=== PATIENT | female | born 1935 | race Caucasian/White ===

== ENCOUNTER 2018-04-16 11:46 | Inpatient (IN) | payer OTHER, BC ==
--- NOTE | 2018-04-16 12:05 | PDOC ---
History of Present Illness <DankEliza - Last Filed: 04/16/18 15:30> - General History Source: Patient Exam Limitations: Dementia - History of Present Illness Initial Comments: 04/16/18 15:31 The patient is an 82-year-old female, with a past medical history of HTN, diverticulitis, dementia, hypothyroidism, cardiomyopathy, and depression, who presents to the ED chest pain x1 week. The patients pain is worsened with deep inspiration and is associated with shortness of breath and a cough productive of white sputum. The patient was recently admitted in February 2018 for similar symptoms and viral URI. also has had recurrent ED visits this week, sent back to [facility] where she resides at assisted living facility. HPI is limited due to dementia. ROS is limited due to dementia. Allergies: amoxicillin, chlorhexidine, ciprofloxacin, codeine, quinolones. Social History: None reported. Surgical History: B/L knee replacement. PCP: Dr. Vidal 04/16/18 15:32 04/16/18 15:33 <Rekha Ramires - Last Filed: 04/16/18 18:51> - General Chief Complaint: Respiratory Distress Stated Complaint: Shortness of Breath Time Seen by Provider: 04/16/18 12:03 Past History <Eliza eWems - Last Filed: 04/16/18 15:30> - Past Medical History Anemia: No Asthma: No Cancer: No Cardiac Disorders: No COPD: No CHF: No Dementia: Yes Diabetes: No GI Disorders: Yes (diverticulitis) Disorders: No HTN: Yes Hypercholesterolemia: No Liver Disease: No Psychiatric Problems: Yes (depression) Seizures: No Thyroid Disease: No - Surgical History Abdominal Surgery: No Appendectomy: No Cardiac Surgery: No Cholecystectomy: No Lung Surgery: No Neurologic Surgery: No Orthopedic Surgery: Yes (bilat knee replacement) - Suicide/Smoking/Psychosocial Hx Smoking History: Never smoked Have you smoked in the past 12 months: No Information on smoking cessation initiated: No Hx Alcohol Use: No Drug/Substance Use Hx: No Substance Use Type: None Hx Substance Use Treatment: No <Rekha Ramires - Last Filed: 04/16/18 18:51> - Past Medical History Allergies/Adverse Reactions: Allergies Allergy/AdvReac Type Severity Reaction Status Date / Time amoxicillin Allergy Verified 04/16/18 11:59 chlorhexidine Allergy Verified 04/16/18 11:59 ciprofloxacin [From Cipro] Allergy Verified 04/16/18 11:59 codeine Allergy Verified 04/16/18 11:59 Quinolones Allergy Verified 04/16/18 11:59 Sulfa (Sulfonamide Allergy Verified 04/16/18 11:59 Antibiotics) sulfamethoxazole Allergy Verified 04/16/18 11:59 [From Bactrim] trimethoprim [From Bactrim] Allergy Verified 04/16/18 11:59 Home Medications: Ambulatory Orders Acetaminophen 650 mg PO QID PRN 04/16/18 Albuterol 2.5/Ipratropium 0.5 [Duoneb -] 1 neb NEB Q4H PRN 04/16/18 Albuterol Sulfate [Proventil HFA Inhaler -] 1 - 2 inh PO QID PRN 04/16/18 Comp.stocking,Thigh,Long,Small [T.e.d. Anti-Embolism Stocking] 1 each MC DAILY 04/16/18 Furosemide 40 mg PO BID 04/16/18 Ibuprofen [Advil -] 200 mg PO DAILY 04/16/18 Ipratropium/Albuterol Sulfate [Iprat-Albut 0.5-3(2.5) mg/3 ml] 3 ml IH BID 04/16 Levothyroxine [Synthroid -] 50 mcg PO DAILY 04/16/18 Mirabegron [Myrbetriq] 25 mg PO DAILY 04/16/18 Mirtazapine 7.5 mg PO HS 04/16/18 Montelukast Na [Singulair -] 10 mg PO HS 04/16/18 Multivit,Tx with Iron,Minerals [Sfyuilwm-Y-V with Minerals] 1 each PO DAILY *Physical Exam - Vital Signs Last Vital Signs Temp Pulse Resp BP Pulse Ox 98.2 F 86 20 117/73 100 04/16/18 12:30 04/16/18 12:50 04/16/18 12:50 04/16/18 12:50 04/16/18 12:50 <Eliza Weems - Last Filed: 04/16/18 15:30> - Vital Signs Last Vital Signs Temp Pulse Resp BP Pulse Ox 99.2 F 86 22 H 143/65 89 L 04/16/18 11:56 04/16/18 11:56 04/16/18 11:56 04/16/18 11:56 04/16/18 11:56 - Physical Exam Comments: 04/16/18 15:33 General: Well appearing, awake, NAD. speaking full sentences. HEENT: NCAT, PERRL, EOMI, clear conjunctiva, anicteric, moist mucus membranes, clear oropharynx, no oral lesions.. Neck: neck supple, FROM Resp: (+)Scant rhonchi at the bases. no wheezing or respiratory distress or tachypnea. CVS: RRR, no murmurs, 2+ peripheral pulses throughout, no peripheral edema Abdomen: soft, NTND, no peritoneal signs. Back: nontender, normal inspection and ROM MSK: no edema, GONZALEZ x4, ROM intact. No clubbing or cyanosis. normal bulk and tone. Neuro: (+)Patient is confused and oriented only to person. No focal neurologic deficits. SILT, 5/5 distal and prox strength in all extrem. Skin: warm and well perfused, cap refill <2 sec, normal color 04/16/18 15:34 <Rekha Ramires - Last Filed: 04/16/18 18:51> ED Treatment Course - LABORATORY CBC & Chemistry Diagram: 04/16/18 12:45 04/16/18 12:45 - ADDITIONAL ORDERS Additional order review: Laboratory Results 04/16/18 04/16/18 12:45 12:45 PT with INR 10.70 INR 0.95 Sodium 138 Potassium 4.7 Chloride 100 Carbon Dioxide 31 Anion Gap 6 L BUN 19 H Creatinine 1.1 Creat Clearance w eGFR 47.43 Random Glucose 185 H Calcium 8.6 Magnesium 2.2 Total Bilirubin 0.5 AST 42 H ALT 27 Alkaline Phosphatase 62 Troponin I < 0.02 Total Protein 6.4 Albumin 2.9 L 04/16/18 12:45 RBC 3.93 MCV 97.6 H MCHC 32.3 RDW 15.1 MPV 9.1 D Neutrophils % 75.2 D Lymphocytes % 10.9 D Monocytes % 7.8 Eosinophils % 2.7 Basophils % 3.4 H D - Medications Given in the ED: ED Medications Discontinued Medications Generic Name Dose Route Start Last Admin Trade Name Freq PRN Reason Stop Dose Admin Albuterol/Ipratropium 1 amp 04/16/18 13:11 04/16/18 13:15 Duoneb - NEB 04/16/18 13:12 1 amp ONCE ONE Administration <Eliza Weems - Last Filed: 04/16/18 15:30> - LABORATORY CBC & Chemistry Diagram: 04/16/18 12:45 04/16/18 12:45 <Rekha Ramires - Last Filed: 04/16/18 18:51> Medical Decision Making - Medical Decision Making 04/16/18 15:31 Calvin 82 YOF past medical history of COPD?, HTN, diverticulitis, dementia, hypothyroidism, cardiomyopathy, and depression presenting with chest pain, cough and sob x 1 week, recent admit for similar sx and viral URI in February 2018. History slightly limited due to dementia. - per PMD, does have recurrent ED visits for sob/cough and seen several times in ED this week. DDx. viral bronchitis, pneumonia, effusion, COPD,. ACS, costochondritis. Vital signs reviewed, wnl. no fevers here. on supp O2 for comfort and mild spO2 drop to 89% on RA initially Medical Plan: CBC, CMP, ECG, cards panel/trop. CXR Prior notes reviewed, including admissions, discharges and consultations. laboratory results and imaging reviewed, basic labs, coags, and lytes wnl, notable for neg trop so doubt ACS. EKG normal sinus rhythm, no interval abnormalities, narrow QRS, ST and T wave segments and morphology normal. Nonspecific T wave abnormalities, LAD, poor R wave progression, unchanged from prior. ED course: given duonebs for cough and respiratory support, no wheezing or respiratory distress, titrating off O2. has had prior CT imaging done, unlikely PE. in no acute distress, remains stable. - spoke with Dr Vidal, updated with results, no indication for admission, if SpO2 >90%, and has ?COPD.had discussion with family members, amenable to observation admission, monitoring and rehab placement. 04/16/18 16:08 04/16/18 16:09 <Rekha Ramires - Last Filed: 04/16/18 18:51> *DC/Admit/Observation/Transfer - Attestations Scribe Attestion: 04/16/18 14:31 Documentation prepared by Eliza Weems, acting as quality engineer medical device for Rekha Ramires MD. <Eliza Weems Last Filed: 04/16/18 15:30> - Discharge Dispostion Decision to Admit order: Yes Decision to Admit order Date/Time: 04/16/18 16:08 Decision to Admit Order Category Date Time Status Decision to Admit to Hospital Routine Admission 04/16/18 16:02 Ordered - Attestations Physician Attestion: 04/16/18 18:51 I, Rekha Ramires MD, attest that this document has been prepared under my direction and personally reviewed by me in its entirety. I further attest, that it accurately reflects all work, treatment, procedures and medical decision -making performed by me. <Rkeha Ramires - Last Filed: 04/16/18 18:51> Diagnosis at time of Disposition: Chest pain, Shortness of breath, Hypoxia - Discharge Dispostion Condition at time of disposition: Guarded
[2018-04-16 13:03] LABS: BASO % 3.4 % (0-2.0); EOS % 2.7 % (0-4.5); HEMATOCRIT 38.3 % (32.4-45.2); HEMOGLOBIN 12.4 GM/dL (10.7-15.3); LYMPH % 10.9 % (8-40); MCH 31.5 pg (25.7-33.7); MCHC 32.3 g/dl (32.0-36.0); MEAN CELL VOLUME 97.6 fl (80-96); MEAN PLT VOLUME 9.1 fl (7.5-11.1); MONO % 7.8 % (3.8-10.2); NEUT % 75.2 % (42.8-82.8); PLATELET COUNT 157 K/MM3 (134-434); RBC 3.93 M/mm3 (3.60-5.2); RDW 15.1 % (11.6-15.6); WHITE BLOOD COUNT 6.4 K/mm3 (4.0-10.0)
[2018-04-16] MEDS ORDERED: ALBUTEROL SO4 2.5/IPRATROPIUM 0.5 INH SOL 3 ML VIAL.NEB. NEB ONE ×4 (13:11→15:46)
[2018-04-16 13:23] LABS: INR 0.95 (0.83-1.09); PROTHROMBIN TIME (PATIENT) 10.7 SEC (9.7-13.0)
[2018-04-16 13:38] LABS: ALBUMIN 2.9 g/dl (3.4-5.0); ALK PHOS 62 U/L (45-117); ANION GAP 6 MMOL/L (8-16); BILIRUBIN,TOTAL 0.5 mg/dL (0.2-1); BLOOD UREA NITROGEN 19 mg/dL (7-18); CALCIUM 8.6 mg/dL (8.5-10.1); CHLORIDE 100 mmol/L (98-107); CO2 31 mmol/L (21-32); CREATININE 1.1 mg/dL (0.55-1.3); GLUCOSE,RANDOM 185 mg/dL (74-106); MAGNESIUM 2.2 mg/dL (1.8-2.4); POTASSIUM 4.7 mmol/L (3.5-5.1); SGOT/AST 42 U/L (15-37); SGPT/ALT 27 U/L (13-61); SODIUM 138 mmol/L (136-145); TOT PROT 6.4 g/dl (6.4-8.2)
[2018-04-16] MEDS ORDERED: methylPREDNISolone NA SUCC 125 MG/2 ML VIAL IVPUSH ONE (14:42)
--- NOTE | 2018-04-16 15:08 | EKG ---
Test Reason : Blood Pressure : / mmHG Vent. Rate : 089 BPM Atrial Rate : 089 BPM P-R Int : 154 ms QRS Dur : 110 ms QT Int : 356 ms P-R-T Axes : -15 -46 084 degrees QTc Int : 433 ms NORMAL SINUS RHYTHM WITH SINUS ARRHYTHMIA LEFT ANTERIOR FASCICULAR BLOCK LEFT VENTRICULAR HYPERTROPHY WITH REPOLARIZATION ABNORMALITY ABNORMAL ECG WHEN COMPARED WITH ECG OF 28-FEB-2018 15:02, INCOMPLETE LEFT BUNDLE BRANCH BLOCK IS NO LONGER PRESENT Confirmed by RANDY GRANDE MD ([id number]) on 04/16/2018 3:08:27 PM Referred By: Confirmed By:RANDY GRANDE MD
[2018-04-16] MEDS ORDERED: methylPREDNISolone NA SUCC 125 MG/2 ML VIAL ONE (15:46)
[2018-04-16 16:45] LABS: VENOUS PC02 59.4 mmHg (38-52); VENOUS PH 7.36 (7.32-7.42); VENOUS PO2 37.7 mmHg (28-48)
[2018-04-16] MEDS ORDERED: BUDESONIDE/FORMETEROL FUMARATE 80/4.5 mcg INHALER IH ONE (17:02)
--- NOTE | 2018-04-16 21:57 | HP ---
Admitting History and Physical - Admission Chief Complaint: short og breath History of Present Illness: 82-year-old female, with a PMH of HTN, diverticulitis, dementia with aggressive behavior, hypothyroidism, cardiomyopathy, and depression, who presents to the ED chest pain/ shortness of breath x1 week. She is followed by Dr. Marcello Parikh and was seen in his office 2 days ago-- Saturday04/14/18, no changes made and set for follow up in 4 months. Patient has been in ER 3 times in the last 10 days -- ER work up has been negative except for baseline COPD. She has dementia so hx is limited and not consistent. I have discussed care with daughter Yeimi and sister in law Raysa Phillips. The patient reports inc SOB with any activity / report chest pain but denies diaphoresis / pain radiation , and is unclear what precipitates or alleviates the pain. She was recently admitted to [facility] (2 weeks ago) for COPD exacerbation. Earlier in the summer was admitted to [facility] in February 2018 for similar symptoms and viral URI. She resides at [address] [place] [address] in the assisted living floors. HPI is limited due to dementia. 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 Cardiovascular: Yes: CAD, CHF, HTN Pulmonary: Yes: COPD Renal/: Yes: Renal Inusuff Reproductive: Yes: Postmenopausal Psych: Yes: Anxiety - Past Surgical History Past Surgical History: Yes: None - Smoking History Smoking history: Never smoked Have you smoked in the past 12 months: No - Alcohol/Substance Use Hx Alcohol Use: No - Social History Usual Living Arrangement: Yes: Assisted Living ADL: Support Services History of Recent Travel: No Home Medications - Allergies Allergies/Adverse Reactions: Allergies Allergy/AdvReac Type Severity Reaction Status Date / Time amoxicillin Allergy Verified 04/16/18 11:59 chlorhexidine Allergy Verified 04/16/18 11:59 ciprofloxacin [From Cipro] Allergy Verified 04/16/18 11:59 codeine Allergy Verified 04/16/18 11:59 Quinolones Allergy Verified 04/16/18 11:59 Sulfa (Sulfonamide Allergy Verified 04/16/18 11:59 Antibiotics) sulfamethoxazole Allergy Verified 04/16/18 11:59 [From Bactrim] trimethoprim [From Bactrim] Allergy Verified 04/16/18 11:59 - Home Medications Home Medications: Ambulatory Orders Acetaminophen 650 mg PO QID PRN 04/16/18 Albuterol 2.5/Ipratropium 0.5 [Duoneb -] 1 neb NEB Q4H PRN 04/16/18 Albuterol Sulfate [Proventil HFA Inhaler -] 1 - 2 inh PO QID PRN 04/16/18 Comp.stocking,Thigh,Long,Small [T.e.d. Anti-Embolism Stocking] 1 each MC DAILY 04/16/18 Furosemide 40 mg PO BID 04/16/18 Ibuprofen [Advil -] 200 mg PO DAILY 04/16/18 Ipratropium/Albuterol Sulfate [Iprat-Albut 0.5-3(2.5) mg/3 ml] 3 ml IH BID 04/16 Levothyroxine [Synthroid -] 50 mcg PO DAILY 04/16/18 Mirabegron [Myrbetriq] 25 mg PO DAILY 04/16/18 Mirtazapine 7.5 mg PO HS 04/16/18 Montelukast Na [Singulair -] 10 mg PO HS 04/16/18 Multivit,Tx with Iron,Minerals [Msatyabb-G-I with Minerals] 1 each PO DAILY Review of Systems Unable to obtain ROS, reason: dementia - Review of Systems Constitutional: denies: Chills, Diaphoresis, Fever, Lethargy, Loss of Appetite, Night Sweats, Weakness Eyes: reports: No Symptoms HENT: reports: No Symptoms Neck: reports: No Symptoms Cardiovascular: reports: Shortness of Breath Respiratory: reports: Cough, Exercise Intolerance, SOB on Exertion Gastrointestinal: reports: No Symptoms Genitourinary: reports: No Symptoms Breasts: reports: No Symptoms Reported Musculoskeletal: reports: No Symptoms Integumentary: reports: No Symptoms Neurological: reports: Pre-Existing Deficit, Unsteady Gait Physical Examination Vital Signs: Vital Signs Temperature 98.0 F 04/16/18 19:40 Pulse Rate 92 H 04/16/18 19:40 Respiratory Rate 18 04/16/18 19:40 Blood Pressure 145/66 04/16/18 19:40 O2 Sat by Pulse Oximetry (%) 95 04/16/18 19:40 Constitutional: Yes: Mild Distress, Obese Eyes: Yes: WNL, Conjunctiva Clear HENT: Yes: WNL, Atraumatic, Normocephalic Neck: Yes: Trachea Midline Cardiovascular: Yes: Regular Rate and Rhythm Respiratory: Yes: Poor Air Entry, SOB on Exertion Gastrointestinal: Yes: Normal Bowel Sounds, Abdomen, Obese ...Rectal Exam: Yes: Deferred Renal/: Yes: WNL Breast(s): Yes: WNL Edema: Yes Peripheral Pulses WNL: No Neurological: Yes: Confusion, Pre-Existing Deficit, Unsteady Gait Psychiatric: Yes: Alert Labs: CBC, BMP 04/16/18 12:45 04/16/18 12:45
[2018-04-16] MEDS: ALBUTEROL SO4 2.5/IPRATROPIUM 0.5 INH SOL 3 ML VIAL.NEB. NEB SCH (23:00)
[2018-04-16] MEDS: DOCUSATE SODIUM 100 MG CAPSULE (FP) PO SCH (23:29)
[2018-04-16] MEDS: methylPREDNISolone NA SUCC 40 MG/1 ML VIAL IVPUSH SCH (23:29)
[2018-04-16] MEDS: MONTELUKAST NA 10 MG TABLET PO SCH (23:30)
[2018-04-17] MEDS ORDERED: ALBUTEROL SO4 2.5/IPRATROPIUM 0.5 INH SOL 3 ML VIAL.NEB. NEB PRN (02:24)
[2018-04-17] MEDS ORDERED: ALBUTEROL SO4 2.5/IPRATROPIUM 0.5 INH SOL 3 ML VIAL.NEB. NEB ONE (02:26)
[2018-04-17] MEDS: ALBUTEROL SO4 2.5/IPRATROPIUM 0.5 INH SOL 3 ML VIAL.NEB. NEB SCH ×4 (07:25→20:20)
[2018-04-17] MEDS: FUROSEMIDE 40 MG TABLET (FP) PO SCH ×2 (08:06→15:05)
[2018-04-17] MEDS ORDERED: PT OWN MED DRAWER 7, Y5N ONE (10:29)
[2018-04-17] MEDS: DOCUSATE SODIUM 100 MG CAPSULE (FP) PO SCH ×2 (10:37→21:39)
[2018-04-17] MEDS: POLYETHYLENE GLYCOL 3350 119 GM BTL PO SCH (10:37)
[2018-04-17] MEDS: methylPREDNISolone NA SUCC 40 MG/1 ML VIAL IVPUSH SCH ×2 (10:37→21:39)
--- NOTE | 2018-04-17 12:03 | CON.PULM ---
Consult Consult Specialty:: PULMONARY Referred by:: Dr. Vidal Reason for Consultation:: shortness of breath - History of Present Illness Chief Complaint: shortness of breath History of Present Illness: 82yo female with h/o HTN, hypothyroidism, depression, dementia who was admitted with worsening shortness of breath x 1 week. She denies any chest pain or discomfort. no palpitations. She does endorse a nonproductive cough without wheezing. No fevers, chills or sweats. She was recently admitted for a COPD exacerbation. 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 Denies any history of asthma or COPD. Does report some improvement with nebulizer treatments. 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 Cardio/Vascular: Yes: CAD, CHF, HTN Pulmonary: Yes: COPD Renal/: Yes: Renal Inusuff Psych: Yes: Anxiety - Past Surgical History Past Surgical History: Yes: None - Alcohol/Substance Use Hx Alcohol Use: No - Smoking History Smoking history: Never smoked Have you smoked in the past 12 months: No - Social History ADL: Support Services History of Recent Travel: No Home Medications - Allergies Allergies/Adverse Reactions: Allergies Allergy/AdvReac Type Severity Reaction Status Date / Time amoxicillin Allergy Verified 04/16/18 11:59 chlorhexidine Allergy Verified 04/16/18 11:59 ciprofloxacin [From Cipro] Allergy Verified 04/16/18 11:59 codeine Allergy Verified 04/16/18 11:59 Quinolones Allergy Verified 04/16/18 11:59 Sulfa (Sulfonamide Allergy Verified 04/16/18 11:59 Antibiotics) sulfamethoxazole Allergy Verified 04/16/18 11:59 [From Bactrim] trimethoprim [From Bactrim] Allergy Verified 04/16/18 11:59 - Home Medications Home Medications: Ambulatory Orders Acetaminophen 650 mg PO QID PRN 04/16/18 Albuterol 2.5/Ipratropium 0.5 [Duoneb -] 1 neb NEB Q4H PRN 04/16/18 Albuterol Sulfate [Proventil HFA Inhaler -] 1 - 2 inh PO QID PRN 04/16/18 Comp.stocking,Thigh,Long,Small [T.e.d. Anti-Embolism Stocking] 1 each MC DAILY 04/16/18 Furosemide 40 mg PO BID 04/16/18 Ibuprofen [Advil -] 200 mg PO DAILY 04/16/18 Ipratropium/Albuterol Sulfate [Iprat-Albut 0.5-3(2.5) mg/3 ml] 3 ml IH BID 04/16 Levothyroxine [Synthroid -] 50 mcg PO DAILY 04/16/18 Mirabegron [Myrbetriq] 25 mg PO DAILY 04/16/18 Mirtazapine 7.5 mg PO HS 04/16/18 Montelukast Na [Singulair -] 10 mg PO HS 04/16/18 Multivit,Tx with Iron,Minerals [Ybvvbori-C-K with Minerals] 1 each PO DAILY Review of Systems - Review of Systems Constitutional: denies: Chills, Fever Eyes: denies: Recent Change in Vision HENT: denies: Nasal Congestion, Throat Pain Neck: denies: Stiffness, Tenderness Cardiovascular: denies: Chest Pain, Shortness of Breath Respiratory: reports: Cough. denies: Hemoptysis, Wheezing Gastrointestinal: denies: Abdominal Pain, Nausea, Vomiting Genitourinary: denies: Dysuria, Hematuria Neurological: denies: Dizziness, Headache Physical Exam Vital Sings: Vital Signs Temperature 97.8 F 04/17/18 06:00 Pulse Rate 95 H 04/17/18 06:00 Respiratory Rate 20 04/17/18 06:00 Blood Pressure 151/88 04/17/18 06:00 O2 Sat by Pulse Oximetry (%) 93 L 04/16/18 22:02 Constitutional: Yes: Calm Eyes: Yes: Conjunctiva Clear, EOM Intact HENT: Yes: Atraumatic, Normocephalic Neck: Yes: Supple, Trachea Midline Cardiovascular: Yes: Regular Rate and Rhythm Respiratory: Yes: Diminished (distant breath sounds). No: Wheezes ...Clubbing: No Gastrointestinal: Yes: Normal Bowel Sounds, Soft. No: Tenderness Edema: No Labs: CBC, BMP 04/16/18 12:45 04/16/18 12:45 Imaging - Results Chest X-ray: Report Reviewed, Image Reviewed (no infiltrates) Problem List - Problems (1) COPD exacerbation Code(s): J44.1 - CHRONIC OBSTRUCTIVE PULMONARY DISEASE W (ACUTE) EXACERBATION (2) Cough Code(s): R05 - COUGH (3) HTN (hypertension) Code(s): I10 - ESSENTIAL (PRIMARY) HYPERTENSION (4) Hypothyroidism Code(s): E03.9 - HYPOTHYROIDISM, UNSPECIFIED Assessment/Plan Cough r/o Acute COPD Exacerbation Pulmonary HTN HTN Hypothyroidism Dementia - agree with empiric steroids - inhaled bronchodilators - O2 to keep SpO2 >90% - will need outpt PFTs - DVT prophylaxis Thank you for this consult Marcello Hall MD
--- NOTE | 2018-04-17 13:05 | PN ---
Progress Note (short form) - Note Progress Note: 82 y/o female admitted for sob/ cough and chest pain. Denies pain and discomfort. Pt found lying comfortably with O2 in place. Vital Signs Period Temp Pulse Resp BP Sys/Fox Pulse Ox Last 24 Hr 97.5 F-98.6 F 84-95 18-20 121-151/65-88 93-95 CBC, BMP 04/16/18 12:45 04/16/18 12:45 HEENT- NL Neck- Supple Lungs- CTAB Heart-S1/S2 Abd-obese Ext-No LE edema Active Medications Acetaminophen (Tylenol -) 650 mg PO Q4H PRN PRN Reason: PAIN LEVEL 1-5 Albuterol/Ipratropium (Duoneb -) 1 amp NEB RQID [facility] Last Admin: 04/17/18 11:51 Dose: 1 amp Albuterol/Ipratropium (Duoneb -) 1 amp NEB Q4H PRN PRN Reason: SHORT OF BREATH/WHEEZING Last Admin: 04/17/18 03:01 Dose: 1 amp Docusate Sodium (Colace -) 200 mg PO BID [facility] Last Admin: 04/17/18 10:37 Dose: 200 mg Furosemide (Lasix -) 40 mg PO BIDLASIX [facility] Last Admin: 04/17/18 08:06 Dose: 40 mg Methylprednisolone Sodium Succinate (Solu-Medrol -) 40 mg IVPUSH BID [facility] Last Admin: 04/17/18 10:37 Dose: 40 mg Montelukast Sodium (Singulair -) 10 mg PO HS [facility] Last Admin: 04/16/18 23:30 Dose: 10 mg Polyethylene Glycol (Miralax (For Daily Use) -) 17 gm PO DAILY [facility] Last Admin: 04/17/18 10:37 Dose: 17 gm # COPD Pulm consult appreciated cont inhaled bronchodilators cont steroids will need outpt PFTs O2 Sat 93-95 currently #HTN BP stable #Dementia Behavior stable
[2018-04-17] MEDS: MONTELUKAST NA 10 MG TABLET PO SCH (21:39)
[2018-04-18] MEDS: ACETAMINOPHEN 325 MG TABLET (FP) PO PRN ×2 (02:19→23:37)
[2018-04-18] MEDS: FUROSEMIDE 40 MG TABLET (FP) PO SCH ×2 (06:46→14:13)
[2018-04-18 07:32] LABS: BASO % 0.2 % (0-2.0); HEMATOCRIT 33.9 % (32.4-45.2); LYMPH % 7.1 % (8-40); MCH 31.6 pg (25.7-33.7); MCHC 32.5 g/dl (32.0-36.0); MEAN CELL VOLUME 97.3 fl (80-96); MEAN PLT VOLUME 7.9 fl (7.5-11.1); MONO % 7.7 % (3.8-10.2); PLATELET COUNT 252 K/MM3 (134-434); RBC 3.48 M/mm3 (3.60-5.2); WHITE BLOOD COUNT 11.5 K/mm3 (4.0-10.0)
[2018-04-18] MEDS: ALBUTEROL SO4 2.5/IPRATROPIUM 0.5 INH SOL 3 ML VIAL.NEB. NEB SCH ×4 (07:32→21:23)
[2018-04-18 08:02] LABS: ALBUMIN 2.8 g/dl (3.4-5.0); ALK PHOS 54 U/L (45-117); ANION GAP 6 MMOL/L (8-16); BILIRUBIN,TOTAL 0.3 mg/dL (0.2-1); BLOOD UREA NITROGEN 37 mg/dL (7-18); CALCIUM 8.7 mg/dL (8.5-10.1); CHLORIDE 101 mmol/L (98-107); CO2 32 mmol/L (21-32); CREATININE 1.4 mg/dL (0.55-1.3); POTASSIUM 4.6 mmol/L (3.5-5.1); SGOT/AST 13 U/L (15-37); SGPT/ALT 20 U/L (13-61); SODIUM 139 mmol/L (136-145); TOT PROT 6.1 g/dl (6.4-8.2)
[2018-04-18 09:33] LABS: GLUCOSE,RANDOM 344 mg/dL (74-106)
--- NOTE | 2018-04-18 09:58 | PN ---
Progress Note (short form) - Note Progress Note: 82 y/o female found sitting in bed eating breakfast. States that she had difficulty sleeping. Denies pain/sob. O2 in place via nasal cannula. Vital Signs Period Temp Pulse Resp BP Sys/Fox Pulse Ox Last 24 Hr 97.4 F-97.7 F 71-88 16-24 110-129/50-74 92 CBC, BMP 04/18/18 06:30 04/18/18 06:30 HEENT- NL Neck-Supple Lungs-CTAB Heart- S1/S2 Abd- Soft, NT, Obese Ext- No LE edema Active Medications Acetaminophen (Tylenol -) 650 mg PO Q4H PRN PRN Reason: PAIN LEVEL 1-5 Last Admin: 04/18/18 02:19 Dose: 650 mg Albuterol/Ipratropium (Duoneb -) 1 amp NEB RQID [facility] Last Admin: 04/17/18 20:20 Dose: 1 amp Albuterol/Ipratropium (Duoneb -) 1 amp NEB Q4H PRN PRN Reason: SHORT OF BREATH/WHEEZING Last Admin: 04/17/18 03:01 Dose: 1 amp Docusate Sodium (Colace -) 200 mg PO BID [facility] Last Admin: 04/17/18 21:39 Dose: 200 mg Furosemide (Lasix -) 40 mg PO BIDLASIX [facility] Last Admin: 04/18/18 06:46 Dose: 40 mg Methylprednisolone Sodium Succinate (Solu-Medrol -) 40 mg IVPUSH BID [facility] Last Admin: 04/17/18 21:39 Dose: 40 mg Montelukast Sodium (Singulair -) 10 mg PO HS [facility] Last Admin: 04/17/18 21:39 Dose: 10 mg Polyethylene Glycol (Miralax (For Daily Use) -) 17 gm PO DAILY [facility] Last Admin: 04/17/18 10:37 Dose: 17 gm #Elevated [id number] BGM orders placed Novolog sliding scale # COPD cont inhaled bronchodilators cont steroids will need outpt PFTs O2 Sat 92 #HTN BP stable #Dementia Behavior stable
[2018-04-18] MEDS: methylPREDNISolone NA SUCC 40 MG/1 ML VIAL IVPUSH SCH ×2 (10:45→21:25)
[2018-04-18] MEDS: DOCUSATE SODIUM 100 MG CAPSULE (FP) PO SCH ×2 (10:46→21:25)
[2018-04-18] MEDS: POLYETHYLENE GLYCOL 3350 119 GM BTL PO SCH (10:46)
[2018-04-18] MEDS: INSULIN SLIDING SCALE (NOVOLOG) 1 VIAL SQ SCH ×3 (12:12→21:25)
[2018-04-18] MEDS: sitaGLIPtin PHOSPHATE 50 MG TABLET PO SCH (12:24)
--- NOTE | 2018-04-18 13:14 | PN ---
Progress Note, Physician History of Present Illness: PULMONARY FEELING BETTER,LESS DYSPNEIC - Current Medication List Current Medications: Active Medications Acetaminophen (Tylenol -) 650 mg PO Q4H PRN PRN Reason: PAIN LEVEL 1-5 Last Admin: 04/18/18 02:19 Dose: 650 mg Albuterol/Ipratropium (Duoneb -) 1 amp NEB RQID [facility] Last Admin: 04/18/18 11:45 Dose: 1 amp Albuterol/Ipratropium (Duoneb -) 1 amp NEB Q4H PRN PRN Reason: SHORT OF BREATH/WHEEZING Last Admin: 04/17/18 03:01 Dose: 1 amp Docusate Sodium (Colace -) 200 mg PO BID [facility] Last Admin: 04/18/18 10:46 Dose: 200 mg Furosemide (Lasix -) 40 mg PO BIDLASIX [facility] Last Admin: 04/18/18 06:46 Dose: 40 mg Insulin Aspart (Novolog Vial Sliding Scale -) 1 vial SQ ACHS [facility]; Protocol Last Admin: 04/18/18 12:12 Dose: 8 units Methylprednisolone Sodium Succinate (Solu-Medrol -) 40 mg IVPUSH BID [facility] Last Admin: 04/18/18 10:45 Dose: 40 mg Montelukast Sodium (Singulair -) 10 mg PO HS [facility] Last Admin: 04/17/18 21:39 Dose: 10 mg Polyethylene Glycol (Miralax (For Daily Use) -) 17 gm PO DAILY [facility] Last Admin: 04/18/18 10:46 Dose: 17 gm Sitagliptin Phosphate (Januvia -) 50 mg PO DAILY@0700 [facility] Last Admin: 04/18/18 12:24 Dose: 50 mg - Objective Vital Signs: Vital Signs Temperature 97.5 F L 04/18/18 10:40 Pulse Rate 73 04/18/18 10:40 Respiratory Rate 24 H 04/18/18 10:40 Blood Pressure 120/88 04/18/18 10:40 O2 Sat by Pulse Oximetry (%) 92 L 04/17/18 21:00 Constitutional: Yes: Well Nourished, Calm Eyes: Yes: WNL HENT: Yes: WNL Neck: Yes: WNL Cardiovascular: Yes: Regular Rate and Rhythm, S1, S2 Respiratory: Yes: Wheezes (SCATTERED ZEE WHEEZES) Gastrointestinal: Yes: Normal Bowel Sounds, Soft Extremities: Yes: WNL Edema: No Labs: CBC, BMP 04/18/18 06:30 04/18/18 06:30 INR, PTT INR 0.95 (0.83-1.09) 04/16/18 12:45 Assessment/Plan Problem List - Problems (1) COPD exacerbation Code(s): J44.1 - CHRONIC OBSTRUCTIVE PULMONARY DISEASE W (ACUTE) EXACERBATION (2) Cough Code(s): R05 - COUGH (3) HTN (hypertension) Code(s): I10 - ESSENTIAL (PRIMARY) HYPERTENSION (4) Hypothyroidism Code(s): E03.9 - HYPOTHYROIDISM, UNSPECIFIED Assessment/Plan Cough r/o Acute COPD Exacerbation Pulmonary HTN HTN Hypothyroidism Dementia - steroids - inhaled bronchodilators - O2 to keep SpO2 >90% - outpt PFTs - DVT prophylaxis DR HUERTAS
[2018-04-18] MEDS ORDERED: INSULIN (NOVOLOG) ASPART 100 UNITS/ML 10ML VIAL ONE (21:06)
[2018-04-18] MEDS: MONTELUKAST NA 10 MG TABLET PO SCH (21:25)
[2018-04-19] MEDS: INSULIN SLIDING SCALE (NOVOLOG) 1 VIAL SQ SCH ×4 (06:51→23:22)
[2018-04-19] MEDS: sitaGLIPtin PHOSPHATE 50 MG TABLET PO SCH (06:51)
[2018-04-19] MEDS: FUROSEMIDE 40 MG TABLET (FP) PO SCH ×2 (06:51→14:00)
[2018-04-19] MEDS: ALBUTEROL SO4 2.5/IPRATROPIUM 0.5 INH SOL 3 ML VIAL.NEB. NEB SCH ×4 (07:40→20:50)
[2018-04-19 08:56] LABS: BASO % 0.3 % (0-2.0); EOS % 0.1 % (0-4.5); HEMATOCRIT 36.8 % (32.4-45.2); HEMOGLOBIN 11.9 GM/dL (10.7-15.3); LYMPH % 15.9 % (8-40); MCH 31.7 pg (25.7-33.7); MCHC 32.3 g/dl (32.0-36.0); MEAN CELL VOLUME 98.2 fl (80-96); MEAN PLT VOLUME 7.9 fl (7.5-11.1); MONO % 6.7 % (3.8-10.2); PLATELET COUNT 264 K/MM3 (134-434); RBC 3.75 M/mm3 (3.60-5.2); RDW 14.9 % (11.6-15.6); WHITE BLOOD COUNT 10.7 K/mm3 (4.0-10.0)
[2018-04-19 09:20] LABS: ALBUMIN 3.1 g/dl (3.4-5.0); ALK PHOS 57 U/L (45-117); ANION GAP 2 MMOL/L (8-16); BILIRUBIN,TOTAL 0.3 mg/dL (0.2-1); BLOOD UREA NITROGEN 40 mg/dL (7-18); CALCIUM 9.4 mg/dL (8.5-10.1); CHLORIDE 99 mmol/L (98-107); CO2 39 mmol/L (21-32); CREATININE 1.3 mg/dL (0.55-1.3); GLUCOSE,RANDOM 164 mg/dL (74-106); POTASSIUM 4.2 mmol/L (3.5-5.1); SGOT/AST 15 U/L (15-37); SGPT/ALT 21 U/L (13-61); SODIUM 140 mmol/L (136-145); TOT PROT 6.2 g/dl (6.4-8.2)
[2018-04-19] MEDS: methylPREDNISolone NA SUCC 40 MG/1 ML VIAL IVPUSH SCH ×2 (09:48→23:22)
[2018-04-19] MEDS: DOCUSATE SODIUM 100 MG CAPSULE (FP) PO SCH ×2 (09:48→23:22)
[2018-04-19] MEDS: POLYETHYLENE GLYCOL 3350 119 GM BTL PO SCH (09:56)
--- NOTE | 2018-04-19 12:02 | PN ---
Progress Note (short form) - Note Progress Note: PULMONARY Breathing better. +cough nonproductive. Vital Signs Period Temp Pulse Resp BP Sys/Fox Pulse Ox Last 24 Hr 97.6 F-98.0 F 62-77 20-24 119-144/54-72 94 Gen: NAD at rest Heart: RRR Lung: scattered rhonchi Abd: soft, nontender Ext: no edema CBC, BMP 04/19/18 08:15 04/19/18 08:15 Active Medications Acetaminophen (Tylenol -) 650 mg PO Q4H PRN PRN Reason: PAIN LEVEL 1-5 Last Admin: 04/18/18 23:37 Dose: 650 mg Albuterol/Ipratropium (Duoneb -) 1 amp NEB RQID [facility] Last Admin: 04/19/18 11:30 Dose: 1 amp Albuterol/Ipratropium (Duoneb -) 1 amp NEB Q4H PRN PRN Reason: SHORT OF BREATH/WHEEZING Last Admin: 04/17/18 03:01 Dose: 1 amp Docusate Sodium (Colace -) 200 mg PO BID [facility] Last Admin: 04/19/18 09:48 Dose: 200 mg Furosemide (Lasix -) 40 mg PO BIDLASIX [facility] Last Admin: 04/19/18 06:51 Dose: 40 mg Insulin Aspart (Novolog Vial Sliding Scale -) 1 vial SQ ACHS [facility]; Protocol Last Admin: 04/19/18 06:51 Dose: 3 units Methylprednisolone Sodium Succinate (Solu-Medrol -) 40 mg IVPUSH BID [facility] Last Admin: 04/19/18 09:48 Dose: 40 mg Montelukast Sodium (Singulair -) 10 mg PO HS [facility] Last Admin: 04/18/18 21:25 Dose: 10 mg Polyethylene Glycol (Miralax (For Daily Use) -) 17 gm PO DAILY [facility] Last Admin: 04/19/18 09:56 Dose: 17 gm Sitagliptin Phosphate (Januvia -) 50 mg PO DAILY@0700 [facility] Last Admin: 04/19/18 06:51 Dose: 50 mg A/P Cough r/o Acute COPD Exacerbation Pulmonary HTN HTN Hypothyroidism Dementia - can likely change steroids to PO in AM and taper as outpt - inhaled bronchodilators - O2 to keep SpO2 >90% - will need outpt PFTs - DVT prophylaxis Problem List - Problems (1) COPD exacerbation Code(s): J44.1 - CHRONIC OBSTRUCTIVE PULMONARY DISEASE W (ACUTE) EXACERBATION (2) Cough Code(s): R05 - COUGH (3) HTN (hypertension) Code(s): I10 - ESSENTIAL (PRIMARY) HYPERTENSION (4) Hypothyroidism Code(s): E03.9 - HYPOTHYROIDISM, UNSPECIFIED
[2018-04-19] MEDS ORDERED: guaiFENesin/D-METHORPHAN HB 10 ML UNIT-DOSE CUPS PO PRN (12:03)
[2018-04-19] MEDS: guaiFENesin/D-METHORPHAN HB 5 ML UNIT-DOSE CUPS PO PRN (15:31)
--- NOTE | 2018-04-19 21:33 | PN ---
Progress Note (short form) - Note Progress Note: seen and examined persitent cough / no fever / chill breathing improved Vital Signs Period Temp Pulse Resp BP Sys/Fox Pulse Ox Last 24 Hr 97.6 F-98.4 F 62-69 16-20 101-144/49-69 97 obese female no distress heart s1/s2 lungs occ exp wheezing abd obese ext no edema CBC, BMP 04/19/18 08:15 04/19/18 08:15 Active Medications Acetaminophen (Tylenol -) 650 mg PO Q4H PRN PRN Reason: PAIN LEVEL 1-5 Last Admin: 04/18/18 23:37 Dose: 650 mg Albuterol/Ipratropium (Duoneb -) 1 amp NEB RQID [facility] Last Admin: 04/19/18 20:50 Dose: 1 amp Albuterol/Ipratropium (Duoneb -) 1 amp NEB Q4H PRN PRN Reason: SHORT OF BREATH/WHEEZING Last Admin: 04/17/18 03:01 Dose: 1 amp Docusate Sodium (Colace -) 200 mg PO BID [facility] Last Admin: 04/19/18 09:48 Dose: 200 mg Furosemide (Lasix -) 40 mg PO BIDLASIX [facility] Last Admin: 04/19/18 14:00 Dose: 40 mg Guaifenesin (Guaifenesin Dm Syrup) 10 ml PO Q4H PRN PRN Reason: COUGH Last Admin: 04/19/18 15:31 Dose: 10 ml Insulin Aspart (Novolog Vial Sliding Scale -) 1 vial SQ ACHS [facility]; Protocol Last Admin: 04/19/18 17:22 Dose: 3 units Methylprednisolone Sodium Succinate (Solu-Medrol -) 40 mg IVPUSH BID [facility] Last Admin: 04/19/18 09:48 Dose: 40 mg Montelukast Sodium (Singulair -) 10 mg PO HS [facility] Last Admin: 04/18/18 21:25 Dose: 10 mg Polyethylene Glycol (Miralax (For Daily Use) -) 17 gm PO DAILY [facility] Last Admin: 04/19/18 09:56 Dose: 17 gm Sitagliptin Phosphate (Januvia -) 50 mg PO DAILY@0700 [facility] Last Admin: 04/19/18 06:51 Dose: 50 mg Assmt Cough r/o Acute COPD Exacerbation Pulmonary HTN new onset DM exacerbated by steroids HTN Hypothyroidism Dementia Plan - started on Januvia added sliding scale - change steroids to PO in AM and taper as outpt - inhaled bronchodilators - O2 to keep SpO2 >90% - will need outpt follow up with pulmonary - arrange for STR at time of d/c
[2018-04-19] MEDS: MONTELUKAST NA 10 MG TABLET PO SCH (23:22)
[2018-04-20] MEDS: FUROSEMIDE 40 MG TABLET (FP) PO SCH ×2 (06:53→15:00)
[2018-04-20] MEDS: INSULIN SLIDING SCALE (NOVOLOG) 1 VIAL SQ SCH ×4 (06:53→23:44)
[2018-04-20] MEDS: sitaGLIPtin PHOSPHATE 50 MG TABLET PO SCH (06:53)
[2018-04-20] MEDS: ALBUTEROL SO4 2.5/IPRATROPIUM 0.5 INH SOL 3 ML VIAL.NEB. NEB SCH ×4 (07:50→20:42)
[2018-04-20 08:25] LABS: BASO % 0.5 % (0-2.0); HEMATOCRIT 37.5 % (32.4-45.2); HEMOGLOBIN 12.3 GM/dL (10.7-15.3); LYMPH % 12.4 % (8-40); MCHC 32.9 g/dl (32.0-36.0); MEAN CELL VOLUME 97.3 fl (80-96); MEAN PLT VOLUME 8.2 fl (7.5-11.1); NEUT % 83.1 % (42.8-82.8); PLATELET COUNT 271 K/MM3 (134-434); RBC 3.86 M/mm3 (3.60-5.2); RDW 15.2 % (11.6-15.6); WHITE BLOOD COUNT 10.5 K/mm3 (4.0-10.0)
[2018-04-20] MEDS: guaiFENesin/D-METHORPHAN HB 5 ML UNIT-DOSE CUPS PO PRN ×3 (09:12→23:22)
[2018-04-20 09:30] LABS: ANION GAP 8 MMOL/L (8-16); BLOOD UREA NITROGEN 37 mg/dL (7-18); CALCIUM 9.8 mg/dL (8.5-10.1); CHLORIDE 96 mmol/L (98-107); CHOLESTEROL 227 mg/dL (50-200); CO2 34 mmol/L (21-32); CREATININE 1.3 mg/dL (0.55-1.3); GLUCOSE,RANDOM 188 mg/dL (74-106); HDL CHOLESTEROL 72 mg/dL (40-60); POTASSIUM 4.5 mmol/L (3.5-5.1); SODIUM 138 mmol/L (136-145); TRIGLYCERIDES 114 mg/dL (0-150)
[2018-04-20] MEDS: POLYETHYLENE GLYCOL 3350 119 GM BTL PO SCH (10:24)
[2018-04-20] MEDS: DOCUSATE SODIUM 100 MG CAPSULE (FP) PO SCH ×2 (10:24→22:45)
[2018-04-20] MEDS: methylPREDNISolone NA SUCC 40 MG/1 ML VIAL IVPUSH SCH ×2 (10:24→22:46)
[2018-04-20 11:41] LABS: ANISOCYTOSIS 3+; MACROCYTOSIS 0; OVALOCYTE 1+; PLATELET ESTIMATE NORMAL
--- NOTE | 2018-04-20 12:29 | PN ---
Progress Note (short form) - Note Progress Note: seen and examined persitent cough / no fever / chill breathing improved per patient discussd new Dx of DM Vital Signs Period Temp Pulse Resp BP Sys/Fox Pulse Ox Last 24 Hr 97.6 F-98.4 F 62-69 16-20 101-144/49-69 97 obese female no distress heart s1/s2 lungs occ exp wheezing abd obese ext no edema CBC, BMP 04/20/18 07:30 04/20/18 07:30 Hgb = 8.2 Laboratory Results - last 24 hr 04/20/18 04/20/18 04/20/18 06:42 07:30 07:30 WBC 10.5 H RBC 3.86 Hgb 12.3 Hct 37.5 MCV 97.3 H MCH 32.0 MCHC 32.9 RDW 15.2 Plt Count 271 MPV 8.2 Absolute Neuts (auto) 8.7 H Total Counted Neutrophils % 83.1 H Neutrophils % (Manual) 75.7 Band Neutrophils % 3.7 Lymphocytes % 12.4 D Lymphocytes % (Manual) 15.9 D Monocytes % 4.0 Monocytes % (Manual) 2 L Eosinophils % 0.0 D Eosinophils % (Manual) 0.0 Basophils % 0.5 Basophils % (Manual) 0.0 Myelocytes % (Man) 2 Promyelocytes % (Man) 0 Blast Cells % (Manual) 0 Nucleated RBC % 0 Metamyelocytes 1 Hypochromia 0 Platelet Estimate Normal Polychromasia 0 Poikilocytosis 1+ Basophilic Stippling 1+ Anisocytosis 3+ Microcytosis 3+ Macrocytosis 0 Ovalocytes 1+ Sodium 138 Potassium 4.5 Chloride 96 L Carbon Dioxide 34 H Anion Gap 8 BUN 37 H Creatinine 1.3 Creat Clearance w eGFR 39.12 POC Glucometer 202 Random Glucose 188 H Hemoglobin A1c % Calcium 9.8 Triglycerides 114 Cholesterol 227 H Total LDL Cholesterol 127 H HDL Cholesterol 72 H Active Medications Acetaminophen (Tylenol -) 650 mg PO Q4H PRN PRN Reason: PAIN LEVEL 1-5 Last Admin: 04/18/18 23:37 Dose: 650 mg Albuterol/Ipratropium (Duoneb -) 1 amp NEB RQID [facility] Last Admin: 04/20/18 11:48 Dose: 1 amp Albuterol/Ipratropium (Duoneb -) 1 amp NEB Q4H PRN PRN Reason: SHORT OF BREATH/WHEEZING Last Admin: 04/17/18 03:01 Dose: 1 amp Docusate Sodium (Colace -) 200 mg PO BID [facility] Last Admin: 04/20/18 10:24 Dose: 200 mg Furosemide (Lasix -) 40 mg PO BIDLASIX [facility] Last Admin: 04/20/18 06:53 Dose: 40 mg Guaifenesin (Guaifenesin Dm Syrup) 10 ml PO Q4H PRN PRN Reason: COUGH Last Admin: 04/20/18 09:12 Dose: 10 ml Insulin Aspart (Novolog Vial Sliding Scale -) 1 vial SQ ACHS [facility]; Protocol Last Admin: 04/20/18 11:41 Dose: 3 units Methylprednisolone Sodium Succinate (Solu-Medrol -) 40 mg IVPUSH BID [facility] Last Admin: 04/20/18 10:24 Dose: 40 mg Montelukast Sodium (Singulair -) 10 mg PO HS [facility] Last Admin: 04/19/18 23:22 Dose: 10 mg Polyethylene Glycol (Miralax (For Daily Use) -) 17 gm PO DAILY [facility] Last Admin: 04/20/18 10:24 Dose: 17 gm Sitagliptin Phosphate (Januvia -) 50 mg PO DAILY@0700 [facility] Last Admin: 04/20/18 06:53 Dose: 50 mg Assmt Cough r/o Acute COPD Exacerbation Pulmonary HTN new onset DM exacerbated by steroids HTN Hypothyroidism Dementia Plan - started on Januvia added sliding scale - change steroids to PO in AM and taper as outpt - inhaled bronchodilators - O2 to keep SpO2 >90% - will need outpt follow up with pulmonary - arrange for STR at time of d/c
[2018-04-20] MEDS ORDERED: ALBUTEROL SO4 0.083% IH SOL 2.5 MG/3 ML VIAL.NEB. NEB PRN (13:24)
--- NOTE | 2018-04-20 13:24 | PN ---
Progress Note (short form) - Note Progress Note: PULMONARY Breathing better. +cough nonproductive. Vital Signs Period Temp Pulse Resp BP Sys/Fox Pulse Ox Last 24 Hr 97.7 F-98.5 F 68-78 16-24 101-139/49-65 97 Gen: NAD at rest Heart: RRR Lung: scattered rhonchi Abd: soft, nontender Ext: no edema CBC, BMP 04/20/18 07:30 04/20/18 07:30 Active Medications Acetaminophen (Tylenol -) 650 mg PO Q4H PRN PRN Reason: PAIN LEVEL 1-5 Last Admin: 04/18/18 23:37 Dose: 650 mg Albuterol/Ipratropium (Duoneb -) 1 amp NEB RQID [facility] Last Admin: 04/20/18 11:48 Dose: 1 amp Albuterol/Ipratropium (Duoneb -) 1 amp NEB Q4H PRN PRN Reason: SHORT OF BREATH/WHEEZING Last Admin: 04/17/18 03:01 Dose: 1 amp Docusate Sodium (Colace -) 200 mg PO BID [facility] Last Admin: 04/20/18 10:24 Dose: 200 mg Furosemide (Lasix -) 40 mg PO BIDLASIX [facility] Last Admin: 04/20/18 06:53 Dose: 40 mg Guaifenesin (Guaifenesin Dm Syrup) 10 ml PO Q4H PRN PRN Reason: COUGH Last Admin: 04/20/18 09:12 Dose: 10 ml Insulin Aspart (Novolog Vial Sliding Scale -) 1 vial SQ ACHS [facility]; Protocol Last Admin: 04/20/18 11:41 Dose: 3 units Methylprednisolone Sodium Succinate (Solu-Medrol -) 40 mg IVPUSH BID [facility] Last Admin: 04/20/18 10:24 Dose: 40 mg Montelukast Sodium (Singulair -) 10 mg PO HS [facility] Last Admin: 04/19/18 23:22 Dose: 10 mg Polyethylene Glycol (Miralax (For Daily Use) -) 17 gm PO DAILY [facility] Last Admin: 04/20/18 10:24 Dose: 17 gm Sitagliptin Phosphate (Januvia -) 50 mg PO DAILY@0700 [facility] Last Admin: 04/20/18 06:53 Dose: 50 mg A/P Cough r/o Acute COPD Exacerbation Pulmonary HTN HTN Hypothyroidism Dementia - can likely change steroids to PO in AM and taper as outpt - inhaled bronchodilators - O2 to keep SpO2 >90% - will need outpt PFTs - DVT prophylaxis Problem List - Problems (1) COPD exacerbation Code(s): J44.1 - CHRONIC OBSTRUCTIVE PULMONARY DISEASE W (ACUTE) EXACERBATION (2) Cough Code(s): R05 - COUGH (3) HTN (hypertension) Code(s): I10 - ESSENTIAL (PRIMARY) HYPERTENSION (4) Hypothyroidism Code(s): E03.9 - HYPOTHYROIDISM, UNSPECIFIED
[2018-04-20] MEDS ORDERED: INSULIN (NOVOLOG) ASPART 100 UNITS/ML 10ML VIAL ONE (17:38)
[2018-04-20] MEDS: MONTELUKAST NA 10 MG TABLET PO SCH (22:48)
[2018-04-21] MEDS: FUROSEMIDE 40 MG TABLET (FP) PO SCH ×2 (06:47→15:03)
[2018-04-21] MEDS: INSULIN SLIDING SCALE (NOVOLOG) 1 VIAL SQ SCH ×4 (06:47→21:48)
[2018-04-21] MEDS: sitaGLIPtin PHOSPHATE 50 MG TABLET PO SCH (06:47)
[2018-04-21] MEDS: ALBUTEROL SO4 2.5/IPRATROPIUM 0.5 INH SOL 3 ML VIAL.NEB. NEB SCH ×4 (07:30→20:28)
[2018-04-21] MEDS: guaiFENesin/D-METHORPHAN HB 5 ML UNIT-DOSE CUPS PO PRN ×2 (07:52→11:56)
[2018-04-21] MEDS ORDERED: PT OWN MED DRAWER 7, Y5N ONE (09:05)
[2018-04-21] MEDS: DOCUSATE SODIUM 100 MG CAPSULE (FP) PO SCH ×2 (09:23→21:47)
[2018-04-21] MEDS: methylPREDNISolone NA SUCC 40 MG/1 ML VIAL IVPUSH SCH ×2 (09:23→21:48)
[2018-04-21] MEDS: POLYETHYLENE GLYCOL 3350 119 GM BTL PO SCH (09:26)
--- NOTE | 2018-04-21 12:55 | PN ---
Progress Note (short form) - Note Progress Note: Breathing is a little better, but not at her baseline. Still with productive cough. No acute events overnight. Intake & Output 04/18/18 04/19/18 04/20/18 04/21/18 23:59 23:59 23:59 23:59 Intake Total 1800 600 600 760 Balance 1800 600 600 760 Weight 216 lb 215 lb 14.4 oz 212 lb 209 lb 9.6 oz Last Vital Signs Temp Pulse Resp BP Pulse Ox 97.1 F L 70 20 125/54 L 93 L 04/21/18 09:00 04/21/18 09:00 04/21/18 09:00 04/21/18 09:00 04/21/18 09:00 Active Medications Acetaminophen (Tylenol -) 650 mg PO Q4H PRN PRN Reason: PAIN LEVEL 1-5 Last Admin: 04/18/18 23:37 Dose: 650 mg Albuterol Sulfate (Ventolin 0.083% Nebulizer Soln -) 1 amp NEB Q4H PRN PRN Reason: SHORT OF BREATH/WHEEZING Albuterol/Ipratropium (Duoneb -) 1 amp NEB RQID [facility] Last Admin: 04/21/18 11:25 Dose: 1 amp Docusate Sodium (Colace -) 200 mg PO BID [facility] Last Admin: 04/21/18 09:23 Dose: 200 mg Furosemide (Lasix -) 40 mg PO BIDLASIX [facility] Last Admin: 04/21/18 06:47 Dose: 40 mg Guaifenesin (Guaifenesin Dm Syrup) 10 ml PO Q4H PRN PRN Reason: COUGH Last Admin: 04/21/18 11:56 Dose: 10 ml Insulin Aspart (Novolog Vial Sliding Scale -) 1 vial SQ ACHS [facility]; Protocol Last Admin: 04/21/18 12:04 Dose: 5 units Methylprednisolone Sodium Succinate (Solu-Medrol -) 40 mg IVPUSH BID [facility] Last Admin: 04/21/18 09:23 Dose: 40 mg Montelukast Sodium (Singulair -) 10 mg PO HS [facility] Last Admin: 04/20/18 22:48 Dose: 10 mg Polyethylene Glycol (Miralax (For Daily Use) -) 17 gm PO DAILY [facility] Last Admin: 04/21/18 09:26 Dose: Not Given Sitagliptin Phosphate (Januvia -) 50 mg PO DAILY@0700 [facility] Last Admin: 04/21/18 06:47 Dose: 50 mg Gen: NAD at rest Heart: RRR Lung: Bilateral scattered rhonchi Abd: soft, nontender Ext: no edema Laboratory Results - last 24 hr 04/20/18 04/20/18 04/21/18 17:17 23:34 06:45 POC Glucometer 265 167 217 04/21/18 12:03 POC Glucometer 201 Problem List - Problems (1) COPD exacerbation Code(s): J44.1 - CHRONIC OBSTRUCTIVE PULMONARY DISEASE W (ACUTE) EXACERBATION (2) Cough Code(s): R05 - COUGH (3) HTN (hypertension) Code(s): I10 - ESSENTIAL (PRIMARY) HYPERTENSION (4) Hypothyroidism Code(s): E03.9 - HYPOTHYROIDISM, UNSPECIFIED A/P Cough r/o Acute COPD Exacerbation Pulmonary HTN HTN Hypothyroidism Dementia - Same dose of IV Steroids and can hopefully change to PO in AM and taper as outpatient - inhaled bronchodilators - O2 to keep SpO2 >90% - will need outpt PFTs - DVT prophylaxis Dr Coombs
[2018-04-21] MEDS: guaiFENesin 600 MG TABLET.ER (FP) PO SCH (21:47)
[2018-04-21] MEDS: MONTELUKAST NA 10 MG TABLET PO SCH (21:47)
[2018-04-22] MEDS: FUROSEMIDE 40 MG TABLET (FP) PO SCH ×2 (06:56→14:20)
[2018-04-22] MEDS: INSULIN SLIDING SCALE (NOVOLOG) 1 VIAL SQ SCH ×2 (06:56→12:12)
[2018-04-22] MEDS: sitaGLIPtin PHOSPHATE 50 MG TABLET PO SCH (06:56)
[2018-04-22] MEDS: ALBUTEROL SO4 2.5/IPRATROPIUM 0.5 INH SOL 3 ML VIAL.NEB. NEB SCH ×2 (08:32→12:09)
--- NOTE | 2018-04-22 10:22 | PN ---
Progress Note (short form) - Note Progress Note: seen and examined persitent cough breathing improved per patient Vital Signs Period Temp Pulse Resp BP Sys/Fox Pulse Ox Last 24 Hr 97.6 F-98.5 F 65-81 20-22 118-146/58-77 92 obese female no distress heart s1/s2 lungs occ exp wheezing abd obese ext no edema CBC, BMP 04/20/18 07:30 04/20/18 07:30 Hgb = 8.2 Acetaminophen (Tylenol -) 650 mg PO Q4H PRN PRN Reason: PAIN LEVEL 1-5 Last Admin: 04/18/18 23:37 Dose: 650 mg Albuterol/Ipratropium (Duoneb -) 1 amp NEB RQID [facility] Last Admin: 04/20/18 11:48 Dose: 1 amp Albuterol/Ipratropium (Duoneb -) 1 amp NEB Q4H PRN PRN Reason: SHORT OF BREATH/WHEEZING Last Admin: 04/17/18 03:01 Dose: 1 amp Docusate Sodium (Colace -) 200 mg PO BID [facility] Last Admin: 04/20/18 10:24 Dose: 200 mg Furosemide (Lasix -) 40 mg PO BIDLASIX [facility] Last Admin: 04/20/18 06:53 Dose: 40 mg Guaifenesin (Guaifenesin Dm Syrup) 10 ml PO Q4H PRN PRN Reason: COUGH Last Admin: 04/20/18 09:12 Dose: 10 ml Insulin Aspart (Novolog Vial Sliding Scale -) 1 vial SQ ACHS [facility]; Protocol Last Admin: 04/20/18 11:41 Dose: 3 units Methylprednisolone Sodium Succinate (Solu-Medrol -) 40 mg IVPUSH BID [facility] Last Admin: 04/20/18 10:24 Dose: 40 mg Montelukast Sodium (Singulair -) 10 mg PO HS [facility] Last Admin: 04/19/18 23:22 Dose: 10 mg Polyethylene Glycol (Miralax (For Daily Use) -) 17 gm PO DAILY [facility] Last Admin: 04/20/18 10:24 Dose: 17 gm Sitagliptin Phosphate (Januvia -) 50 mg PO DAILY@0700 [facility] Last Admin: 04/20/18 06:53 Dose: 50 mg Assmt Cough r/o Acute COPD Exacerbation Pulmonary HTN new onset DM exacerbated by steroids HTN Hypothyroidism Dementia obesity Plan - started on Januvia added sliding scale - change steroids to PO in AM and taper as outpt - inhaled bronchodilators - O2 to keep SpO2 >90% - will need outpt follow up with pulmonary - arrange for STR at time of d/c Problem List - Problems (1) Diabetes mellitus type 2 in obese Assessment/Plan: new onset HgA1C diabetic diet diabetic education DM exacerbated by Steroids Code(s): E11.69 - TYPE 2 DIABETES MELLITUS WITH OTHER SPECIFIED COMPLICATION; E66.9 - OBESITY, UNSPECIFIED (2) Hypoxia Code(s): R09.02 - HYPOXEMIA (3) Shortness of breath Code(s): R06.02 - SHORTNESS OF BREATH (4) COPD exacerbation Code(s): J44.1 - CHRONIC OBSTRUCTIVE PULMONARY DISEASE W (ACUTE) EXACERBATION (5) Cough Code(s): R05 - COUGH (6) HTN (hypertension) Code(s): I10 - ESSENTIAL (PRIMARY) HYPERTENSION (7) Hypothyroidism Code(s): E03.9 - HYPOTHYROIDISM, UNSPECIFIED
[2018-04-22] MEDS: methylPREDNISolone NA SUCC 40 MG/1 ML VIAL IVPUSH SCH (10:57)
[2018-04-22] MEDS: guaiFENesin 600 MG TABLET.ER (FP) PO SCH (10:57)
[2018-04-22] MEDS: DOCUSATE SODIUM 100 MG CAPSULE (FP) PO SCH (10:57)
--- NOTE | 2018-04-22 11:00 | PN ---
Progress Note (short form) - Note Progress Note: seen and examined persitent cough breathing improved per patient discussed with patient and developmental services worker present her DX DM and diet changes she needs to make she keeps saying "she is not a diabetic" Vital Signs Period Temp Pulse Resp BP Sys/Fox Pulse Ox Last 24 Hr 97.6 F-98.5 F 65-81 20-22 118-146/58-77 92 persistent cough obese female no distress heart s1/s2 lungs occ exp wheezing abd obese ext no edema CBC, BMP 04/20/18 07:30 04/20/18 07:30 Hgb = 8.2 Active Medications Acetaminophen (Tylenol -) 650 mg PO Q4H PRN PRN Reason: PAIN LEVEL 1-5 Last Admin: 04/18/18 23:37 Dose: 650 mg Albuterol Sulfate (Ventolin 0.083% Nebulizer Soln -) 1 amp NEB Q4H PRN PRN Reason: SHORT OF BREATH/WHEEZING Albuterol/Ipratropium (Duoneb -) 1 amp NEB RQID [facility] Last Admin: 04/22/18 08:32 Dose: 1 amp Docusate Sodium (Colace -) 200 mg PO BID [facility] Last Admin: 04/22/18 10:57 Dose: 200 mg Furosemide (Lasix -) 40 mg PO BIDLASIX [facility] Last Admin: 04/22/18 06:56 Dose: 40 mg Guaifenesin (Guaifenesin Dm Syrup) 10 ml PO Q4H PRN PRN Reason: COUGH Last Admin: 04/21/18 11:56 Dose: 10 ml Guaifenesin (Mucinex -) 1,200 mg PO BID [facility] Last Admin: 04/22/18 10:57 Dose: 1,200 mg Insulin Aspart (Novolog Vial Sliding Scale -) 1 vial SQ ACHS [facility]; Protocol Last Admin: 04/22/18 06:56 Dose: 5 units Methylprednisolone Sodium Succinate (Solu-Medrol -) 40 mg IVPUSH BID [facility] Last Admin: 04/22/18 10:57 Dose: 40 mg Montelukast Sodium (Singulair -) 10 mg PO HS [facility] Last Admin: 04/21/18 21:47 Dose: 10 mg Polyethylene Glycol (Miralax (For Daily Use) -) 17 gm PO DAILY [facility] Last Admin: 04/21/18 09:26 Dose: Not Given Sitagliptin Phosphate (Januvia -) 50 mg PO DAILY@0700 [facility] Last Admin: 04/22/18 06:56 Dose: 50 mg Assmt new onset DM exacerbated by steroids -- hgb A1C 8.2 Cough r/o Acute COPD Exacerbation Pulmonary HTN HTN Hypothyroidism Dementia obesity Plan - Januvia and sliding scale / adherance to diabetic diet - change steroids to PO in AM and taper as outpt - inhaled bronchodilators - O2 to keep SpO2 >90% - will need outpt follow up with pulmonary - arrange for STR at time of d/c
--- NOTE | 2018-04-22 11:02 | DS ---
Physical Examination Vital Signs: Vital Signs Temperature 97.6 F 04/22/18 06:00 Pulse Rate 65 04/22/18 06:00 Respiratory Rate 22 H 04/22/18 06:00 Blood Pressure 118/70 04/22/18 06:00 O2 Sat by Pulse Oximetry (%) 92 L 04/21/18 21:00 Findings/Remarks: 82-year-old female, with a PMH of HTN, diverticulitis, dementia with aggressive behavior, hypothyroidism, cardiomyopathy, and depression, who presents to the ED chest pain/ shortness of breath x1 week. She is followed by Dr. Marcello Parikh and was seen in his office 2 days ago-- Saturday04/14/18, no changes made and set for follow up in 4 months. Patient has been in ER 3 times in the last 10 days -- ER work up has been negative except for baseline COPD. She has dementia so hx is limited and not consistent. I have discussed care with daughter Yeimi and sister in law Raysa Phillips. The patient reports inc SOB with any activity / report chest pain but denies diaphoresis / pain radiation , and is unclear what precipitates or alleviates the pain. She was recently admitted to [facility] (2 weeks ago) for COPD exacerbation. Earlier in the summer was admitted to [facility] in February 2018 for similar symptoms and viral URI. She resides at [address] [place] [address] in the assisted living floors. HPI is limited due to dementia. She was treated with low dose steroids / expectorant and nebulizer / she was noted to have persistent elevated Blood sugar - HgA1c - 8.2 and had risk factor for DM. Patient was informed multiple time about diagnosis of Diabetes and need for adherence to diet. Filtration Operator spoke to her again day of discharge and provided paperwork on how to manage DM and steps she should follow. She has been changed to Diabetic diet and januvia has been added to her medications. Will also add metformin to her regimen. She is also on sliding scale. Patient to be transfered to [facility] for STR -- assist with management of COPD / DM / weight reduction Assmt new onset DM exacerbated by steroids -- hgb A1C 8.2 Cough r/o Acute COPD Exacerbation Pulmonary HTN HTN Hypothyroidism Dementia obesity Plan - Januvia and sliding scale / adherance to diabetic diet - change steroids to PO in AM and taper as outpt - inhaled bronchodilators - O2 to keep SpO2 >90% - will need outpt follow up with pulmonary - arrange for STR at time of d/c Constitutional: Yes: Well Nourished, No Distress, Obese Eyes: Yes: Conjunctiva Clear, EOM Intact HENT: Yes: Atraumatic, Normocephalic Neck: Yes: Supple, Trachea Midline Cardiovascular: Yes: Regular Rate and Rhythm Respiratory: Yes: CTA Bilaterally, SOB on Exertion Gastrointestinal: Yes: Normal Bowel Sounds, Soft, Abdomen, Obese ...Rectal Exam: Yes: Deferred Renal/: Yes: WNL Musculoskeletal: Yes: Muscle Weakness, Other (deconditioning) Extremities: Yes: WNL Edema: No Peripheral Pulses WNL: Yes Integumentary: Yes: WNL Neurological: Yes: Alert, Oriented, Pre-Existing Deficit Psychiatric: Yes: Alert, Oriented Labs: CBC, BMP 04/20/18 07:30 04/20/18 07:30 Discharge Summary Reason For Visit: Shortness of Breath, CHEST PAIN Current Active Problems Chest pain (Acute) Hypoxia (Acute) Shortness of breath (Acute) Condition: Improved - Instructions Referrals: Alondra Vidal MD [Primary Care Provider] - Disposition: INTERMEDIATE FACILITY - Home Medications Comprehensive Discharge Medication List: Ambulatory Orders Acetaminophen 650 mg PO QID PRN 04/16/18 Albuterol 2.5/Ipratropium 0.5 [Duoneb -] 1 neb NEB Q4H PRN 04/16/18 Albuterol Sulfate [Proventil HFA Inhaler -] 1 - 2 inh PO QID PRN 04/16/18 Comp.stocking,Thigh,Long,Small [T.e.d. Anti-Embolism Stocking] 1 each MC DAILY 04/16/18 Furosemide 40 mg PO BID 04/16/18 Ibuprofen [Advil -] 200 mg PO DAILY 04/16/18 Ipratropium/Albuterol Sulfate [Iprat-Albut 0.5-3(2.5) mg/3 ml] 3 ml IH BID 04/16 Levothyroxine [Synthroid -] 50 mcg PO DAILY 04/16/18 Mirabegron [Myrbetriq] 25 mg PO DAILY 04/16/18 Mirtazapine 7.5 mg PO HS 04/16/18 Montelukast Na [Singulair -] 10 mg PO HS 04/16/18 Multivit,Tx with Iron,Minerals [Newcjfzb-M-B with Minerals] 1 each PO DAILY Jan[facility] 50 mg q day Metformin 500 mg BID
[2018-04-22] MEDS: POLYETHYLENE GLYCOL 3350 119 GM BTL PO SCH (11:15)
[2018-04-22 11:18] VITALS: TEMP 98.2
[2018-04-22 11:54] VITALS: BMI 34.2
[2018-04-22 15:19] VITALS: BP 129/88; PULSE 83
[2018-04-22] MEDS ORDERED: metFORMIN HCL 500 MG TABLET (FP) PO SCH (16:30)
== END 2018-04-22 15:35 | DRG 191 ==
LOC: JER 11:46 → JERBED 16:02 → OBSVTOIN 16:35 → J5S 21:16
PROVIDERS: ADMIT Family Medicine; ATTEND Family Medicine
DX: J44.1 Chronic obstructive pulmonary disease with (acute) exacerbation (principal); I42.9 Cardiomyopathy, unspecified; F03.91 Unspecified dementia, unspecified severity, with behavioral disturbance; I27.20 Pulmonary hypertension, unspecified; I10 Essential (primary) hypertension; E03.9 Hypothyroidism, unspecified; E66.9 Obesity, unspecified; Z68.34 Body mass index [BMI] 34.0-34.9, adult; R07.9 Chest pain, unspecified; E11.9 Type 2 diabetes mellitus without complications; R05 Cough
CPT/HCPCS: 36415; 71045-TC-FY; 80048; 80053; 80061; 82803; 82962; 83036; 83721; 83735; 84484; 85025; 85610; 85730; 93005; 93010; 94640; 97116-GP; 97161-GP; 99285-25; G0378; J7620

== ENCOUNTER 2018-05-09 12:39 | Inpatient (IN) | payer OTHER, BC ==
--- NOTE | 2018-05-09 12:47 | PDOC ---
History of Present Illness - General Stated Complaint: Shortness of Breath Time Seen by Provider: 05/09/18 12:47 - History of Present Illness Initial Comments: 82 year old female with PMH of HTN, diverticulitis, dementia with aggressive behavior, hypothyroidism, cardiomyopathy, and depression presenting with worsening shortness of breath and cough over the past three days that was acutely worsened today when she had an episode of weakness and extreme SOB in the lobby or her facility. Denies any syncope or presyncope, but admits that she had a very difficult time breathing during that time earlier today. Denies and recent fevers, chills, constipation, chest pain, headache, nausea, vomiting , diarrhea, or worsening leg swelling. 05/09/18 15:31 Past History - Past Medical History Allergies/Adverse Reactions: Allergies Allergy/AdvReac Type Severity Reaction Status Date / Time amoxicillin Allergy Verified 04/16/18 11:59 chlorhexidine Allergy Verified 04/16/18 11:59 ciprofloxacin [From Cipro] Allergy Verified 04/16/18 11:59 codeine Allergy Verified 04/16/18 11:59 Quinolones Allergy Verified 04/16/18 11:59 Sulfa (Sulfonamide Allergy Verified 04/16/18 11:59 Antibiotics) sulfamethoxazole Allergy Verified 04/16/18 11:59 [From Bactrim] trimethoprim [From Bactrim] Allergy Verified 04/16/18 11:59 Home Medications: Ambulatory Orders Albuterol 2.5/Ipratropium 0.5 [Duoneb -] 1 neb NEB Q4H PRN 04/16/18 Furosemide 40 mg PO BID 04/16/18 Levothyroxine [Synthroid -] 50 mcg PO DAILY 04/16/18 Mirabegron [Myrbetriq] 25 mg PO DAILY 04/16/18 Mirtazapine 7.5 mg PO HS 04/16/18 Multivit,Tx with Iron,Minerals [[id number] with Minerals] 1 each PO DAILY Polyethylene Glycol 3350 [Miralax 119 gm Btl -] 17 gm PO DAILY bottle 04/22/18 Sitagliptin Phosphate [Januvia -] 50 mg PO DAILY@0700 30 Days #30 tablet metFORMIN HCL [Glucophage -] 500 mg PO BID@0700,1630 30 Days #60 tablet Divalproex [Depakote -] 125 mg PO BID 05/09/18 Potassium Chloride 20 meq PO DAILY 05/09/18 Anemia: No Asthma: No Cancer: No Cardiac Disorders: No COPD: Yes CHF: Yes Dementia: Yes Diabetes: No GI Disorders: Yes (diverticulitis) Disorders: No HTN: Yes Hypercholesterolemia: No Liver Disease: No Psychiatric Problems: Yes (depression) Seizures: No Thyroid Disease: No - Surgical History Abdominal Surgery: No Appendectomy: No Cardiac Surgery: No Cholecystectomy: No Lung Surgery: No Neurologic Surgery: No Orthopedic Surgery: Yes (bilat knee replacement) - Suicide/Smoking/Psychosocial Hx Smoking History: Never smoked Have you smoked in the past 12 months: No Hx Alcohol Use: No Drug/Substance Use Hx: No Substance Use Type: None Hx Substance Use Treatment: No Review of Systems - Review of Systems Constitutional: No: Diaphoresis, Fever HEENTM: No: Blurred Vision, Tearing Respiratory: Yes: Cough, Shortness of Breath. No: Orthopnea, Productive cough Cardiac (ROS): No: Edema, Irregular Heart Rate ABD/GI: No: Constipated, Diarrhea : No: Burning, Dysuria, Discharge Musculoskeletal: No: Back Pain, Gout, Joint Pain, Muscle Weakness Integumentary: No: Bruising, Erythema, Lesions Neurological: No: Headache, Numbness, Paresthesia Psychiatric: Yes: Anxiety Endocrine: No: Intolerance to Cold, Intolerance to Heat Hematologic/Lymphatic: No: Anemia, Blood Clots, Easy Bleeding *Physical Exam - Physical Exam General Appearance: Yes: Nourished, Appropriately Dressed. No: Apparent Distress HEENT: positive: EOMI, IZAIAH, Normal ENT Inspection, Normal Voice Neck: positive: Trachea midline, Normal Thyroid, Supple. negative: Tender, Rigid Respiratory/Chest: positive: Respiratory Distress (Mild respiratory distress). negative: Chest Tender, Lungs Clear, Normal Breath Sounds (constricted lungs bilaterally with delayed expiratory phase) Cardiovascular: positive: Regular Rhythm, Regular Rate Gastrointestinal/Abdominal: positive: Normal Bowel Sounds, Flat, Soft. negative : Tender Lymphatic: negative: Adenopathy, Tenderness Musculoskeletal: positive: Normal Inspection. negative: Decreased Range of Motion Extremity: positive: Normal Capillary Refill, Normal Inspection, Normal Range of Motion. negative: Tender Integumentary: positive: Normal Color, Dry, Warm Neurologic: positive: cardiac cath tech II-XII NML intact, Fully Oriented, Alert, Normal Mood/ Affect, Normal Response, Motor Strength 11/23 ED Treatment Course - LABORATORY CBC & Chemistry Diagram: 05/09/18 14:18 05/09/18 14:18 Medical Decision Making - Medical Decision Making 82 year old female with what appears to be a temporary clinical diagnosis of COPD presenting with acute episode of shortness of breath. Patient was in mild respiratory distress on presentation but this quickly resolved after duonebs x3 and steroids. Labs WNL and CXR clear. We discussed the case the Dr. Vidal and she did not feel that the patient needed to be admitted because she hasn't been using her nebulizers at [facility] with any appropriate frequency. We would agree with this plan but despite steroids, duonebs x3, and albuterol x2, the patient was still hypoxic to low 80s on RA while in bed. Patient appears to have a new oxygen requirement and should be brought in for at least an observational stay. 05/09/18 15:46 *DC/Admit/Observation/Transfer Diagnosis at time of Disposition: COPD exacerbation - Discharge Dispostion Condition at time of disposition: Stable Decision to Admit order: Yes - Referrals Referrals: Alondra Vidal MD [Primary Care Provider] - - Patient Instructions - Post Discharge Activity
[2018-05-09 13:00] VITALS: BMI 32.3
[2018-05-09] MEDS ORDERED: ALBUTEROL SO4 2.5/IPRATROPIUM 0.5 INH SOL 3 ML VIAL.NEB. NEB ONE ×2 (13:24→14:09)
[2018-05-09] MEDS: ALBUTEROL SO4 2.5/IPRATROPIUM 0.5 INH SOL 3 ML VIAL.NEB. NEB SCH ×4 (13:33→14:19)
--- NOTE | 2018-05-09 14:21 | PDOC ---
Attending Attestation - HPI HPI: 05/09/18 16:45 The patient is a 82 year old female( from [facility]) with a significant PMH of hypertension, diverticulitis, dementia, hypothyroidism, cardiomyopathy, and depression who presents to the emergency department with shortness of breath for about 3 days. The patient reports that she was going down stairs at home when she began to experience and increased episode of shortness of breath. She reports some associated cough with green colored sputum . she states that she took a nebulizer with some relief before experiencing her shortness of breath again shortly after. The patient also endorses some weakness and chest pain. She denies any other symptoms. She denies any fever, chills, nausea, vomiting, diarrhea, constipation, or urinary symptoms. She denies any headache or dizziness. The patient denies any other complaints. PCP: Dr. Vidal Documentation prepared by Sachi Moeller, acting as medical transcription for Zeyad Leon MD. <Sachi Moeller - Last Filed: 05/09/18 16:54> - Medical Decision Making 05/09/18 21:20 Pt needs to have urine sent for eval of UA. 05/10/18 20:09 Pt is admitted however uncomfortable and unweildy during the night. I gave her 2mg ativan to calm her and help her to sleep. She remained stale with 2L NC <Brunilda Santos - Last Filed: 05/10/18 20:09> - Resident Resident Name: Sola Bronson - ED Attending Attestation I have performed the following: I have examined & evaluated the patient, The case was reviewed & discussed with the resident, I agree w/resident's findings & plan, Exceptions are as noted - Physicial Exam PE: 05/09/18 16:00 GENERAL: The patient is awake, alert, Nontoxic - in no acute distress. HEAD: Normocephalic, atraumatic. LUNGS:rhonchorous breath sounds with mild wheezing HEART: Regular rate and rhythm, normal S1 and S2 without murmur, rub or gallop. ABDOMEN: Soft, nontender, . No guarding, no rebound. . No CVA tenderness EXTREMITIES: Normal range of motion, +LE edema. NEUROLOGICAL: No facial assymetry, Normal speech, PSYCH: Normal mood, normal affect. SKIN: Warm, Dry, normal turgor, - Medical Decision Making 05/09/18 14:21 82y F hx of HTN, diverticulitis, dementia, hypothyroidism, cardiomyopathy, and depression presents with complaint of sob x 2-3 days. +cough productive of green sputum w/o fever/chills, n/v, cp, diarrhea, headache, focal weakness 05/09/18 19:09 pt hypoxic will admit to obs for furthre management of copd 05/13/18 07:54 A portion of this note was documented by scribe services under my direction. I have reviewed the details of the note, within reason, and agree with the documentation with the following case summary and management plan written by me <Zeyad Leon - Last Filed: 05/13/18 07:54> Heart Score/ECG Review - ECG Impressions Comment:: 05/09/18 19:09 Twelve-lead EKG was performed and reviewed by me. There is normal sinus rhythm with a normal rate. Rate of 83 Left anterior fascicular block, LVH <Zeyad Leon - Last Filed: 05/13/18 07:54>
[2018-05-09] MEDS ORDERED: predniSONE 20 MG TABLET (UD) PO ONE (14:25)
[2018-05-09 14:27] LABS: EOS % 6.6 % (0-4.5); HEMATOCRIT 36.2 % (32.4-45.2); HEMOGLOBIN 11.8 GM/dL (10.7-15.3); LYMPH % 17.7 % (8-40); MCH 32.1 pg (25.7-33.7); MCHC 32.7 g/dl (32.0-36.0); MEAN CELL VOLUME 98.1 fl (80-96); MEAN PLT VOLUME 8.2 fl (7.5-11.1); MONO % 13.1 % (3.8-10.2); NEUT % 61.6 % (42.8-82.8); PLATELET COUNT 226 K/MM3 (134-434); RBC 3.69 M/mm3 (3.60-5.2); RDW 15.5 % (11.6-15.6); WHITE BLOOD COUNT 5.1 K/mm3 (4.0-10.0)
[2018-05-09] MEDS ORDERED: predniSONE 20 MG TABLET (UD) ONE (14:37)
[2018-05-09 15:01] LABS: ALBUMIN 3.3 g/dl (3.4-5.0); ALK PHOS 56 U/L (45-117); ANION GAP 4 MMOL/L (8-16); BILIRUBIN,TOTAL 0.8 mg/dL (0.2-1); BLOOD UREA NITROGEN 17 mg/dL (7-18); CALCIUM 9.6 mg/dL (8.5-10.1); CHLORIDE 101 mmol/L (98-107); CO2 34 mmol/L (21-32); CREATININE 1.1 mg/dL (0.55-1.3); GLUCOSE,RANDOM 108 mg/dL (74-106); N-TERMINAL BNP 548.1 pg/ml (5-450); SGOT/AST 20 U/L (15-37); SGPT/ALT 21 U/L (13-61); SODIUM 139 mmol/L (136-145); TOT PROT 6.7 g/dl (6.4-8.2)
[2018-05-09 15:41] LABS: INR 0.97 (0.83-1.09); PROTHROMBIN TIME (PATIENT) 11.4 SEC (9.7-13.0)
[2018-05-09] MEDS ORDERED: ALBUTEROL SO4 0.083% IH SOL 2.5 MG/3 ML VIAL.NEB. NEB ONE ×2 (16:17→16:26)
[2018-05-09] MEDS ORDERED: ACETAMINOPHEN INJECTION 100 ML IVPB ONE (16:26)
[2018-05-09] MEDS ORDERED: FUROSEMIDE 40 MG/4 ML INJECTABLE VIAL IVPUSH ONE (17:32)
[2018-05-09] MEDS ORDERED: FUROSEMIDE 40 MG/4 ML INJECTABLE VIAL ONE (19:13)
[2018-05-09] MEDS ORDERED: ACETAMINOPHEN 325 MG TABLET (FP) PO PRN (23:57)
--- NOTE | 2018-05-10 00:12 | HP ---
Admitting History and Physical - Admission Chief Complaint: shortness of breath History of Present Illness: 82 y/o female with PHX of COPD /CHF/ dementia / DiabetesII/ HTN / hypothyroid / obesity has had multiple ER visits and short admissions for exacerbation of COPD / CHF. Resides at assisted living facility and is known to be non compliant with diet and at times medication. She was seen this week 3 times at [facility] ER where she was treated and released -- she declined admission, or at the time was found to be stable and sent back to [place]. ( she was in ER saturday night ). Today she presents with c/o of chest tightness and SOB. She reports occurs while walking down stairs , Kali does not do the stairs at [place], as she ambulates with walker and uses elevators. She denies fever and chills. I contacted staff at the facility -- reports no hx of fever / chills / productive cough. 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 Cardiovascular: Yes: CAD, CHF, HTN Pulmonary: Yes: COPD Renal/: Yes: Renal Inusuff Psych: Yes: Anxiety, Psychosis - Past Surgical History Past Surgical History: Yes: None - Smoking History Smoking history: Never smoked Have you smoked in the past 12 months: No - Alcohol/Substance Use Hx Alcohol Use: No - Social History Usual Living Arrangement: Yes: Assisted Living ADL: Support Services History of Recent Travel: No Home Medications - Allergies Allergies/Adverse Reactions: Allergies Allergy/AdvReac Type Severity Reaction Status Date / Time amoxicillin Allergy Verified 04/16/18 11:59 chlorhexidine Allergy Verified 04/16/18 11:59 ciprofloxacin [From Cipro] Allergy Verified 04/16/18 11:59 codeine Allergy Verified 04/16/18 11:59 Quinolones Allergy Verified 04/16/18 11:59 Sulfa (Sulfonamide Allergy Verified 04/16/18 11:59 Antibiotics) sulfamethoxazole Allergy Verified 04/16/18 11:59 [From Bactrim] trimethoprim [From Bactrim] Allergy Verified 04/16/18 11:59 - Home Medications Home Medications: Ambulatory Orders Albuterol 2.5/Ipratropium 0.5 [Duoneb -] 1 neb NEB Q4H PRN 04/16/18 Furosemide 40 mg PO BID 04/16/18 Levothyroxine [Synthroid -] 50 mcg PO DAILY 04/16/18 Mirabegron [Myrbetriq] 25 mg PO DAILY 04/16/18 Mirtazapine 7.5 mg PO HS 04/16/18 Multivit,Tx with Iron,Minerals [Ybslmqwj-[id number]-U with Minerals] 1 each PO DAILY Polyethylene Glycol 3350 [Miralax 119 gm Btl -] 17 gm PO DAILY bottle 04/22/18 Sitagliptin Phosphate [Januvia -] 50 mg PO DAILY@0700 30 Days #30 tablet metFORMIN HCL [Glucophage -] 500 mg PO BID@0700,1630 30 Days #60 tablet Divalproex [Depakote -] 125 mg PO BID 05/09/18 Potassium Chloride 20 meq PO DAILY 05/09/18 Review of Systems - Review of Systems Constitutional: denies: Chills, Fever, Lethargy, Night Sweats, Weakness Eyes: reports: No Symptoms HENT: reports: No Symptoms Neck: reports: No Symptoms Cardiovascular: reports: Chest Pain, Shortness of Breath Respiratory: reports: Cough, Exercise Intolerance, SOB, SOB on Exertion Gastrointestinal: reports: No Symptoms Genitourinary: reports: No Symptoms Breasts: reports: No Symptoms Reported Musculoskeletal: reports: No Symptoms Integumentary: reports: No Symptoms Neurological: reports: Pre-Existing Deficit Endocrine: reports: No Symptoms Hematology/Lymphatic: reports: No Symptoms Psychiatric: reports: No Symptoms Physical Examination Vital Signs: Vital Signs Temperature 99.0 F 05/09/18 16:25 Pulse Rate 100 H 05/09/18 16:25 Respiratory Rate 22 H 05/09/18 16:25 Blood Pressure 128/57 L 05/09/18 16:25 O2 Sat by Pulse Oximetry (%) 95 05/09/18 16:25 Constitutional: Yes: Well Nourished, No Distress, Anxious, Obese. No: Moderate Distress, Severe Distress Eyes: Yes: Conjunctiva Clear, EOM Intact HENT: Yes: Atraumatic, Normocephalic Neck: Yes: Supple, Trachea Midline Cardiovascular: Yes: Regular Rate and Rhythm Respiratory: Yes: Regular, CTA Bilaterally Gastrointestinal: Yes: Normal Bowel Sounds, Soft, Abdomen, Obese ...Rectal Exam: Yes: Deferred Renal/: Yes: WNL Breast(s): Yes: WNL Musculoskeletal: Yes: WNL Extremities: Yes: WNL. No: Calf Tenderness, Cool, Cyanosis, Deformity Edema: No Peripheral Pulses WNL: Yes Integumentary: Yes: WNL Wound/Incision: Yes: Clean/Dry Neurological: Yes: Confusion, Pre-Existing Deficit Psychiatric: Yes: Alert Labs: CBC, BMP 05/09/18 14:18 05/09/18 14:18 Problem List - Problems (1) Hypoxia Code(s): R09.02 - HYPOXEMIA (2) Shortness of breath Code(s): R06.02 - SHORTNESS OF BREATH (3) Cardiomegaly Code(s): I51.7 - CARDIOMEGALY (4) Chest pain Code(s): R07.9 - CHEST PAIN, UNSPECIFIED (5) Diabetes mellitus type 2 in obese Code(s): E11.69 - TYPE 2 DIABETES MELLITUS WITH OTHER SPECIFIED COMPLICATION; E66.9 - OBESITY, UNSPECIFIED (6) HTN (hypertension) Code(s): I10 - ESSENTIAL (PRIMARY) HYPERTENSION (7) Hypothyroidism Code(s): E03.9 - HYPOTHYROIDISM, UNSPECIFIED (8) Cough Code(s): R05 - COUGH Assessment/Plan # COPD steroids -- possible chamge to PO quickly nebulizer / inhaled steroids / singulair known to pulmonary group continue management evaluate for O2 requirement at home has been non compliant with bipap in the past # CHF continue lasix bid trend renal function # Dementia behavioral out burst made worse with use of steroids # DM sliding scale continue out patient medication ADA diet --known to be non complaint with diet w/r DM & CHF # HTN low salt diet continue medications # obesity / deconditioning physical therapy will need assitance once d/c'd
[2018-05-10] MEDS ORDERED: DIVALPROEX SODIUM 125 MG TABLET E.C. ONE (02:41)
[2018-05-10] MEDS ORDERED: methylPREDNISolone NA SUCC 40 MG/1 ML VIAL ONE (02:42)
[2018-05-10] MEDS: DIVALPROEX SODIUM 125 MG TABLET E.C. PO SCH ×3 (02:50→21:56)
[2018-05-10] MEDS: methylPREDNISolone NA SUCC 40 MG/1 ML VIAL IVPUSH SCH ×5 (02:50→19:45)
[2018-05-10] MEDS: ALBUTEROL SO4 2.5/IPRATROPIUM 0.5 INH SOL 3 ML VIAL.NEB. NEB PRN (02:51)
[2018-05-10] MEDS ORDERED: ALBUTEROL SO4 2.5/IPRATROPIUM 0.5 INH SOL 3 ML VIAL.NEB. NEB ONE (02:52)
[2018-05-10] MEDS ORDERED: LORazepam 2 MG/ML SDV VIAL ONE (04:50)
[2018-05-10] MEDS: ALBUTEROL SO4 2.5/IPRATROPIUM 0.5 INH SOL 3 ML VIAL.NEB. NEB SCH ×4 (07:56→20:07)
[2018-05-10] MEDS ORDERED: [UNRECOGNIZED DRUG - OTHER] PO SCH (10:00)
[2018-05-10] MEDS ORDERED: MULTIVIT TX WITH IRON MINERALS PO SCH (10:00)
[2018-05-10] MEDS: LEVOTHYROXINE NA 50 MCG TABLET (FP) PO SCH (11:05)
[2018-05-10] MEDS: metFORMIN HCL 500 MG TABLET (FP) PO SCH ×2 (11:05→16:35)
[2018-05-10] MEDS: sitaGLIPtin PHOSPHATE 50 MG TABLET PO SCH (11:05)
[2018-05-10 11:42] LABS: BASO % 0.6 % (0-2.0); HEMOGLOBIN 10.9 GM/dL (10.7-15.3); LYMPH % 5.8 % (8-40); MCH 31.4 pg (25.7-33.7); MEAN CELL VOLUME 98.2 fl (80-96); MEAN PLT VOLUME 8.2 fl (7.5-11.1); NEUT % 90.6 % (42.8-82.8); PLATELET COUNT 225 K/MM3 (134-434); RBC 3.47 M/mm3 (3.60-5.2); RDW 15.5 % (11.6-15.6)
[2018-05-10] MEDS: MULTIVITAMINS THER W-MINERALS COMBO TABLET (FP) PO SCH (12:00)
[2018-05-10] MEDS: PANTOPRAZOLE 40 MG TABLET (FP) PO SCH (12:00)
[2018-05-10 12:12] LABS: ANION GAP 7 MMOL/L (8-16); BLOOD UREA NITROGEN 26 mg/dL (7-18); CALCIUM 9.2 mg/dL (8.5-10.1); CHLORIDE 104 mmol/L (98-107); CO2 32 mmol/L (21-32); CREATININE 1.2 mg/dL (0.55-1.3); GLUCOSE,RANDOM 226 mg/dL (74-106); POTASSIUM 4.6 mmol/L (3.5-5.1); SODIUM 143 mmol/L (136-145)
[2018-05-10] MEDS: FUROSEMIDE 40 MG/4 ML INJECTABLE VIAL IVPUSH SCH ×2 (16:00→16:33)
[2018-05-10] MEDS: POLYETHYLENE GLYCOL 3350 119 GM BTL PO SCH (16:34)
--- NOTE | 2018-05-10 18:06 | EKG ---
Test Reason : Blood Pressure : / mmHG Vent. Rate : 083 BPM Atrial Rate : 083 BPM P-R Int : 168 ms QRS Dur : 120 ms QT Int : 374 ms P-R-T Axes : 028 -46 083 degrees QTc Int : 439 ms SINUS RHYTHM WITH PREMATURE ATRIAL COMPLEXES LEFT ANTERIOR FASCICULAR BLOCK LEFT VENTRICULAR HYPERTROPHY WITH QRS WIDENING AND REPOLARIZATION ABNORMALITY ABNORMAL ECG WHEN COMPARED WITH ECG OF 16-APR-2018 12:24, PREMATURE ATRIAL COMPLEXES ARE NOW PRESENT Confirmed by BRITTNEY CHAPARRO MD ([id number]) on 05/10/2018 6:06:43 PM Referred By: Confirmed By:BRITTNEY CHAPARRO MD
--- NOTE | 2018-05-10 19:03 | PN ---
Progress Note (short form) - Note Progress Note: patient seen and examined in her room sleeping but arousable confused / wants to go home harsh coughing ( baseline) Vital Signs Period Temp Pulse Resp BP Sys/Fox Pulse Ox Last 24 Hr 97.5 F-99.3 F 83-91 18-24 107-145/52-78 96-96 neck supple heart s1/s2 reg lungs clear bilat no wheezing / no rales / rhonchi abd obese ext no edema CBC, BMP 05/10/18 11:10 05/10/18 11:10 Microbiology 05/09/18 14:31 Blood - Peripheral Venous Blood Culture - Preliminary NO GROWTH OBTAINED AFTER 24 HOURS, INCUBATION TO CONTINUE FOR 4 DAYS. 05/09/18 14:31 Blood - Peripheral Venous Blood Culture - Preliminary NO GROWTH OBTAINED AFTER 24 HOURS, INCUBATION TO CONTINUE FOR 4 DAYS. Active Medications Acetaminophen (Tylenol -) 650 mg PO Q6H PRN PRN Reason: PAIN LEVEL 4 - 6 Albuterol/Ipratropium (Duoneb -) 1 amp NEB RQID [facility] Last Admin: 05/10/18 15:07 Dose: 1 amp Albuterol/Ipratropium (Duoneb -) 1 amp NEB Q4H PRN PRN Reason: SHORTNESS OF BREATH Last Admin: 05/10/18 02:51 Dose: 1 amp Divalproex Sodium (Depakote -) 125 mg PO BID [facility] Last Admin: 05/10/18 16:34 Dose: Not Given Furosemide (Lasix Injection -) 40 mg IVPUSH BID@0600,1400 [facility] Last Admin: 05/10/18 16:33 Dose: 40 mg Levothyroxine Sodium (Synthroid -) 50 mcg PO ACBK [facility] Last Admin: 05/10/18 11:05 Dose: Not Given Metformin HCl (Glucophage -) 500 mg PO BID@0700,1630 [facility] Last Admin: 05/10/18 16:35 Dose: Not Given Methylprednisolone Sodium Succinate (Solu-Medrol -) 40 mg IVPUSH Q8H-IV [facility] Last Admin: 05/10/18 10:00 Dose: 40 mg Mirtazapine (Remeron -) 7.5 mg PO HS [facility] Multivitamins/Minerals (Theragran-M) 1 each PO DAILY [facility] Last Admin: 05/10/18 12:00 Dose: 1 each Pantoprazole Sodium (Protonix -) 40 mg PO DAILY [facility] Last Admin: 05/10/18 12:00 Dose: 40 mg Polyethylene Glycol (Miralax (For Daily Use) -) 17 gm PO DAILY [facility] Last Admin: 05/10/18 16:34 Dose: Not Given Sitagliptin Phosphate (Januvia -) 50 mg PO DAILY@0700 [facility] Last Admin: 05/10/18 11:05 Dose: Not Given # COPD taper steroids -- possible chamge tp PO continue nebulizer / inhaled steroids / singulair # CHF continue lasix bid trend renal function # Dementia behavioral out burst made worse with use of steroids # DM sliding scale continue out patient medication ADA diet # HTN low salt diet continue medications # obesity / deconditioning physical therapy will need assitance once d/c'd possible d/c home in 24-48 hours Problem List - Problems (1) Hypoxia Code(s): R09.02 - HYPOXEMIA (2) Shortness of breath Code(s): R06.02 - SHORTNESS OF BREATH (3) Cardiomegaly Code(s): I51.7 - CARDIOMEGALY (4) Chest pain Code(s): R07.9 - CHEST PAIN, UNSPECIFIED (5) Diabetes mellitus type 2 in obese Code(s): E11.69 - TYPE 2 DIABETES MELLITUS WITH OTHER SPECIFIED COMPLICATION; E66.9 - OBESITY, UNSPECIFIED (6) HTN (hypertension) Code(s): I10 - ESSENTIAL (PRIMARY) HYPERTENSION (7) Hypothyroidism Code(s): E03.9 - HYPOTHYROIDISM, UNSPECIFIED (8) Cough Code(s): R05 - COUGH
[2018-05-10] MEDS: MIRTAZAPINE 15 MG TABLET (FP) PO SCH (21:55)
[2018-05-10] MEDS ORDERED: PATIENT'S OWN MEDICATION (NON-FORMULARY) (Mirtazapine [Mirtazapine] 7.5 MG) PO SCH (22:00)
[2018-05-11] MEDS: methylPREDNISolone NA SUCC 40 MG/1 ML VIAL IVPUSH SCH ×3 (02:12→17:40)
[2018-05-11] MEDS: sitaGLIPtin PHOSPHATE 50 MG TABLET PO SCH (06:16)
[2018-05-11] MEDS: metFORMIN HCL 500 MG TABLET (FP) PO SCH ×2 (06:16→17:39)
[2018-05-11] MEDS: LEVOTHYROXINE NA 50 MCG TABLET (FP) PO SCH (06:16)
[2018-05-11] MEDS: FUROSEMIDE 40 MG/4 ML INJECTABLE VIAL IVPUSH SCH ×2 (06:16→13:51)
[2018-05-11 07:49] LABS: BASO % 0.3 % (0-2.0); HEMATOCRIT 35.9 % (32.4-45.2); HEMOGLOBIN 11.5 GM/dL (10.7-15.3); LYMPH % 4.7 % (8-40); MCH 31.8 pg (25.7-33.7); MCHC 32.1 g/dl (32.0-36.0); MEAN CELL VOLUME 99.2 fl (80-96); MEAN PLT VOLUME 8.2 fl (7.5-11.1); MONO % 2.7 % (3.8-10.2); NEUT % 92.3 % (42.8-82.8); PLATELET COUNT 258 K/MM3 (134-434); RBC 3.62 M/mm3 (3.60-5.2); RDW 15.4 % (11.6-15.6); WHITE BLOOD COUNT 10.7 K/mm3 (4.0-10.0)
[2018-05-11] MEDS: ALBUTEROL SO4 2.5/IPRATROPIUM 0.5 INH SOL 3 ML VIAL.NEB. NEB SCH ×3 (07:59→16:14)
[2018-05-11 08:19] LABS: ANION GAP 4 MMOL/L (8-16); BLOOD UREA NITROGEN 27 mg/dL (7-18); CALCIUM 9.5 mg/dL (8.5-10.1); CHLORIDE 101 mmol/L (98-107); CO2 38 mmol/L (21-32); GLUCOSE,RANDOM 210 mg/dL (74-106); MAGNESIUM 2.7 mg/dL (1.8-2.4); POTASSIUM 4.3 mmol/L (3.5-5.1); SODIUM 143 mmol/L (136-145)
[2018-05-11 09:20] LABS: ANISOCYTOSIS 1+; MACROCYTOSIS 1+; PLATELET ESTIMATE NORMAL
[2018-05-11] MEDS ORDERED: PT OWN MED DRAWER 7, Y5N ONE ×3 (09:37→18:37)
[2018-05-11] MEDS: PANTOPRAZOLE 40 MG TABLET (FP) PO SCH (09:42)
[2018-05-11] MEDS: MULTIVITAMINS THER W-MINERALS COMBO TABLET (FP) PO SCH (09:42)
[2018-05-11] MEDS: DIVALPROEX SODIUM 125 MG TABLET E.C. PO SCH (09:44)
[2018-05-11] MEDS: POLYETHYLENE GLYCOL 3350 119 GM BTL PO SCH (09:45)
[2018-05-11] MEDS: ALBUTEROL SO4 2.5/IPRATROPIUM 0.5 INH SOL 3 ML VIAL.NEB. NEB PRN ×2 (10:50→18:16)
--- NOTE | 2018-05-11 17:53 | PN ---
Progress Note (short form) - Note Progress Note: patient seen and examined in her room confused / wants to go home harsh coughing ( baseline) inappropriate verbally abusive Vital Signs Period Temp Pulse Resp BP Sys/Fox Pulse Ox Last 24 Hr 97.8 F-98.5 F 85-92 18-20 126-145/62-70 95-95 neck supple heart s1/s2 reg lungs clear bilat no wheezing / no rales / rhonchi abd obese ext no edema CBC, BMP 05/11/18 07:15 05/11/18 07:15 CBC, BMP 05/10/18 11:10 05/10/18 11:10 Microbiology 05/09/18 14:31 Blood - Peripheral Venous Blood Culture - Preliminary NO GROWTH OBTAINED AFTER 48 HOURS, INCUBATION TO CONTINUE FOR 3 DAYS. 05/09/18 14:31 Blood - Peripheral Venous Blood Culture - Preliminary NO GROWTH OBTAINED AFTER 48 HOURS, INCUBATION TO CONTINUE FOR 3 DAYS. Active Medications Acetaminophen (Tylenol -) 650 mg PO Q6H PRN PRN Reason: PAIN LEVEL 4 - 6 Albuterol/Ipratropium (Duoneb -) 1 amp NEB RQID [facility] Last Admin: 05/11/18 16:14 Dose: 1 amp Albuterol/Ipratropium (Duoneb -) 1 amp NEB Q4H PRN PRN Reason: SHORTNESS OF BREATH Last Admin: 05/11/18 10:50 Dose: 1 amp Divalproex Sodium (Depakote -) 125 mg PO BID [facility] Last Admin: 05/11/18 09:44 Dose: 125 mg Furosemide (Lasix Injection -) 40 mg IVPUSH BID@0600,1400 [facility] Last Admin: 05/11/18 13:51 Dose: 40 mg Levothyroxine Sodium (Synthroid -) 50 mcg PO ACBK [facility] Last Admin: 05/11/18 06:16 Dose: 50 mcg Metformin HCl (Glucophage -) 500 mg PO BID@0700,1630 [facility] Last Admin: 05/11/18 17:39 Dose: 500 mg Methylprednisolone Sodium Succinate (Solu-Medrol -) 40 mg IVPUSH Q8H-IV [facility] Last Admin: 05/11/18 17:40 Dose: 40 mg Mirtazapine (Remeron -) 7.5 mg PO HS [facility] Last Admin: 10/20/18 21:55 Dose: 7.5 mg Multivitamins/Minerals (Theragran-M) 1 each PO DAILY [facility] Last Admin: 05/11/18 09:42 Dose: 1 each Pantoprazole Sodium (Protonix -) 40 mg PO DAILY [facility] Last Admin: 05/11/18 09:42 Dose: 40 mg Polyethylene Glycol (Miralax (For Daily Use) -) 17 gm PO DAILY [facility] Last Admin: 05/11/18 09:45 Dose: 17 gm Sitagliptin Phosphate (Januvia -) 50 mg PO DAILY@0700 [facility] Last Admin: 05/11/18 06:16 Dose: 50 mg # COPD taper steroids -- possible change to PO continue nebulizer / inhaled steroids / singulair pulmonary consult Arrange for O2 at home .??? -will evaluate in am # CHF continue lasix bid trend renal function # Dementia behavioral out burst made worse with use of steroids increase depakote # DM sliding scale continue out patient medication ADA diet # HTN low salt diet continue medications # obesity / deconditioning physical therapy will need assitance once d/c'd ?? STR Problem List - Problems (1) Hypoxia Code(s): R09.02 - HYPOXEMIA (2) Shortness of breath Code(s): R06.02 - SHORTNESS OF BREATH (3) Cardiomegaly Code(s): I51.7 - CARDIOMEGALY (4) Chest pain Code(s): R07.9 - CHEST PAIN, UNSPECIFIED (5) Diabetes mellitus type 2 in obese Code(s): E11.69 - TYPE 2 DIABETES MELLITUS WITH OTHER SPECIFIED COMPLICATION; E66.9 - OBESITY, UNSPECIFIED (6) HTN (hypertension) Code(s): I10 - ESSENTIAL (PRIMARY) HYPERTENSION (7) Hypothyroidism Code(s): E03.9 - HYPOTHYROIDISM, UNSPECIFIED (8) Cough Code(s): R05 - COUGH
[2018-05-11] MEDS: DIVALPROEX SODIUM 250 MG TABLET E.C. PO SCH (18:32)
[2018-05-11] MEDS: ACETYLCYSTEINE 20% 200MG/ML 4 ML VIAL *FOR ORAL / INH USE ONLY NEB SCH (19:45)
[2018-05-11] MEDS: ALBUTEROL SO4 0.083% IH SOL 2.5 MG/3 ML VIAL.NEB. NEB SCH (19:45)
[2018-05-11] MEDS: MIRTAZAPINE 15 MG TABLET (FP) PO SCH (21:30)
[2018-05-11] MEDS: guaiFENesin 600 MG TABLET.ER (FP) PO SCH (21:30)
[2018-05-12] MEDS: methylPREDNISolone NA SUCC 40 MG/1 ML VIAL IVPUSH SCH ×3 (01:45→10:45)
[2018-05-12] MEDS: FUROSEMIDE 40 MG/4 ML INJECTABLE VIAL IVPUSH SCH (06:24)
[2018-05-12] MEDS: metFORMIN HCL 500 MG TABLET (FP) PO SCH (06:25)
[2018-05-12] MEDS: LEVOTHYROXINE NA 50 MCG TABLET (FP) PO SCH (06:25)
[2018-05-12] MEDS: sitaGLIPtin PHOSPHATE 50 MG TABLET PO SCH (06:25)
[2018-05-12] MEDS: ALBUTEROL SO4 0.083% IH SOL 2.5 MG/3 ML VIAL.NEB. NEB SCH ×3 (08:45→15:45)
[2018-05-12] MEDS ORDERED: PT OWN MED DRAWER 7, Y5N ONE (09:26)
[2018-05-12] MEDS: DIVALPROEX SODIUM 250 MG TABLET E.C. PO SCH ×2 (09:33→10:46)
[2018-05-12] MEDS: ACETYLCYSTEINE 20% 200MG/ML 4 ML VIAL *FOR ORAL / INH USE ONLY NEB SCH ×4 (09:33→15:45)
[2018-05-12] MEDS: guaiFENesin 600 MG TABLET.ER (FP) PO SCH ×2 (09:34→10:46)
[2018-05-12] MEDS: PANTOPRAZOLE 40 MG TABLET (FP) PO SCH ×2 (09:34→10:45)
[2018-05-12] MEDS: POLYETHYLENE GLYCOL 3350 119 GM BTL PO SCH ×2 (09:34→10:46)
[2018-05-12] MEDS: MULTIVITAMINS THER W-MINERALS COMBO TABLET (FP) PO SCH ×2 (09:35→10:45)
--- NOTE | 2018-05-12 10:25 | PN ---
Progress Note (short form) - Note Progress Note: patient sitting in hallway - screaming / inappropriate confused / wants to go home harsh coughing ( baseline) inappropriate verbally abusive to staff Vital Signs Period Temp Pulse Resp BP Sys/Fox Pulse Ox Last 24 Hr 97.3 F-98.5 F 76-92 18-20 126-141/56-73 94-95 neck supple heart s1/s2 reg lungs clear bilat no wheezing / no rales / rhonchi abd obese ext no edema CBC, BMP 05/11/18 07:15 05/11/18 07:15 CBC, BMP 05/11/18 07:15 05/11/18 07:15 Microbiology 05/09/18 14:31 Blood - Peripheral Venous Blood Culture - Preliminary NO GROWTH OBTAINED AFTER 48 HOURS, INCUBATION TO CONTINUE FOR 3 DAYS. 05/09/18 14:31 Blood - Peripheral Venous Blood Culture - Preliminary NO GROWTH OBTAINED AFTER 48 HOURS, INCUBATION TO CONTINUE FOR 3 DAYS. Active Medications Acetaminophen (Tylenol -) 650 mg PO Q6H PRN PRN Reason: PAIN LEVEL 4 - 6 Acetylcysteine (Mucomyst 20 Oral / Inh Use Only*) 20 mg NEB RQID [facility] Stop: 05/15/18 23:59 Last Admin: 05/12/18 09:33 Dose: Not Given Albuterol Sulfate (Ventolin 0.083% Nebulizer Soln -) 1 amp NEB RQID [facility] Last Admin: 05/12/18 08:45 Dose: Not Given Albuterol/Ipratropium (Duoneb -) 1 amp NEB Q4H PRN PRN Reason: SHORTNESS OF BREATH Last Admin: 05/11/18 18:16 Dose: 1 amp Divalproex Sodium (Depakote -) 250 mg PO BID [facility] Last Admin: 05/12/18 09:33 Dose: Not Given Furosemide (Lasix Injection -) 40 mg IVPUSH BID@0600,1400 [facility] Last Admin: 05/12/18 06:24 Dose: 40 mg Guaifenesin (Mucinex -) 600 mg PO BID [facility] Last Admin: 05/12/18 09:34 Dose: Not Given Levothyroxine Sodium (Synthroid -) 50 mcg PO ACBK [facility] Last Admin: 05/12/18 06:25 Dose: 50 mcg Metformin HCl (Glucophage -) 500 mg PO BID@0700,1630 [facility] Last Admin: 05/12/18 06:25 Dose: 500 mg Methylprednisolone Sodium Succinate (Solu-Medrol -) 40 mg IVPUSH Q8H-IV [facility] Last Admin: 05/12/18 09:34 Dose: Not Given Mirtazapine (Remeron -) 7.5 mg PO HS [facility] Last Admin: 05/11/18 21:30 Dose: 7.5 mg Multivitamins/Minerals (Theragran-M) 1 each PO DAILY [facility] Last Admin: 05/12/18 09:35 Dose: Not Given Pantoprazole Sodium (Protonix -) 40 mg PO DAILY [facility] Last Admin: 05/12/18 09:34 Dose: Not Given Polyethylene Glycol (Miralax (For Daily Use) -) 17 gm PO DAILY [facility] Last Admin: 05/12/18 09:34 Dose: Not Given Sitagliptin Phosphate (Januvia -) 50 mg PO DAILY@0700 [facility] Last Admin: 05/12/18 06:25 Dose: 50 mg # COPD taper steroids -- change to PO continue nebulizer / inhaled steroids / singulair pulmonary consult Arrange for O2 at home, patient will be able to determine need . # CHF continue lasix bid trend renal function # Dementia behavioral out burst made worse with use of steroids increase depakote # DM sliding scale continue out patient medication ADA diet # HTN low salt diet continue medications # obesity / deconditioning physical therapy will need assitance once d/c'd Problem List - Problems (1) Hypoxia Code(s): R09.02 - HYPOXEMIA (2) Shortness of breath Code(s): R06.02 - SHORTNESS OF BREATH (3) Cardiomegaly Code(s): I51.7 - CARDIOMEGALY (4) Chest pain Code(s): R07.9 - CHEST PAIN, UNSPECIFIED (5) Diabetes mellitus type 2 in obese Code(s): E11.69 - TYPE 2 DIABETES MELLITUS WITH OTHER SPECIFIED COMPLICATION; E66.9 - OBESITY, UNSPECIFIED (6) HTN (hypertension) Code(s): I10 - ESSENTIAL (PRIMARY) HYPERTENSION (7) Hypothyroidism Code(s): E03.9 - HYPOTHYROIDISM, UNSPECIFIED (8) Cough Code(s): R05 - COUGH
--- NOTE | 2018-05-12 11:17 | CONSULT ---
Consultation: REQUESTING PROVIDER: Dr. Vidal CONSULT REQUEST: Pulmonology. We have been asked to medically evaluate this patient for shortness of breath and chest tightness. HISTORY OF PRESENT ILLNESS: 82 yo Female with PMH of COPD, CHF, Dimentia, NIDDM, Hypothyroidism, Obesity was admitted with chest tightness and shortness of breath in addition to a cough occasionally productive of yellow sputum. Upon seeing her this morning she states that she feels much better than on admission and that she is ready to leave today. She denies any fevers, chills, SOB, chest tightness or pain, n/v /d at this time. She does still endorse her cough and coughs repeatedly throughout the interview which she states is baseline for her and it comes and goes frequently. REVIEW OF SYSTEMS: CONSTITUTIONAL: Absent: fever, chills, diaphoresis, generalized weakness, malaise, loss of appetite, weight change HEENT: Absent: rhinorrhea, nasal congestion, throat pain, throat swelling, difficulty swallowing, mouth swelling, ear pain, eye pain, visual changes CARDIOVASCULAR: Absent: chest pain, syncope, palpitations, irregular heart rate, lightheadedness , peripheral edema RESPIRATORY: cough, dyspnea with exertion, Absent: shortness of breath, wheezing, stridor, hemoptysis GASTROINTESTINAL: Absent: abdominal pain, abdominal distension, nausea, vomiting, diarrhea, constipation, melena, hematochezia GENITOURINARY: Absent: dysuria, frequency, urgency, hesitancy, hematuria, flank pain, genital pain MUSCULOSKELETAL: Absent: myalgia, arthralgia, joint swelling, back pain, neck pain SKIN: Absent: rash, itching, pallor HEMATOLOGIC/IMMUNOLOGIC: Absent: easy bleeding, easy bruising, lymphadenopathy, frequent infections ENDOCRINE: Absent: unexplained weight gain, unexplained weight loss, heat intolerance, cold intolerance NEUROLOGIC: Absent: headache, focal weakness or paresthesias, dizziness, unsteady gait, seizure, mental status changes, bladder or bowel incontinence PSYCHIATRIC: Absent: anxiety, depression, suicidal or homicidal ideation, hallucinations. PHYSICAL EXAMINATION Vital Signs - 24 hr 05/11/18 05/11/18 05/11/18 15:00 15:04 18:00 Temperature 98.5 F 98.4 F Pulse Rate 85 83 Respiratory 20 18 Rate Blood Pressure 134/62 132/56 L O2 Sat by Pulse 95 Oximetry (%) 05/11/18 05/11/18 05/11/18 18:16 21:00 22:00 Temperature 98.5 F Pulse Rate 91 H 88 Respiratory 20 Rate Blood Pressure 130/63 O2 Sat by Pulse 95 94 L Oximetry (%) 05/11/18 05/12/18 05/12/18 23:00 02:00 06:00 Temperature 98.3 F 97.3 F L Pulse Rate 84 76 Respiratory Rate Blood Pressure 135/73 141/65 O2 Sat by Pulse 94 L Oximetry (%) GENERAL: A&O, Obese, no acute distress HEAD: Normocephalic, atraumatic. EYES: PERRL, no scleral icterus EARS, NOSE, THROAT: oropharynx clear without exudates. Moist mucous membranes. LUNGS: Diffuse rhonchi, decreased air entry at the bases HEART: Regular rate and rhythm, normal S1 and S2 without murmur ABDOMEN: Soft, nontender to palpation, normoactive bowel sounds PSYCHIATRIC: Cooperative. Good eye contact. Appropriate mood and affect. Laboratory Results - last 24 hr 05/11/18 05/12/18 17:20 06:20 POC Glucometer 254 258 Active Medications Generic Name Dose Route Start Last Admin Trade Name Freq PRN Reason Stop Dose Admin Acetaminophen 650 mg 05/09/18 23:57 Tylenol - PO Q6H PRN PAIN LEVEL 4 - 6 Acetylcysteine 20 mg 05/11/18 20:00 05/12/18 10:44 Mucomyst 20 Oral / Inh Use Only* NEB 05/15/18 23:59 20 mg RQID SHAHEEN Administration Albuterol Sulfate 1 amp 05/11/18 20:00 05/12/18 08:45 Ventolin 0.083% Nebulizer Soln - NEB Not Given RQID SHAHEEN Albuterol/Ipratropium 1 amp 05/09/18 23:50 05/11/18 18:16 Duoneb - NEB 1 amp Q4H PRN Administration SHORTNESS OF BREATH Divalproex Sodium 250 mg 05/11/18 18:00 05/12/18 10:46 Depakote - PO 250 mg BID SHA[facility]EN Administration Furosemide 40 mg 05/10/18 06:00 05/12/18 06:24 Lasix Injection - IVPUSH 40 mg BID@0600,1400 [facility] Administration Guaifenesin 600 mg 05/11/18 22:00 05/12/18 10:46 Mucinex - PO 600 mg BID [facility]EN Administration Levothyroxine Sodium 50 mcg 05/10/18 07:00 05/12/18 06:25 Synthroid - PO 50 mcg ACBK [facility] Administration Metformin HCl 500 mg 05/10/18 07:00 05/12/18 06:25 Glucophage - PO 500 mg BID@0700,1630 [facility] Administration Methylprednisolone Sodium Succinate 40 mg 05/09/18 00:15 05/12/18 10:45 Solu-Medrol - IVPUSH 40 mg Q8H-IV [facility] Administration Mirtazapine 7.5 mg 05/10/18 22:00 05/11/18 21:30 Remeron - PO 7.5 mg HS [facility] Administration Multivitamins/Minerals 1 each 05/10/18 10:00 05/12/18 10:45 Theragran-M PO 1 each DAILY [facility] Administration Pantoprazole Sodium 40 mg 05/10/18 10:00 05/12/18 10:45 Protonix - PO 40 mg DAILY [facility] Administration Polyethylene Glycol 17 gm 05/10/18 10:00 05/12/18 10:46 Miralax (For Daily Use) - PO 17 gm DAILY [facility] Administration Sitagliptin Phosphate 50 mg 05/10/18 07:00 05/12/18 06:25 Januvia - PO 50 mg DAILY@0700 [facility] Administration ASSESSMENT/PLAN: 82 yo Female with PMH of COPD, CHF, Dimentia, NIDDM, Hypothyroidism, Obesity was admitted with chest tightness and shortness of breath in addition to a cough occasionally productive of yellow sputum. Acute Hypoxic Respiratory Distress Secondary to COPD -Pre and post noted, Pt will require home O2 if able to tolerate -SoluMedrol 40 mg IV Q8, convert to PO Prednisone 40 mg Daily with taper on discharge -Mucomyst NEB RQID -Duonebs Q4 -Albuterol NEB Q4 PRN -Mucinex BID Diastolic CHF -Recent ECHO in 02/2018 with Normal LV size and fxn, EF 65-70% -Not clinically fluid overloaded at this time -Continue lasix 40 mg IV BID -Switch to PO on discharge NIRMALA -Pre-renal, likely secondary to lasix use -Monitor BMPs -Cr stable NIDDM -Metformin 500 mg PO BID -Januvia 50 mg PO Daily Hypothyroidism -Synthroid 50 mcg PO Daily Dimentia -Frequent outbursts and behavioral difficulties as per chart -Calm, alert and oriented when I saw her this AM -Depakote increased from 125 mg PO BID to 250 mg PO BID -Mirtazapine 7.5 mg PO HS -Myrbetriq 25 mg PO Daily FEN -Fluids: None -Electrolytes: no abnormalities -Nutrition: Diabetic Na controlled diet Prophylaxis -Early ambulation Dispo: Thank you for this consultative opportunity. DC planning as per Primary Visit type - Emergency Visit Emergency Visit: Yes ED Registration Date: 05/09/18 Care time: The patient presented to the Emergency Department on the above date and was hospitalized for further evaluation of their emergent condition. - New Patient This patient is new to me today: Yes Date on this admission: 05/12/18 - Critical Care Critical Care patient: No
--- NOTE | 2018-05-12 12:50 | PN ---
Teaching Attending Note Name of Resident: Paolo Shepherd ATTENDING PHYSICIAN STATEMENT I saw and evaluated the patient. I reviewed the resident's note and discussed the case with the resident. I agree with the resident's findings and plan as documented. SUBJECTIVE: Pt seen and examined. Briefly, 82yo female with h/o HTN, hypothyroidism, CHF, COPD, dementia who was admitted for shortness of breath, found to be hypoxic on room air. Treated for acute COPD exacerbation with improvement in symptoms. Currently pt combative, agitated, refusing to answer questions and refusing exam. Was noted to be hypoxic on room air, will need home O2. OBJECTIVE: Vital Signs Period Temp Pulse Resp BP Sys/Fox Pulse Ox Last 24 Hr 97.3 F-98.5 F 76-91 18-20 130-141/56-73 94-95 Intake & Output 05/09/18 05/10/18 05/11/18 05/12/18 23:59 23:59 23:59 23:59 Intake Total 150 900 Balance 150 900 Weight 90.718 kg 96.87 kg Gen: agitated but breathing nonlabored rest of exam refused CBC, BMP 05/11/18 07:15 05/11/18 07:15 Active Medications Acetaminophen (Tylenol -) 650 mg PO Q6H PRN PRN Reason: PAIN LEVEL 4 - 6 Acetylcysteine (Mucomyst 20 Oral / Inh Use Only*) 20 mg NEB RQID [facility] Stop: 05/15/18 23:59 Last Admin: 05/12/18 12:21 Dose: Not Given Albuterol Sulfate (Ventolin 0.083% Nebulizer Soln -) 1 amp NEB RQID [facility] Last Admin: 05/12/18 12:21 Dose: Not Given Albuterol/Ipratropium (Duoneb -) 1 amp NEB Q4H PRN PRN Reason: SHORTNESS OF BREATH Last Admin: 05/11/18 18:16 Dose: 1 amp Divalproex Sodium (Depakote -) 250 mg PO BID [facility] Last Admin: 05/12/18 10:46 Dose: 250 mg Furosemide (Lasix Injection -) 40 mg IVPUSH BID@0600,1400 [facility] Last Admin: 05/12/18 06:24 Dose: 40 mg Guaifenesin (Mucinex -) 600 mg PO BID [facility] Last Admin: 05/12/18 10:46 Dose: 600 mg Levothyroxine Sodium (Synthroid -) 50 mcg PO ACBK [facility] Last Admin: 05/12/18 06:25 Dose: 50 mcg Metformin HCl (Glucophage -) 500 mg PO BID@0700,1630 [facility] Last Admin: 05/12/18 06:25 Dose: 500 mg Methylprednisolone Sodium Succinate (Solu-Medrol -) 40 mg IVPUSH Q8H-IV [facility] Last Admin: 05/12/18 10:45 Dose: 40 mg Mirtazapine (Remeron -) 7.5 mg PO HS [facility] Last Admin: 05/11/18 21:30 Dose: 7.5 mg Multivitamins/Minerals (Theragran-M) 1 each PO DAILY [facility] Last Admin: 05/12/18 10:45 Dose: 1 each Pantoprazole Sodium (Protonix -) 40 mg PO DAILY [facility] Last Admin: 05/12/18 10:45 Dose: 40 mg Polyethylene Glycol (Miralax (For Daily Use) -) 17 gm PO DAILY [facility] Last Admin: 05/12/18 10:46 Dose: 17 gm Sitagliptin Phosphate (Januvia -) 50 mg PO DAILY@0700 [facility] Last Admin: 05/12/18 06:25 Dose: 50 mg ASSESSMENT AND PLAN: Acute on Chronic Hypoxic Respiratory Failure Acute COPD Exacerbation LV Diastolic Dysfunction Pulmonary HTN HTN Hypothyroidism Dementia - can discharge on prednisone 40mg daily and taper as outpt - will need home O2 - inhaled bronchodilators - glucose control while on systemic steroids - DVT prophylaxis - d/c planning Thank you for this consult Marcello Hall MD
--- NOTE | 2018-05-12 14:56 | DS ---
Physical Examination Vital Signs: Vital Signs Temperature 97.3 F L 05/12/18 06:00 Pulse Rate 76 05/12/18 06:00 Respiratory Rate 20 05/11/18 22:00 Blood Pressure 141/65 05/12/18 06:00 O2 Sat by Pulse Oximetry (%) 94 L 05/11/18 23:00 Findings/Remarks: 82 y/o female with PHX of COPD /CHF/ dementia / DiabetesII/ HTN / hypothyroid / obesity has had multiple ER visits and short admissions for exacerbation of COPD / CHF. Resides at assisted living facility and is known to be non compliant with diet and at times medication. She was seen this week 3 times at [facility] ER where she was treated and released -- she declined admission, or at the time was found to be stable and sent back to DC. ( she was in ER saturday night ). Today she presents with c/o of chest tightness and SOB. She reports occurs while walking down stairs , Patiet does not do the stairs at DC, as she ambulates with walker and uses elevators. She denies fever and chills. I contacted staff at the facility -- reports no hx of fever / chills / productive cough. Evaluation at ER patient was found to be hypoxic -- Sat at 82% RA in spite of nebulizer treatments / steroids and required O2 to maintain saturation >88% -- patient was admitted and further treated to maximize respiratory status. During hospital stay she has required O2 continuously. # COPD taper steroids -- change to PO and rapid taper continue nebulizer / inhaled steroids / singulair pulmonary consult appreciated Arrange for O2 at home, patient will be able to determine need . # CHF continue lasix bid renal function stable # Dementia behavioral out burst made worse with use of steroids increase depakote # DM sliding scale continue out patient medication ADA diet # HTN low salt diet continue medications # obesity / deconditioning physical therapy will need PT as out patient Constitutional: Yes: Well Nourished, Anxious, Other (verbally abusive -- screaming and insulting) Eyes: Yes: Conjunctiva Clear, EOM Intact HENT: Yes: Atraumatic, Normocephalic Neck: Yes: Supple, Trachea Midline Cardiovascular: Yes: Regular Rate and Rhythm Respiratory: Yes: Regular, Diminished, On Nasal O2, SOB on Exertion. No: Rales , Rhonchi, Wheezes Gastrointestinal: Yes: Normal Bowel Sounds, Soft, Abdomen, Obese ...Rectal Exam: Yes: Deferred Renal/: Yes: WNL Breast(s): Yes: WNL Musculoskeletal: Yes: WNL Extremities: Yes: WNL Edema: Yes Edema: LLE: 2+, RLE: 2+ Peripheral Pulses WNL: Yes Integumentary: Yes: WNL Neurological: Yes: Confusion, Pre-Existing Deficit, Unsteady Gait, Weakness Psychiatric: Yes: Alert Labs: CBC, BMP 05/11/18 07:15 05/11/18 07:15 Discharge Summary Reason For Visit: ACUTE EXACERBATION OF COPD Current Active Problems COPD exacerbation (Acute) Condition: Improved - Instructions Referrals: Alondra Vidal MD [Primary Care Provider] - Disposition: HOME - Home Medications Comprehensive Discharge Medication List: Ambulatory Orders Albuterol 2.5/Ipratropium 0.5 [Duoneb -] 1 neb NEB Q4H PRN 04/16/18 Furosemide 40 mg PO BID 04/16/18 Levothyroxine [Synthroid -] 50 mcg PO DAILY 04/16/18 Mirabegron [Myrbetriq] 25 mg PO DAILY 04/16/18 Mirtazapine 7.5 mg PO HS 04/16/18 Multivit,Tx with Iron,Minerals [Xzogtnof-U-Q with Minerals] 1 each PO DAILY Polyethylene Glycol 3350 [Miralax 119 gm Btl -] 17 gm PO DAILY bottle 04/22/18 Sitagliptin Phosphate [Januvia -] 50 mg PO DAILY@0700 30 Days #30 tablet metFORMIN HCL [Glucophage -] 500 mg PO BID@0700,1630 30 Days #60 tablet Divalproex [Depakote -] 250 mg PO BID 05/09/18 Potassium Chloride 20 meq PO DAILY 05/09/18 O2 at 2 l n/c continuos
[2018-05-12 16:31] VITALS: BP 153/85; PULSE 79; TEMP 98.5
== END 2018-05-12 17:05 | disposition home or self-care (01) | DRG 190 ==
LOC: JER 12:39 → JERBED 15:37 → J7W 05-10 06:47 → J6S 05-10 18:31
PROVIDERS: ADMIT Family Medicine; ATTEND Family Medicine
DX: J44.1 Chronic obstructive pulmonary disease with (acute) exacerbation (principal); J96.21 Acute and chronic respiratory failure with hypoxia; N17.9 Acute kidney failure, unspecified; I50.30 Unspecified diastolic (congestive) heart failure; I11.0 Hypertensive heart disease with heart failure; F03.90 Unspecified dementia, unspecified severity, without behavioral disturbance, psychotic disturbance, mood disturbance, and anxiety; E11.9 Type 2 diabetes mellitus without complications; E66.9 Obesity, unspecified; Z68.34 Body mass index [BMI] 34.0-34.9, adult; I25.10 Atherosclerotic heart disease of native coronary artery without angina pectoris; F41.9 Anxiety disorder, unspecified; F29 Unspecified psychosis not due to a substance or known physiological condition; R06.2 Wheezing; R07.89 Other chest pain; R05 Cough; I27.20 Pulmonary hypertension, unspecified; R26.81 Unsteadiness on feet
CPT/HCPCS: 36415; 71045-TC-FY; 80048; 80053; 82962; 83735; 83880; 84484; 85025; 85610; 87040; 93005; 93010; 94640; 94761; 97116-GP; 97162-GP; 99285-25

== ENCOUNTER 2019-06-29 10:57 | Inpatient (IN) | payer OTHER, BC ==
--- NOTE | 2019-06-29 11:37 | PDOC ---
History of Present Illness - General Stated Complaint: SOB Time Seen by Provider: 06/29/19 11:29 - History of Present Illness Initial Comments: History limited 2/2 dementia Ms. Simpson is a 82 y/o female with PMH significant for COPD, CHF, dementia, DMT2 , HTN, hypothyroid, BIBEMS from [facility] with cough and shortness of breath over the past three days. Reports that she developed a productive cough and started feeling short of breath on Saturday. Denies fever/chills, chest pain. Denies leg calf pain. Denies vomiting/diarrhea/constipation. Denies urinary symptoms. Past History - Past Medical History Allergies/Adverse Reactions: Allergies Allergy/AdvReac Type Severity Reaction Status Date / Time amoxicillin Allergy Verified 06/29/19 11:39 chlorhexidine Allergy Verified 06/29/19 11:39 ciprofloxacin [From Cipro] Allergy Verified 06/29/19 11:39 codeine Allergy Verified 06/29/19 11:39 Quinolones Allergy Verified 06/29/19 11:39 Sulfa (Sulfonamide Allergy Verified 06/29/19 11:39 Antibiotics) sulfamethoxazole Allergy Verified 06/29/19 11:39 [From Bactrim] trimethoprim [From Bactrim] Allergy Verified 06/29/19 11:39 Home Medications: Ambulatory Orders Furosemide 40 mg PO DAILY 04/16/18 Acetaminophen [Tylenol .Regular Strength -] 650 mg PO Q6H PRN tablet 05/12/18 Albuterol 2.5/Ipratropium 0.5 [Duoneb -] 1 amp NEB RQID amp 05/12/18 Apixaban [Eliquis] 5 mg PO BID 06/29/19 Aspirin 81 mg PO DAILY 06/29/19 Atorvastatin Ca [Lipitor] 80 mg PO HS 06/29/19 Desvenlafaxine [Desvenlafaxine ER] 50 mg PO AM 06/29/19 Iron Polysaccharide Complex [Ferrex 150] 150 mg PO DAILY 06/29/19 Levothyroxine [Synthroid -] 50 mcg PO DAILY 06/29/19 Lipase/Protease/Amylase [Mulugeta Carrizales 36,000 Units Capsule] 2 each PO ASDIR Lisinopril 10 mg PO AM 06/29/19 Omeprazole 20 mg PO BID 06/29/19 Oxybutynin Chloride 5 mg PO AM 06/29/19 Sitagliptin Phos/Metformin HCl [Janumet 50-1,000 mg Tablet] 1 each PO AM Spironolactone 25 mg PO DAILY 06/29/19 traZODone HCL [Trazodone HCl] 50 mg PO HS 06/29/19 Anemia: No Asthma: No Cancer: No Cardiac Disorders: No COPD: Yes CHF: Yes Dementia: Yes Diabetes: No GI Disorders: Yes (diverticulitis) Disorders: No HTN: Yes Hypercholesterolemia: No Liver Disease: No Psychiatric Problems: Yes (depression) Seizures: No Thyroid Disease: No - Surgical History Abdominal Surgery: No Appendectomy: No Cardiac Surgery: No Cholecystectomy: No Lung Surgery: No Neurologic Surgery: No Orthopedic Surgery: Yes (bilat knee replacement) - Immunization History Immunization Up to Date: No - Psycho Social/Smoking Cessation Hx Smoking History: Never smoked Have you smoked in the past 12 months: No Hx Alcohol Use: No Drug/Substance Use Hx: No Substance Use Type: None Hx Substance Use Treatment: No Review of Systems - Review of Systems Comments:: Limited 2/2 dementia GENERAL/CONSTITUTIONAL: No fever or chills. No weakness._ HEAD, EYES, EARS, NOSE AND THROAT: No change in vision. No change in hearing. No sore throat._ CARDIOVASCULAR: No chest pain. Reports shortness of breath. RESPIRATORY: Reports productive cough GASTROINTESTINAL: No nausea, vomiting, diarrhea or constipation._ GENITOURINARY: No dysuria, frequency, or change in urination._ MUSCULOSKELETAL: No joint or muscle swelling or pain. No neck or back pain._ SKIN: No rash_ NEUROLOGIC: No headache, vertigo, loss of consciousness, or change in strength/ sensation._ ENDOCRINE: No increased thirst. No abnormal weight change_ HEMATOLOGIC/LYMPHATIC: No anemia, easy bleeding, or history of blood clots._ ALLERGIC/IMMUNOLOGIC: No hives or skin allergy._ *Physical Exam - Physical Exam GENERAL: Awake, alert, and oriented to person/place/time, in no acute distress_ HEAD: No signs of trauma, normocephalic, atraumatic _ EYES: PERRLA, EOMI, sclera anicteric, conjunctiva clear_ ENT: Hearing grossly normal, nares patent, oropharynx clear without exudates. No uvular deviation. Moist mucosa_ NECK: Normal ROM, supple, no lymphadenopathy, JVD, or masses_ LUNGS: No acute respiratory distress, speaks in full sentences, congestion heard throughout bilateral upper/lower lung [place], mild wheezes in right base HEART: Regular rate and rhythm, normal S1 and S2, no murmurs appreciated, peripheral pulses normal and equal bilaterally._ ABDOMEN: Soft, obese, nontender, normoactive bowel sounds. No guarding, no rebound. No masses_ EXTREMITIES: Normal inspection, Normal range of motion, 1+ pitting edema. No clubbing or cyanosis_ NEUROLOGICAL: Cranial nerves II through XII grossly intact. Normal speech, normal gait, no focal sensorimotor deficits _ SKIN: Warm, Dry, normal turgor, no rashes or lesions noted_ ED Treatment Course - LABORATORY CBC & Chemistry Diagram: 07/01/19 08:27 07/01/19 08:27 Medical Decision Making - Medical Decision Making 06/29/19 11:47 83F hx of CHF COPD DM a-fib on eliquis hypothyroidism presenting with shortness of breath and productive over the past couple of days. DDx includes COPD exacerbation vs CHF exacerbation. -cbc, cmp, bnp -cxr, ekg, trop -duonebs x3, solumedrol 06/29/19 11:48 EKG shows NSR, 78 bpm, left axis deviation, no ST elevation, QTc 421. 06/29/19 13:24 Labs reviewed. Laboratory Tests 06/29/19 06/29/19 06/29/19 11:49 11:49 11:49 WBC 7.5 RBC 3.31 L Hgb 11.0 Hct 34.0 MCV 102.7 H MCH 33.4 MCHC 32.5 RDW 15.8 H Plt Count 262 MPV 8.4 Absolute Neuts (auto) 5.0 Neutrophils % 65.9 D Lymphocytes % 18.3 D Monocytes % 11.2 H D Eosinophils % 4.0 D Basophils % 0.6 Nucleated RBC % 0 Sodium 138 Potassium 5.6 H Chloride 101 Carbon Dioxide 30 Anion Gap 8 BUN 36.2 H Creatinine 1.4 H Est GFR (CKD-EPI)AfAm 39.89 Est GFR (CKD-EPI)NonAf 34.42 Random Glucose 100 Calcium 9.0 Total Bilirubin 0.5 AST 29 ALT 15 Alkaline Phosphatase 63 Creatine Kinase 80 Troponin I < 0.02 B-Natriuretic Peptide 557.7 H Total Protein 6.8 Albumin 3.1 L 12/09/19 15:39 Patient reassessed. Saturating well on nasal cannula, but desats to 80's and into mild respiratory distress when standing and ambulating. Plan to admit. Call placed to Dr. Vidal. CXR shows patch infiltrates in bilateral lung bases. 06/29/19 16:30 D/w Dr. Vidal who accepts the patient for admission. Discharge - Discharge Information Problems reviewed: Yes Clinical Impression/Diagnosis: Shortness of breath Condition: Stable - Admission Yes - Follow up/Referral - Patient Discharge Instructions - Post Discharge Activity
[2019-06-29] MEDS ORDERED: ALBUTEROL SO4 2.5/IPRATROPIUM 0.5 INH SOL 3 ML VIAL.NEB. NEB ONE ×3 (11:50→21:41)
[2019-06-29] MEDS ORDERED: methylPREDNISolone NA SUCC 125 MG/2 ML VIAL IVPUSH ONE (11:52)
[2019-06-29] MEDS ORDERED: methylPREDNISolone NA SUCC 125 MG/2 ML VIAL ONE (12:02)
--- NOTE | 2019-06-29 12:11 | PDOC ---
Documentation entered by Aaron Hernandez SCRIBE, acting as scribe for Zeyad Leon MD. Zeyad Leon MD: This documentation has been prepared by the Mary alvarenga Xhesika, SCRIBE, under my direction and personally reviewed by me in its entirety. I confirm that the documentation accurately reflects all work, treatment, procedures, and medical decision making performed by me. Attending Attestation - Resident Resident Name: DalalTony - ED Attending Attestation I have performed the following: I have examined & evaluated the patient, The case was reviewed & discussed with the resident, I agree w/resident's findings & plan, Exceptions are as noted - HPI HPI: 06/29/19 11:53 The patient is an 83 year old female with a significant PMH of COPD, CHF, hypertension, diverticulitis, dementia, hypothyroidism, cardiomyopathy, and depression who presents to the emergency department [facility] for a couple weeks of SOB with productive cough over the past 3 days. Patient denies any associated fever, chills, chest pain, productive cough. Patient does note feeling slightly increasingly short of breath because of cough. Patient denies any leg swelling, calf pain. history is limited, patient is an unreliable historian due to her dementia. The patient denies chest pain, headache and dizziness. Denies fever, chills, nausea, vomiting, diarrhea and constipation. Denies dysuria, frequency, urgency and hematuria. Allergies: amoxicillin, chlorhexidine, ciprofloxacin, codeine, quinolones. Social History: None reported. Surgical History: B/L knee replacement. - Physicial Exam PE: 06/29/19 11:55 GENERAL: The patient is awake, alert, Nontoxic - in no acute distress. HEAD: Normocephalic, atraumatic. EYES: extraocular movements intact, sclera anicteric, conjunctiva clear. ENT: Normal voice, Moist mucous membranes. NECK: Normal range of motion, supple without lymphadenopathy, JVD, or masses. LUNGS: Breath sounds equal, clear to auscultation bilaterally. No wheezes, no crackles, no rales. HEART: Regular rate and rhythm, normal S1 and S2 without murmur, rub or gallop. ABDOMEN: Soft, nontender, normoactive bowel sounds. No guarding, no rebound. No masses. EXTREMITIES: Normal range of motion, trace edema. No clubbing or cyanosis. No cords, erythema, or tenderness. NEUROLOGICAL: No facial asymmetry, Normal speech, normal gait. PSYCH: Normal mood, normal affect. SKIN: Warm, Dry, normal turgor, no rashes or lesions noted. - Medical Decision Making 06/29/19 11:50 Differential for the patient's symptoms includes bronchitis, pneumonia, no fever or body aches to suggest influenza. Also consider ACS will obtain troponin, EKG, chest x-ray, labs Will reassess 06/29/19 16:29 pts cxr noted for widened mdiastinum and a large bootshaped heart pt has no associated pain, disseciton pt declined bedside echo will obtain CT chest to further evlauate Heart Score/ECG Review - ECG Impressions Comment:: 06/29/19 12:39 Twelve-lead EKG was performed and reviewed by me. There is normal sinus rhythm with a normal rate. Rate of 78 Left axis deviation T wave inversion in 1 and aVL
[2019-06-29 12:23] LABS: BASO % 0.6 % (0-2.0); LYMPH % 18.3 % (8-40); MCH 33.4 pg (25.7-33.7); MCHC 32.5 g/dl (32.0-36.0); MEAN CELL VOLUME 102.7 fl (80-96); MEAN PLT VOLUME 8.4 fl (7.5-11.1); MONO % 11.2 % (3.8-10.2); NEUT % 65.9 % (42.8-82.8); PLATELET COUNT 262 K/MM3 (134-434); RBC 3.31 M/mm3 (3.60-5.2); RDW 15.8 % (11.6-15.6); WHITE BLOOD COUNT 7.5 K/mm3 (4.0-10.0)
[2019-06-29 12:45] LABS: ALBUMIN 3.1 g/dl (3.4-5.0); BILIRUBIN,TOTAL 0.5 mg/dL (0.2-1); BLOOD UREA NITROGEN 36.2 mg/dL (7-18); CREATININE 1.4 mg/dL (0.55-1.3); N-TERMINAL BNP 557.7 pg/ml (5-450); POTASSIUM 5.6 mmol/L (3.5-5.1); TOT PROT 6.8 g/dl (6.4-8.2)
--- NOTE | 2019-06-29 13:32 | EKG ---
Test Reason : Blood Pressure : / mmHG Vent. Rate : 078 BPM Atrial Rate : 078 BPM P-R Int : 168 ms QRS Dur : 112 ms QT Int : 370 ms P-R-T Axes : -10 -41 116 degrees QTc Int : 421 ms NORMAL SINUS RHYTHM LEFT AXIS DEVIATION T WAVE ABNORMALITY, CONSIDER LATERAL ISCHEMIA ABNORMAL ECG WHEN COMPARED WITH ECG OF 09-MAY-2018 12:56, PREMATURE ATRIAL COMPLEXES ARE NO LONGER PRESENT Confirmed by LORI BARBA MD ([id number]) on 06/29/2019 1:32:18 PM Referred By: Confirmed By:LORI BARBA MD
[2019-06-29] MEDS ORDERED: ALBUTEROL SO4 0.083% IH SOL 2.5 MG/3 ML VIAL.NEB. NEB ONE ×2 (14:31→14:36)
--- NOTE | 2019-06-29 16:41 | HP ---
Admitting History and Physical - Admission History of Present Illness: 06/29/19 11:53 The patient is an 83 year old female with a significant PMH of COPD, CHF, hypertension, diverticulitis, dementia, hypothyroidism, cardiomyopathy, OA with severe pain to left shoulder and depression who presents to the emergency department [facility] from [facility] with c/o of SOB and Cough. I evaluated patient last week in usual state of health - she has chromic productive cough and no recent hx of fever and chills.Staff reports increased coughing over last 2 days. History obtained from her is limited, patient is an unreliable historian due to her dementia. The patient denies chest pain, headache and dizziness. Denies fever, chills, nausea, vomiting, diarrhea and constipation. Denies dysuria, frequency, urgency and hematuria. Patient transferred to ED due to BRICEÑO -- possible exacerbation of COPD. Allergies: amoxicillin, chlorhexidine, ciprofloxacin, codeine, quinolones. Social History: None reported. Surgical History: B/L knee replacement. 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 Cardiovascular: Yes: CAD, CHF, HTN Pulmonary: Yes: COPD Renal/: Yes: Renal Inusuff Reproductive: Yes: Postmenopausal Psych: Yes: Anxiety, Depression, Psychosis Musculoskeletal: Yes: Osteoarthritis (chronic left shoulder pain - seen by ortho on several occasions & followed by pain management) - Past Surgical History Past Surgical History: Yes: None, Joint Replacement - Smoking History Smoking history: Never smoked Have you smoked in the past 12 months: No - Alcohol/Substance Use Hx Alcohol Use: No History of Substance Use: reports: None - Social History Usual Living Arrangement: Yes: Assisted Living ADL: Support Services History of Recent Travel: No Home Medications - Allergies Allergies/Adverse Reactions: Allergies Allergy/AdvReac Type Severity Reaction Status Date / Time amoxicillin Allergy Verified 06/29/19 11:39 chlorhexidine Allergy Verified 06/29/19 11:39 ciprofloxacin [From Cipro] Allergy Verified 06/29/19 11:39 codeine Allergy Verified 06/29/19 11:39 Quinolones Allergy Verified 06/29/19 11:39 Sulfa (Sulfonamide Allergy Verified 06/29/19 11:39 Antibiotics) sulfamethoxazole Allergy Verified 06/29/19 11:39 [From Bactrim] trimethoprim [From Bactrim] Allergy Verified 06/29/19 11:39 - Home Medications Home Medications: Ambulatory Orders Furosemide 40 mg PO DAILY 04/16/18 Acetaminophen [Tylenol .Regular Strength -] 650 mg PO Q6H PRN tablet 05/12/18 Albuterol 2.5/Ipratropium 0.5 [Duoneb -] 1 amp NEB RQID amp 05/12/18 Apixaban [Eliquis] 5 mg PO BID 06/29/19 Aspirin 81 mg PO DAILY 06/29/19 Atorvastatin Ca [Lipitor] 80 mg PO HS 06/29/19 Desvenlafaxine [Desvenlafaxine ER] 50 mg PO AM 06/29/19 Iron Polysaccharide Complex [Ferrex 150] 150 mg PO DAILY 06/29/19 Levothyroxine [Synthroid -] 50 mcg PO DAILY 06/29/19 Lipase/Protease/Amylase [Mulugeta Dr 36,000 Units Capsule] 2 each PO ASDIR Lisinopril 10 mg PO AM 06/29/19 Omeprazole 20 mg PO BID 06/29/19 Oxybutynin Chloride 5 mg PO AM 06/29/19 Sitagliptin Phos/Metformin HCl [Janumet 50-1,000 mg Tablet] 1 each PO AM Spironolactone 25 mg PO DAILY 06/29/19 traZODone HCL [Trazodone HCl] 50 mg PO HS 06/29/19 Review of Systems - Review of Systems Constitutional: reports: No Symptoms. denies: Chills, Fever, Night Sweats, Unintentional Wgt. Loss Eyes: reports: No Symptoms HENT: reports: No Symptoms Neck: reports: No Symptoms Cardiovascular: reports: Shortness of Breath. denies: Chest Pain Respiratory: reports: Cough, Exercise Intolerance, SOB, SOB on Exertion, Wheezing Gastrointestinal: reports: No Symptoms Genitourinary: reports: No Symptoms Breasts: reports: No Symptoms Reported Musculoskeletal: reports: Back Pain, Decreased ROM (bilateral shoulders), Joint Pain, Muscle Weakness Integumentary: reports: No Symptoms Neurological: reports: Confusion, Pre-Existing Deficit, Unsteady Gait Endocrine: reports: No Symptoms Hematology/Lymphatic: reports: No Symptoms Psychiatric: reports: Anxiety, Depression, Paranoia Physical Examination Vital Signs: Vital Signs Temperature 97.8 F 06/29/19 11:37 Pulse Rate 91 H 06/29/19 15:15 Respiratory Rate 21 H 06/29/19 15:15 Blood Pressure 133/53 L 06/29/19 15:15 O2 Sat by Pulse Oximetry (%) 95 06/29/19 15:15 Labs: CBC, BMP 06/29/19 11:49 06/29/19 11:49 Problem List - Problems (1) COPD exacerbation Problems reviewed: Yes Code(s): J44.1 - CHRONIC OBSTRUCTIVE PULMONARY DISEASE W (ACUTE) EXACERBATION (2) Cardiomegaly Problems reviewed: Yes Code(s): I51.7 - CARDIOMEGALY (3) Cough Problems reviewed: Yes Code(s): R05 - COUGH (4) Diabetes mellitus type 2 in obese Problems reviewed: Yes Code(s): E11.69 - TYPE 2 DIABETES MELLITUS WITH OTHER SPECIFIED COMPLICATION; E66.9 - OBESITY, UNSPECIFIED (5) HTN (hypertension) Code(s): I10 - ESSENTIAL (PRIMARY) HYPERTENSION (6) Shortness of breath Code(s): R06.02 - SHORTNESS OF BREATH
[2019-06-29] MEDS ORDERED: LIPASE/PROTEASE/AMYLASE 36,000 UNIT CAPSULE PO SCH (17:00)
[2019-06-29] MEDS ORDERED: ALBUTEROL SO4 2.5/IPRATROPIUM 0.5 INH SOL 3 ML VIAL.NEB. NEB PRN (17:05)
[2019-06-29] MEDS ORDERED: methylPREDNISolone NA SUCC 40 MG/1 ML VIAL ONE (17:58)
[2019-06-29] MEDS: methylPREDNISolone NA SUCC 40 MG/1 ML VIAL IVPUSH SCH (18:01)
[2019-06-29] MEDS: ALBUTEROL SO4 2.5/IPRATROPIUM 0.5 INH SOL 3 ML VIAL.NEB. NEB SCH (21:53)
[2019-06-29] MEDS: ACETAMINOPHEN 325 MG TABLET (FP) PO SCH (22:41)
[2019-06-29] MEDS: ATORVASTATIN CA 80 MG TABLET (FP) PO SCH (22:41)
[2019-06-29] MEDS: traZODone HCL 50 MG TABLET (FP) PO SCH (22:41)
[2019-06-29] MEDS: APIXABAN 5 MG TABLET PO SCH (22:41)
[2019-06-29] MEDS: INSULIN SLIDING SCALE (NOVOLOG) 1 VIAL SQ SCH (22:41)
[2019-06-29 22:48] VITALS: BMI 32.9
[2019-06-29] MEDS: BUDESONIDE/FORMETEROL FUMARATE 80/4.5 mcg INHALER IH SCH (23:03)
[2019-06-29] MEDS ORDERED: PT OWN MED DRAWER 7, Y5N ONE (23:07)
[2019-06-30] MEDS: methylPREDNISolone NA SUCC 40 MG/1 ML VIAL IVPUSH SCH ×3 (01:30→18:01)
[2019-06-30] MEDS ORDERED: PT OWN MED DRAWER 7, Y5N ONE ×4 (04:59→13:41)
[2019-06-30] MEDS: ACETAMINOPHEN 325 MG TABLET (FP) PO SCH ×3 (06:29→21:42)
[2019-06-30] MEDS: LEVOTHYROXINE NA 50 MCG TABLET (FP) PO SCH (06:30)
[2019-06-30] MEDS: LISINOPRIL 10 MG TABLET (FP) PO SCH (06:30)
[2019-06-30] MEDS: OXYBUTYNIN CHLORIDE 5 MG TABLET PO SCH (06:30)
[2019-06-30] MEDS: INSULIN SLIDING SCALE (NOVOLOG) 1 VIAL SQ SCH ×4 (06:30→21:42)
[2019-06-30] MEDS ORDERED: metFORMIN HCL 500 MG TABLET (FP) PO SCH (07:00)
[2019-06-30] MEDS: ALBUTEROL SO4 2.5/IPRATROPIUM 0.5 INH SOL 3 ML VIAL.NEB. NEB SCH ×4 (07:35→20:40)
[2019-06-30 08:19] LABS: HEMATOCRIT 30.3 % (32.4-45.2); HEMOGLOBIN 10.1 GM/dL (10.7-15.3); MCH 33.4 pg (25.7-33.7); MCHC 33.4 g/dl (32.0-36.0); MEAN CELL VOLUME 100.2 fl (80-96); MEAN PLT VOLUME 8.2 fl (7.5-11.1); PLATELET COUNT 247 K/MM3 (134-434); RBC 3.02 M/mm3 (3.60-5.2); RDW 15.3 % (11.6-15.6); WHITE BLOOD COUNT 9.8 K/mm3 (4.0-10.0)
[2019-06-30 09:07] LABS: CREATININE 1.3 mg/dL (0.55-1.3); MAGNESIUM 2.2 mg/dL (1.8-2.4); POTASSIUM 4.5 mmol/L (3.5-5.1)
[2019-06-30] MEDS: ASPIRIN 81 MG CHEWABLE TABLETS PO SCH (11:50)
[2019-06-30] MEDS: APIXABAN 5 MG TABLET PO SCH ×2 (11:50→21:42)
[2019-06-30] MEDS: PANTOPRAZOLE 40 MG TABLET (FP) PO SCH (11:50)
[2019-06-30] MEDS: FUROSEMIDE 40 MG/4 ML INJECTABLE VIAL IVPUSH SCH (11:50)
[2019-06-30] MEDS: SPIRONOLACTONE 25 MG TABLET (FP) PO SCH (11:50)
[2019-06-30] MEDS: BUDESONIDE/FORMETEROL FUMARATE 80/4.5 mcg INHALER IH SCH ×2 (11:54→21:43)
[2019-06-30] MEDS: POLYETHYLENE GLYCOL 3350 119 GM BTL PO SCH (12:03)
[2019-06-30] MEDS: IRON POLYSACCHARIDES 150 MG CAPSULE PO SCH (13:43)
[2019-06-30] MEDS: ATORVASTATIN CA 80 MG TABLET (FP) PO SCH (21:42)
[2019-06-30] MEDS: traZODone HCL 50 MG TABLET (FP) PO SCH (21:42)
--- NOTE | 2019-06-30 23:33 | PN ---
Progress Note (short form) - Note Progress Note: Patient seen and examined in room was sleeping comfortably reports not feeling any better - " I still have a cough" She has had "a cough" for years At this time is hacking dry cough non productive Had recent hospitalization for same followed by [facility] -- no hx of fever or chills in recent past Vital Signs Period Temp Pulse Resp BP Sys/Fox Pulse Ox Last 24 Hr 98.1 F-98.8 F 77-98 20-20 109-144/46-96 96-96 neck - jvd heart s1/S2 Lungs mild wheezing on right mid field good air movement abd soft non tender ext - calf tenderness / trace edema CBC, BMP 06/30/19 07:25 06/30/19 07:[address] reviewed partial atelectasis and possible bronchiectasis right middle lobe ill defined ground glass opacity medial left apical region Active Medications Acetaminophen (Tylenol -) 650 mg PO TID [facility] Stop: 07/02/19 23:59 Last Admin: 06/30/19 21:42 Dose: 650 mg Albuterol/Ipratropium (Duoneb -) 1 amp NEB RQID SHAHEEN Last Admin: 06/30/19 20:40 Dose: 1 amp Albuterol/Ipratropium (Duoneb -) 1 amp NEB Q4H PRN PRN Reason: SHORTNESS OF BREATH Apixaban (Eliquis -) 5 mg PO BID [facility] Last Admin: 06/30/19 21:42 Dose: 5 mg Aspirin (Asa -) 81 mg PO DAILY [facility] Last Admin: 06/30/19 11:50 Dose: 81 mg Atorvastatin Calcium (Lipitor -) 80 mg PO HS [facility] Last Admin: 06/30/19 21:42 Dose: 80 mg Budesonide/Formoterol Fumarate (Symbicort 80/4.5mcg -) 2 puff IH BID [facility] Last Admin: 06/30/19 21:43 Dose: 2 puff Furosemide (Lasix Injection -) 40 mg IVPUSH DAILY [facility] Last Admin: 06/30/19 11:50 Dose: 40 mg Insulin Aspart (Novolog Vial Sliding Scale -) 1 vial SQ ACHS SHAHEEN; Protocol Last Admin: 06/30/19 21:42 Dose: 2 units Levothyroxine Sodium (Synthroid -) 50 mcg PO AM [facility] Last Admin: 06/30/19 06:30 Dose: 50 mcg Lisinopril (Prinivil) 10 mg PO AM [facility] Last Admin: 06/30/19 06:30 Dose: 10 mg Methylprednisolone Sodium Succinate (Solu-Medrol -) 40 mg IVPUSH Q8H-IV [facility] Last Admin: 06/30/19 18:01 Dose: 40 mg Non-Formulary Medication (Desvenlafaxine [Desvenlafaxine Er]) 50 mg PO AM [facility] Oxybutynin Chloride (Ditropan -) 5 mg PO AM [facility] Last Admin: 06/30/19 06:30 Dose: 5 mg Pancrelipase (Creon Dr 36,000 Units Capsule) 2 cap PO ASDIR [facility] Pantoprazole Sodium (Protonix -) 40 mg PO DAILY [facility] Last Admin: 06/30/19 11:50 Dose: 40 mg Polyethylene Glycol (Miralax (For Daily Use) -) 17 gm PO DAILY [facility] Last Admin: 06/30/19 12:03 Dose: 17 gm Polysaccharide Iron Complex (Niferex-150 -) 150 mg PO DAILY [facility] Last Admin: 06/30/19 13:43 Dose: 150 mg Sitagliptin Phosphate (Januvia -) 100 mg PO DAILY@0700 [facility] Last Admin: 06/30/19 06:30 Dose: 100 mg Spironolactone (Aldactone -) 25 mg PO DAILY [facility] Last Admin: 06/30/19 11:50 Dose: 25 mg Trazodone HCl (Desyrel -) 50 mg PO HS [facility] Last Admin: 06/30/19 21:42 Dose: 50 mg # COPD exac steroids / inh / PPi / mucinex has remained afebrile and no reported chills patient known to be non compliant with Inh at residence CT of chest - will request Pulmonary opinion # HTN well controlled with current meds as out patint # DM tolerates current meds well last A1c 7.0 Problem List - Problems (1) COPD exacerbation Code(s): J44.1 - CHRONIC OBSTRUCTIVE PULMONARY DISEASE W (ACUTE) EXACERBATION (2) Cardiomegaly Code(s): I51.7 - CARDIOMEGALY (3) Cough Code(s): R05 - COUGH (4) Diabetes mellitus type 2 in obese Code(s): E11.69 - TYPE 2 DIABETES MELLITUS WITH OTHER SPECIFIED COMPLICATION; E66.9 - OBESITY, UNSPECIFIED (5) HTN (hypertension) Code(s): I10 - ESSENTIAL (PRIMARY) HYPERTENSION (6) Shortness of breath Code(s): R06.02 - SHORTNESS OF BREATH
[2019-07-01] MEDS: methylPREDNISolone NA SUCC 40 MG/1 ML VIAL IVPUSH SCH ×3 (01:42→17:10)
[2019-07-01] MEDS ORDERED: PT OWN MED DRAWER 7, Y5N ONE ×3 (05:25→17:30)
[2019-07-01] MEDS: ACETAMINOPHEN 325 MG TABLET (FP) PO SCH ×3 (05:58→22:13)
[2019-07-01] MEDS: OXYBUTYNIN CHLORIDE 5 MG TABLET PO SCH (06:00)
[2019-07-01] MEDS: LEVOTHYROXINE NA 50 MCG TABLET (FP) PO SCH (06:00)
[2019-07-01] MEDS: INSULIN SLIDING SCALE (NOVOLOG) 1 VIAL SQ SCH ×4 (06:00→22:07)
[2019-07-01] MEDS: LISINOPRIL 10 MG TABLET (FP) PO SCH (06:00)
[2019-07-01] MEDS: ALBUTEROL SO4 2.5/IPRATROPIUM 0.5 INH SOL 3 ML VIAL.NEB. NEB SCH ×4 (07:06→20:16)
[2019-07-01 09:02] LABS: BASO % 0.4 % (0-2.0); HEMATOCRIT 30.2 % (32.4-45.2); HEMOGLOBIN 10.1 GM/dL (10.7-15.3); LYMPH % 3.2 % (8-40); MCH 33.5 pg (25.7-33.7); MCHC 33.4 g/dl (32.0-36.0); MEAN CELL VOLUME 100.5 fl (80-96); MEAN PLT VOLUME 8.3 fl (7.5-11.1); MONO % 2.1 % (3.8-10.2); NEUT % 94.3 % (42.8-82.8); PLATELET COUNT 250 K/MM3 (134-434); RDW 15.6 % (11.6-15.6); WHITE BLOOD COUNT 13.2 K/mm3 (4.0-10.0)
[2019-07-01 09:34] LABS: BLOOD UREA NITROGEN 47.4 mg/dL (7-18); CREATININE 1.3 mg/dL (0.55-1.3); POTASSIUM 5.2 mmol/L (3.5-5.1)
[2019-07-01] MEDS: PANTOPRAZOLE 40 MG TABLET (FP) PO SCH (10:56)
[2019-07-01] MEDS: SPIRONOLACTONE 25 MG TABLET (FP) PO SCH (10:56)
[2019-07-01] MEDS: APIXABAN 5 MG TABLET PO SCH ×2 (10:56→22:11)
[2019-07-01] MEDS: FUROSEMIDE 40 MG/4 ML INJECTABLE VIAL IVPUSH SCH (10:57)
[2019-07-01] MEDS: ASPIRIN 81 MG CHEWABLE TABLETS PO SCH (10:57)
[2019-07-01] MEDS: POLYETHYLENE GLYCOL 3350 119 GM BTL PO SCH (10:59)
[2019-07-01] MEDS: guaiFENesin 600 MG TABLET.ER (FP) PO SCH ×2 (11:00→22:10)
[2019-07-01] MEDS: BUDESONIDE/FORMETEROL FUMARATE 80/4.5 mcg INHALER IH SCH ×2 (11:02→22:12)
--- NOTE | 2019-07-01 11:11 | PN ---
Progress Note (short form) - Note Progress Note: Patient seen and examined in room had breakfast / I am coughing ! Vital Signs Period Temp Pulse Resp BP Sys/Fox Pulse Ox Last 24 Hr 98.1 F-98.8 F 77-98 20-20 109-144/46-96 96-96 neck - jvd heart s1/S2 Lungs rhonchi on right mid field good air movement abd soft non tender ext - calf tenderness / trace edema CBC, BMP 07/01/19 08:27 07/01/19 08:27 CBC, BMP 06/30/19 07:25 06/30/19 07:[address] reviewed partial atelectasis and possible bronchiectasis right middle lobe ill defined ground glass opacity medial left apical region Active Medications Acetaminophen (Tylenol -) 650 mg PO TID [facility] Stop: 07/02/19 23:59 Last Admin: 07/01/19 05:58 Dose: Not Given Albuterol/Ipratropium (Duoneb -) 1 amp NEB RQID [facility] Last Admin: 07/01/19 07:06 Dose: 1 amp Albuterol/Ipratropium (Duoneb -) 1 amp NEB Q4H PRN PRN Reason: SHORTNESS OF BREATH Apixaban (Eliquis -) 5 mg PO BID [facility] Last Admin: 07/01/19 10:56 Dose: 5 mg Aspirin (Asa -) 81 mg PO DAILY [facility] Last Admin: 07/01/19 10:57 Dose: 81 mg Atorvastatin Calcium (Lipitor -) 80 mg PO HS [facility] Last Admin: 06/30/19 21:42 Dose: 80 mg Budesonide/Formoterol Fumarate (Symbicort 80/4.5mcg -) 2 puff IH BID [facility] Last Admin: 07/01/19 11:02 Dose: 2 puff Furosemide (Lasix Injection -) 40 mg IVPUSH DAILY [facility] Last Admin: 07/01/19 10:57 Dose: 40 mg Guaifenesin (Mucinex -) 600 mg PO BID [facility] Last Admin: 07/01/19 11:00 Dose: 600 mg Insulin Aspart (Novolog Vial Sliding Scale -) 1 vial SQ ACHS [facility]; Protocol Last Admin: 07/01/19 06:00 Dose: Not Given Levothyroxine Sodium (Synthroid -) 50 mcg PO AM [facility] Last Admin: 07/01/19 06:00 Dose: 50 mcg Lisinopril (Prinivil) 10 mg PO AM [facility] Last Admin: 07/01/19 06:00 Dose: 10 mg Methylprednisolone Sodium Succinate (Solu-Medrol -) 40 mg IVPUSH Q8H-IV [facility] Last Admin: 07/01/19 11:02 Dose: 40 mg Non-Formulary Medication (Desvenlafaxine [Desvenlafaxine Er]) 50 mg PO AM [facility] Oxybutynin Chloride (Ditropan -) 5 mg PO AM [facility] Last Admin: 07/01/19 06:00 Dose: 5 mg Pancrelipase (Creon Dr 36,000 Units Capsule) 2 cap PO ASDIR [facility] Pantoprazole Sodium (Protonix -) 40 mg PO DAILY [facility] Last Admin: 07/01/19 10:56 Dose: 40 mg Polyethylene Glycol (Miralax (For Daily Use) -) 17 gm PO DAILY [facility] Last Admin: 07/01/19 10:59 Dose: 17 gm Polysaccharide Iron Complex (Niferex-150 -) 150 mg PO DAILY [facility] Last Admin: 06/30/19 13:43 Dose: 150 mg Sitagliptin Phosphate (Januvia -) 100 mg PO DAILY@0700 [facility] Last Admin: 07/01/19 06:00 Dose: 100 mg Spironolactone (Aldactone -) 25 mg PO DAILY [facility] Last Admin: 07/01/19 10:56 Dose: 25 mg Trazodone HCl (Desyrel -) 50 mg PO HS [facility] Last Admin: 06/30/19 21:42 Dose: 50 mg # COPD exac steroids / inh / PPi / mucinex has remained afebrile and no reported chills patient known to be non compliant with Inh at residence CT of chest - request Pulmonary opinion # HTN well controlled with current meds as out patint # DM tolerates current meds well last A1c 7.0 Problem List - Problems (1) COPD exacerbation Code(s): J44.1 - CHRONIC OBSTRUCTIVE PULMONARY DISEASE W (ACUTE) EXACERBATION (2) Cardiomegaly Code(s): I51.7 - CARDIOMEGALY (3) Cough Code(s): R05 - COUGH (4) Diabetes mellitus type 2 in obese Code(s): E11.69 - TYPE 2 DIABETES MELLITUS WITH OTHER SPECIFIED COMPLICATION; E66.9 - OBESITY, UNSPECIFIED (5) HTN (hypertension) Code(s): I10 - ESSENTIAL (PRIMARY) HYPERTENSION (6) Shortness of breath Code(s): R06.02 - SHORTNESS OF BREATH
[2019-07-01] MEDS: IRON POLYSACCHARIDES 150 MG CAPSULE PO SCH (12:43)
[2019-07-01 13:52] LABS: ANISOCYTOSIS 1+; OVALOCYTE 1+; PLATELET ESTIMATE ADEQUATE; TARGET CELLS 1+
--- NOTE | 2019-07-01 13:58 | PN ---
Progress Note (short form) - Note Progress Note: ID consult dictated imp/reccd 83 yo female admitted from [facility] where she has been residing for last 2 years reports 2 weeks of persistent cough no fevers no hemoptysis chest ct with atelectasis of RML no wbc count no sick contacts no travel chest ct with RML atelectasis suspect copd exacerbation continue steroids add zpak d/w pulmonary Problem List - Problems (1) COPD exacerbation Code(s): J44.1 - CHRONIC OBSTRUCTIVE PULMONARY DISEASE W (ACUTE) EXACERBATION (2) Persistent cough Code(s): R05 - COUGH
[2019-07-01] MEDS ORDERED: AZITHROMYCIN 250 MG TABLET PO ONE (14:05)
--- NOTE | 2019-07-01 14:32 | CON.PULM ---
Consult Consult Specialty:: PULMONARY Referred by:: Dr Vidal Reason for Consultation:: COPD - History of Present Illness Chief Complaint: cough History of Present Illness: 83yo female with h/o HTN, hypothyroidism, COPD, LV diastolic dysfunction, atrial fibrillation, pulmonary HTN who was admitted from assisted living for shortness of breath and cough. Cough is nonproductive, denies fevers, chills or sweats. No chest pain or palpitations. Denies history of asthma or COPD. Was hospitalized last year for presumed COPD exacerbation. States she does feel some improvement with nebulizer treatments. CT chest done which shows RML atelectasis. 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 Cardio/Vascular: Yes: CAD, CHF, HTN Pulmonary: Yes: COPD Renal/: Yes: Renal Inusuff Psych: Yes: Anxiety, Depression, Psychosis Musculoskeletal: Yes: Osteoarthritis (chronic left shoulder pain - seen by ortho on several occasions & followed by pain management) - Past Surgical History Past Surgical History: Yes: None, Joint Replacement - Alcohol/Substance Use Hx Alcohol Use: No History of Substance Use: reports: None - Smoking History Smoking history: Never smoked Have you smoked in the past 12 months: No - Social History ADL: Support Services History of Recent Travel: No Home Medications - Allergies Allergies/Adverse Reactions: Allergies Allergy/AdvReac Type Severity Reaction Status Date / Time amoxicillin Allergy Verified 06/29/19 11:39 chlorhexidine Allergy Verified 06/29/19 11:39 ciprofloxacin [From Cipro] Allergy Verified 06/29/19 11:39 codeine Allergy Verified 06/29/19 11:39 Quinolones Allergy Verified 06/29/19 11:39 Sulfa (Sulfonamide Allergy Verified 06/29/19 11:39 Antibiotics) sulfamethoxazole Allergy Verified 06/29/19 11:39 [From Bactrim] trimethoprim [From Bactrim] Allergy Verified 06/29/19 11:39 - Home Medications Home Medications: Ambulatory Orders Furosemide 40 mg PO DAILY 04/16/18 Acetaminophen [Tylenol .Regular Strength -] 650 mg PO Q6H PRN tablet 05/12/18 Albuterol 2.5/Ipratropium 0.5 [Duoneb -] 1 amp NEB RQID amp 05/12/18 Apixaban [Eliquis] 5 mg PO BID 06/29/19 Aspirin 81 mg PO DAILY 06/29/19 Atorvastatin Ca [Lipitor] 80 mg PO HS 06/29/19 Desvenlafaxine [Desvenlafaxine ER] 50 mg PO AM 06/29/19 Iron Polysaccharide Complex [Ferrex 150] 150 mg PO DAILY 06/29/19 Levothyroxine [Synthroid -] 50 mcg PO DAILY 06/29/19 Lipase/Protease/Amylase [Mulugeta Carrizales 36,000 Units Capsule] 2 each PO ASDIR Lisinopril 10 mg PO AM 06/29/19 Omeprazole 20 mg PO BID 06/29/19 Oxybutynin Chloride 5 mg PO AM 06/29/19 Sitagliptin Phos/Metformin HCl [Janumet 50-1,000 mg Tablet] 1 each PO AM Spironolactone 25 mg PO DAILY 06/29/19 traZODone HCL [Trazodone HCl] 50 mg PO HS 06/29/19 Review of Systems - Review of Systems Constitutional: denies: Chills, Fever, Weakness Eyes: denies: Recent Change in Vision HENT: denies: Nasal Congestion, Throat Pain Neck: denies: Stiffness, Tenderness Cardiovascular: reports: Shortness of Breath. denies: Chest Pain, Edema Respiratory: reports: Cough, SOB Gastrointestinal: denies: Abdominal Pain, Nausea, Vomiting Genitourinary: denies: Dysuria, Hematuria Neurological: denies: Dizziness, Headache Endocrine: denies: Unexplained Weight Loss Physical Exam Vital Sings: Vital Signs Temperature 98.8 F 07/01/19 06:39 Pulse Rate 80 07/01/19 06:39 Respiratory Rate 20 07/01/19 06:39 Blood Pressure 124/46 L 07/01/19 06:39 O2 Sat by Pulse Oximetry (%) 96 06/30/19 23:36 Constitutional: Yes: Calm Eyes: Yes: Conjunctiva Clear, EOM Intact HENT: Yes: Atraumatic, Normocephalic Neck: Yes: Supple, Trachea Midline Cardiovascular: Yes: Regular Rate and Rhythm Respiratory: Yes: Rhonchi, Wheezes ...Clubbing: No Gastrointestinal: Yes: Normal Bowel Sounds, Soft. No: Tenderness Edema: No Neurological: Yes: Alert, Confusion Labs: CBC, BMP 07/01/19 08:27 07/01/19 08:27 Imaging - Results Cat Scan: Report Reviewed, Image Reviewed (RML atelectasis) Problem List - Problems (1) COPD exacerbation Code(s): J44.1 - CHRONIC OBSTRUCTIVE PULMONARY DISEASE W (ACUTE) EXACERBATION (2) Acute bronchitis Code(s): J20.9 - ACUTE BRONCHITIS, UNSPECIFIED (3) Atelectasis Code(s): J98.11 - ATELECTASIS Assessment/Plan Acute COPD Exacerbation Acute Bronchitis RML Atelectasis LV Diastolic Dysfunction Atrial Fibrillation Pulmonary HTN HTN Hypothyroidism Dementia - agree with IV medrol - inhaled bronchodilators standing and PRN - on LABA - agree with azithromycin - CT findings more consistent with atelectasis rather than bronchiectasis - ? RML syndrome - will need outpt f/u of chest imaging in 2-3 months to reassess Thank you for this consult Marcello Hall MD
--- NOTE | 2019-07-01 17:35 | CONS ---
DATE OF CONSULTATION: DATE OF DICTATION: 07/01/2019 INFECTIOUS DISEASE CONSULTATION HISTORY OF PRESENT ILLNESS: This is an 83-year-old woman admitted from [facility], where she has been living for the last 2 years. She has a history of COPD and CHF in the past. She presents to the ER with complaints of shortness of breath and cough. She states she has had a cough now for the last 2 weeks. She denies any fevers or chills. She denies any hemoptysis. She has no nausea, vomiting, diarrhea, or dysuria. She denies any travel or sick contacts. ALLERGIES: She is allergic to multiple ANTIBIOTICS including AMOXICILLIN and QUINOLONES. She is allergic to BACTRIM. PAST MEDICAL HISTORY: Notable for hypertension, hypothyroidism, depression, and dementia. She has a history of coronary artery disease, CHF and COPD as well as renal insufficiency and anxiety. SURGICAL HISTORY: Notable for bilateral knee replacement and right shoulder replacement. SOCIAL HISTORY: [facility]. She has never smoked. 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 MEDICATION: Her medications at the snf include furosemide, oxybutynin, desvenlafaxine, spironolactone, lisinopril, Janumet, omeprazole, levothyroxine, trazodone, atorvastatin, Eliquis, iron, Creon, and aspirin. REVIEW OF SYSTEMS: As per HPI. FAMILY HISTORY: Not available. PHYSICAL EXAMINATION: General: She is a pleasant woman. She is awake and alert out of bed. Vital Signs: Temperature 98.8, pulse of 80, blood pressure 124/46, respiratory rate is 20, she weighs 93 kg. HEENT: Normocephalic. Eyes are anicteric. Neck: Supple. Lungs: Clear to auscultation. Heart: Regular rate and rhythm. Abdomen: Soft, nontender. Extremities: Trace edema. LABORATORY: Labs are notable for a white count of 13.2, but she is on steroids. Hemoglobin 10.1, platelets are 250. Her chemistries: BUN and creatinine are 47 and 1.3. No cultures have been sent. Chest CT reveals right middle lobe atelectasis. IMPRESSION: In summary, this is an 83-year-old woman with history of congestive heart failure, chronic obstructive pulmonary disease, admitted with chronic cough for 2 weeks. She has been started on steroids since June 29, states her cough is unchanged. Would discuss with pulmonary. Could consider adding oral Zithromax at this time for 5 days. DOMENIC LUCAS M.D. [id number]
[2019-07-01] MEDS: traZODone HCL 50 MG TABLET (FP) PO SCH (22:11)
[2019-07-01] MEDS: ATORVASTATIN CA 80 MG TABLET (FP) PO SCH (22:11)
[2019-07-02] MEDS ORDERED: MELATONIN 5 MG TABLETS PO ONE (00:15)
[2019-07-02] MEDS: methylPREDNISolone NA SUCC 40 MG/1 ML VIAL IVPUSH SCH ×3 (01:44→17:03)
[2019-07-02] MEDS ORDERED: PT OWN MED DRAWER 7, Y5N ONE (05:57)
[2019-07-02] MEDS: INSULIN SLIDING SCALE (NOVOLOG) 1 VIAL SQ SCH ×4 (06:07→21:10)
[2019-07-02] MEDS: ACETAMINOPHEN 325 MG TABLET (FP) PO SCH ×3 (06:07→21:11)
[2019-07-02] MEDS: LEVOTHYROXINE NA 50 MCG TABLET (FP) PO SCH (06:08)
[2019-07-02] MEDS: OXYBUTYNIN CHLORIDE 5 MG TABLET PO SCH (06:08)
[2019-07-02] MEDS: LISINOPRIL 10 MG TABLET (FP) PO SCH (06:08)
[2019-07-02] MEDS: ALBUTEROL SO4 2.5/IPRATROPIUM 0.5 INH SOL 3 ML VIAL.NEB. NEB SCH ×4 (07:45→19:53)
[2019-07-02] MEDS: PANTOPRAZOLE 40 MG TABLET (FP) PO SCH (09:02)
[2019-07-02] MEDS: FUROSEMIDE 40 MG/4 ML INJECTABLE VIAL IVPUSH SCH (09:02)
[2019-07-02] MEDS: APIXABAN 5 MG TABLET PO SCH ×2 (09:02→21:11)
[2019-07-02] MEDS: AZITHROMYCIN 250 MG TABLET PO SCH (09:02)
[2019-07-02] MEDS: guaiFENesin 600 MG TABLET.ER (FP) PO SCH ×2 (09:02→21:11)
[2019-07-02] MEDS: POLYETHYLENE GLYCOL 3350 119 GM BTL PO SCH (09:03)
[2019-07-02] MEDS: ASPIRIN 81 MG CHEWABLE TABLETS PO SCH (09:03)
[2019-07-02] MEDS: SPIRONOLACTONE 25 MG TABLET (FP) PO SCH (09:03)
[2019-07-02] MEDS: BUDESONIDE/FORMETEROL FUMARATE 80/4.5 mcg INHALER IH SCH ×2 (09:04→21:12)
[2019-07-02] MEDS: IRON POLYSACCHARIDES 150 MG CAPSULE PO SCH (09:04)
--- NOTE | 2019-07-02 09:05 | PN ---
Progress Note (short form) - Note Progress Note: Still with congested cough. Breathing feels about the same. No acute events overnight. Intake & Output 06/29/19 06/30/19 07/01/19 07/02/19 23:59 23:59 23:59 23:59 Intake Total 200 500 950 0 Balance 200 500 950 0 Weight 204 lb 204 lb 5 oz 205 lb 7 oz 206 lb 5 oz Last Vital Signs Temp Pulse Resp BP Pulse Ox 98.3 F 82 20 113/44 L 96 07/02/19 06:35 07/02/19 06:35 07/02/19 06:35 07/02/19 06:35 07/01/19 22:00 Active Medications Acetaminophen (Tylenol -) 650 mg PO TID [facility] Stop: 07/02/19 23:59 Last Admin: 07/02/19 06:07 Dose: 650 mg Albuterol/Ipratropium (Duoneb -) 1 amp NEB RQID [facility] Last Admin: 07/02/19 07:45 Dose: 1 amp Albuterol/Ipratropium (Duoneb -) 1 amp NEB Q4H PRN PRN Reason: SHORTNESS OF BREATH Apixaban (Eliquis -) 5 mg PO BID [facility] Last Admin: 07/01/19 22:11 Dose: 5 mg Aspirin (Asa -) 81 mg PO DAILY [facility] Last Admin: 07/01/19 10:57 Dose: 81 mg Atorvastatin Calcium (Lipitor -) 80 mg PO HS [facility] Last Admin: 07/01/19 22:11 Dose: 80 mg Azithromycin (Zithromax -) 250 mg PO DAILY [facility] Stop: 07/05/19 11:00 Budesonide/Formoterol Fumarate (Symbicort 80/4.5mcg -) 2 puff IH BID [facility] Last Admin: 07/01/19 22:12 Dose: 2 puff Furosemide (Lasix Injection -) 40 mg IVPUSH DAILY [facility] Last Admin: 07/01/19 10:57 Dose: 40 mg Guaifenesin (Mucinex -) 600 mg PO BID [facility] Last Admin: 07/01/19 22:10 Dose: 600 mg Insulin Aspart (Novolog Vial Sliding Scale -) 1 vial SQ ACHS [facility]; Protocol Last Admin: 07/02/19 06:07 Dose: Not Given Levothyroxine Sodium (Synthroid -) 50 mcg PO AM [facility] Last Admin: 07/02/19 06:08 Dose: 50 mcg Lisinopril (Prinivil) 10 mg PO AM [facility] Last Admin: 07/02/19 06:08 Dose: 10 mg Methylprednisolone Sodium Succinate (Solu-Medrol -) 40 mg IVPUSH Q8H-IV [facility] Last Admin: 07/02/19 01:44 Dose: 40 mg Non-Formulary Medication (Desvenlafaxine [Desvenlafaxine Er]) 50 mg PO AM [facility] Oxybutynin Chloride (Ditropan -) 5 mg PO AM [facility] Last Admin: 07/02/19 06:08 Dose: 5 mg Pancrelipase (Creon Dr 36,000 Units Capsule) 2 cap PO ASDIR [facility] Pantoprazole Sodium (Protonix -) 40 mg PO DAILY [facility] Last Admin: 07/01/19 10:56 Dose: 40 mg Polyethylene Glycol (Miralax (For Daily Use) -) 17 gm PO DAILY [facility] Last Admin: 07/01/19 10:59 Dose: 17 gm Polysaccharide Iron Complex (Niferex-150 -) 150 mg PO DAILY [facility] Last Admin: 07/01/19 12:43 Dose: 150 mg Sitagliptin Phosphate (Januvia -) 100 mg PO DAILY@0700 [facility] Last Admin: 07/02/19 06:08 Dose: 100 mg Spironolactone (Aldactone -) 25 mg PO DAILY [facility] Last Admin: 07/01/19 10:56 Dose: 25 mg Trazodone HCl (Desyrel -) 50 mg PO HS [facility] Last Admin: 07/01/19 22:11 Dose: 50 mg Constitutional: Yes: Awake and alert, congested cough noted, NAD Eyes: Yes: Conjunctiva Clear, EOM Intact HENT: Yes: Atraumatic, Normocephalic Neck: Yes: Supple, Trachea Midline Cardiovascular: Yes: Regular Rate and Rhythm Respiratory: Yes: Bilateral Rhonchi and Expiratory Wheezes ...Clubbing: No Gastrointestinal: Yes: Normal Bowel Sounds, Soft. No: Tenderness Edema: No Neurological: Yes: Alert, non-focal Labs: Laboratory Results - last 24 hr 07/01/19 07/01/19 07/01/19 08:27 08:27 12:40 WBC 13.2 H RBC 3.00 L Hgb 10.1 L Hct 30.2 L MCV 100.5 H MCH 33.5 MCHC 33.4 RDW 15.6 Plt Count 250 MPV 8.3 Absolute Neuts (auto) 12.4 H Total Counted 100 Neutrophils % 94.3 H D Neutrophils % (Manual) 95.0 H Band Neutrophils % 6.0 Lymphocytes % 3.2 L D Lymphocytes % (Manual) 3.0 L D Monocytes % 2.1 L D Monocytes % (Manual) 1 L Eosinophils % 0.0 D Basophils % 0.4 Nucleated RBC % 0 Hypochromia 1+ Platelet Estimate Adequate Platelet Comment No clumping noted Polychromasia 1+ Anisocytosis 1+ Microcytosis 1+ Target Cells 1+ Ovalocytes 1+ Sodium 140 Potassium 5.2 H Chloride 102 Carbon Dioxide 34 H Anion Gap 5 L BUN 47.4 H Creatinine 1.3 Est GFR (CKD-EPI)AfAm 43.63 Est GFR (CKD-EPI)NonAf 37.64 POC Glucometer 232 Random Glucose 177 H Calcium 9.0 07/01/19 07/01/19 07/02/19 17:07 22:06 06:06 WBC RBC Hgb Hct MCV MCH MCHC RDW Plt Count MPV Absolute Neuts (auto) Total Counted Neutrophils % Neutrophils % (Manual) Band Neutrophils % Lymphocytes % Lymphocytes % (Manual) Monocytes % Monocytes % (Manual) Eosinophils % Basophils % Nucleated RBC % Hypochromia Platelet Estimate Platelet Comment Polychromasia Anisocytosis Microcytosis Target Cells Ovalocytes Sodium Potassium Chloride Carbon Dioxide Anion Gap BUN Creatinine Est GFR (CKD-EPI)AfAm Est GFR (CKD-EPI)NonAf POC Glucometer 274 218 193 Random Glucose Calcium Problem List - Problems (1) COPD exacerbation Code(s): J44.1 - CHRONIC OBSTRUCTIVE PULMONARY DISEASE W (ACUTE) EXACERBATION (2) Acute bronchitis Code(s): J20.9 - ACUTE BRONCHITIS, UNSPECIFIED (3) Atelectasis Code(s): J98.11 - ATELECTASIS Assessment/Plan Acute COPD Exacerbation Acute Bronchitis RML Atelectasis LV Diastolic Dysfunction Atrial Fibrillation Pulmonary HTN HTN Hypothyroidism Dementia - IV medrol - inhaled bronchodilators standing and PRN - Azithromycin - CT findings more consistent with atelectasis rather than bronchiectasis - ? RML syndrome - will need outpt f/u of chest imaging in 2-[address] Coombs
--- NOTE | 2019-07-02 11:45 | PN ---
Progress Note (short form) - Note Progress Note: Patient seen and examined in room had breakfast / I am coughing ! Vital Signs Period Temp Pulse Resp BP Sys/Fox Pulse Ox Last 24 Hr 98.1 F-98.8 F 77-98 20-20 109-144/46-96 96-96 neck - jvd heart s1/S2 Lungs rhonchi on right mid field good air movement abd soft non tender ext - calf tenderness / trace edema CBC, BMP 07/01/19 08:27 07/01/19 08:27 CBC, BMP 06/30/19 07:25 06/30/19 07:[address] reviewed partial atelectasis and possible bronchiectasis right middle lobe ill defined ground glass opacity medial left apical region Active Medications Acetaminophen (Tylenol -) 650 mg PO TID [facility] Stop: 07/02/19 23:59 Last Admin: 07/02/19 06:07 Dose: 650 mg Albuterol/Ipratropium (Duoneb -) 1 amp NEB RQID [facility] Last Admin: 07/02/19 07:45 Dose: 1 amp Albuterol/Ipratropium (Duoneb -) 1 amp NEB Q4H PRN PRN Reason: SHORTNESS OF BREATH Apixaban (Eliquis -) 5 mg PO BID [facility] Last Admin: 07/02/19 09:02 Dose: 5 mg Aspirin (Asa -) 81 mg PO DAILY [facility] Last Admin: 07/02/19 09:03 Dose: 81 mg Atorvastatin Calcium (Lipitor -) 80 mg PO HS [facility] Last Admin: 07/01/19 22:11 Dose: 80 mg Azithromycin (Zithromax -) 250 mg PO DAILY [facility] Stop: 07/05/19 11:00 Last Admin: 07/02/19 09:02 Dose: 250 mg Budesonide/Formoterol Fumarate (Symbicort 80/4.5mcg -) 2 puff IH BID [facility] Last Admin: 07/02/19 09:04 Dose: 2 puff Furosemide (Lasix Injection -) 40 mg IVPUSH DAILY [facility] Last Admin: 07/02/19 09:02 Dose: 40 mg Guaifenesin (Mucinex -) 600 mg PO BID [facility] Last Admin: 07/02/19 09:02 Dose: 600 mg Insulin Aspart (Novolog Vial Sliding Scale -) 1 vial SQ ACHS [facility]; Protocol Last Admin: 12/12/19 06:07 Dose: Not Given Levothyroxine Sodium (Synthroid -) 50 mcg PO AM [facility] Last Admin: 07/02/19 06:08 Dose: 50 mcg Lisinopril (Prinivil) 10 mg PO AM [facility] Last Admin: 07/02/19 06:08 Dose: 10 mg Methylprednisolone Sodium Succinate (Solu-Medrol -) 40 mg IVPUSH Q8H-IV [facility] Last Admin: 07/02/19 09:01 Dose: 40 mg Non-Formulary Medication (Desvenlafaxine [Desvenlafaxine Er]) 50 mg PO AM [facility] Oxybutynin Chloride (Ditropan -) 5 mg PO AM [facility] Last Admin: 07/02/19 06:08 Dose: 5 mg Pancrelipase (Creon Dr 36,000 Units Capsule) 2 cap PO ASDIR [facility] Pantoprazole Sodium (Protonix -) 40 mg PO DAILY [facility] Last Admin: 07/02/19 09:02 Dose: 40 mg Polyethylene Glycol (Miralax (For Daily Use) -) 17 gm PO DAILY [facility] Last Admin: 07/02/19 09:03 Dose: 17 gm Polysaccharide Iron Complex (Niferex-150 -) 150 mg PO DAILY [facility] Last Admin: 07/02/19 09:04 Dose: 150 mg Sitagliptin Phosphate (Januvia -) 100 mg PO DAILY@0700 [facility] Last Admin: 07/02/19 06:08 Dose: 100 mg Spironolactone (Aldactone -) 25 mg PO DAILY [facility] Last Admin: 07/02/19 09:03 Dose: 25 mg Trazodone HCl (Desyrel -) 50 mg PO HS [facility] Last Admin: 07/01/19 22:11 Dose: 50 mg # COPD exac steroids / inh / PPi / mucinex pack added has remained afebrile and no reported chills patient known to be non compliant with Inh at residence CT of chest - request Pulmonary opinion # HTN well controlled with current meds as out patint # DM tolerates current meds well last A1c 7.0 Problem List - Problems (1) COPD exacerbation Code(s): J44.1 - CHRONIC OBSTRUCTIVE PULMONARY DISEASE W (ACUTE) EXACERBATION (2) Cardiomegaly Code(s): I51.7 - CARDIOMEGALY (3) Cough Code(s): R05 - COUGH (4) Diabetes mellitus type 2 in obese Code(s): E11.69 - TYPE 2 DIABETES MELLITUS WITH OTHER SPECIFIED COMPLICATION; E66.9 - OBESITY, UNSPECIFIED (5) HTN (hypertension) Code(s): I10 - ESSENTIAL (PRIMARY) HYPERTENSION (6) Shortness of breath Code(s): R06.02 - SHORTNESS OF BREATH
[2019-07-02] MEDS: ATORVASTATIN CA 80 MG TABLET (FP) PO SCH (21:11)
[2019-07-02] MEDS: traZODone HCL 50 MG TABLET (FP) PO SCH (21:11)
[2019-07-03] MEDS: ACETAMINOPHEN 325 MG TABLET (FP) PO SCH (02:28)
[2019-07-03] MEDS: methylPREDNISolone NA SUCC 40 MG/1 ML VIAL IVPUSH SCH ×3 (02:29→21:46)
[2019-07-03] MEDS ORDERED: PT OWN MED DRAWER 7, Y5N ONE ×2 (04:43→10:02)
[2019-07-03] MEDS: OXYBUTYNIN CHLORIDE 5 MG TABLET PO SCH (06:10)
[2019-07-03] MEDS: LEVOTHYROXINE NA 50 MCG TABLET (FP) PO SCH (06:11)
[2019-07-03] MEDS: LISINOPRIL 10 MG TABLET (FP) PO SCH (06:11)
[2019-07-03] MEDS: INSULIN SLIDING SCALE (NOVOLOG) 1 VIAL SQ SCH ×4 (06:11→21:45)
[2019-07-03] MEDS: ALBUTEROL SO4 2.5/IPRATROPIUM 0.5 INH SOL 3 ML VIAL.NEB. NEB SCH ×4 (08:07→20:15)
[2019-07-03] MEDS: AZITHROMYCIN 250 MG TABLET PO SCH (10:06)
[2019-07-03] MEDS: SPIRONOLACTONE 25 MG TABLET (FP) PO SCH (10:06)
[2019-07-03] MEDS: PANTOPRAZOLE 40 MG TABLET (FP) PO SCH (10:06)
[2019-07-03] MEDS: APIXABAN 5 MG TABLET PO SCH ×2 (10:07→21:45)
[2019-07-03] MEDS: FUROSEMIDE 40 MG/4 ML INJECTABLE VIAL IVPUSH SCH (10:07)
[2019-07-03] MEDS: guaiFENesin 600 MG TABLET.ER (FP) PO SCH ×2 (10:07→21:45)
[2019-07-03] MEDS: ASPIRIN 81 MG CHEWABLE TABLETS PO SCH (10:07)
[2019-07-03] MEDS: IRON POLYSACCHARIDES 150 MG CAPSULE PO SCH (10:07)
--- NOTE | 2019-07-03 11:09 | PN ---
Progress Note (short form) - Note Progress Note: Patient seen and examined in room had breakfast / I am coughing ! Vital Signs Period Temp Pulse Resp BP Sys/Fox Pulse Ox Last 24 Hr 98.1 F-98.8 F 77-98 20-20 109-144/46-96 96-96 neck - jvd heart s1/S2 Lungs rhonchi on right mid field good air movement abd soft non tender ext - calf tenderness / trace edema CBC, BMP 07/01/19 08:27 07/01/19 08:27 CBC, BMP 06/30/19 07:25 06/30/19 07:[address] reviewed partial atelectasis and possible bronchiectasis right middle lobe ill defined ground glass opacity medial left apical region Active Medications Acetaminophen (Tylenol -) 650 mg PO TID [facility] Stop: 07/02/19 23:59 Last Admin: 07/02/19 06:07 Dose: 650 mg Albuterol/Ipratropium (Duoneb -) 1 amp NEB RQID [facility] Last Admin: 07/02/19 07:45 Dose: 1 amp Albuterol/Ipratropium (Duoneb -) 1 amp NEB Q4H PRN PRN Reason: SHORTNESS OF BREATH Apixaban (Eliquis -) 5 mg PO BID [facility] Last Admin: 07/02/19 09:02 Dose: 5 mg Aspirin (Asa -) 81 mg PO DAILY [facility] Last Admin: 07/02/19 09:03 Dose: 81 mg Atorvastatin Calcium (Lipitor -) 80 mg PO HS [facility] Last Admin: 07/01/19 22:11 Dose: 80 mg Azithromycin (Zithromax -) 250 mg PO DAILY [facility] Stop: 07/05/19 11:00 Last Admin: 07/02/19 09:02 Dose: 250 mg Budesonide/Formoterol Fumarate (Symbicort 80/4.5mcg -) 2 puff IH BID [facility] Last Admin: 07/02/19 09:04 Dose: 2 puff Furosemide (Lasix Injection -) 40 mg IVPUSH DAILY [facility] Last Admin: 07/02/19 09:02 Dose: 40 mg Guaifenesin (Mucinex -) 600 mg PO BID [facility] Last Admin: 07/02/19 09:02 Dose: 600 mg Insulin Aspart (Novolog Vial Sliding Scale -) 1 vial SQ ACHS [facility]; Protocol Last Admin: 12/12/19 06:07 Dose: Not Given Levothyroxine Sodium (Synthroid -) 50 mcg PO AM [facility] Last Admin: 07/02/19 06:08 Dose: 50 mcg Lisinopril (Prinivil) 10 mg PO AM [facility] Last Admin: 07/02/19 06:08 Dose: 10 mg Methylprednisolone Sodium Succinate (Solu-Medrol -) 40 mg IVPUSH Q8H-IV [facility] Last Admin: 07/02/19 09:01 Dose: 40 mg Non-Formulary Medication (Desvenlafaxine [Desvenlafaxine Er]) 50 mg PO AM [facility] Oxybutynin Chloride (Ditropan -) 5 mg PO AM [facility] Last Admin: 07/02/19 06:08 Dose: 5 mg Pancrelipase (Creon Dr 36,000 Units Capsule) 2 cap PO ASDIR [facility] Pantoprazole Sodium (Protonix -) 40 mg PO DAILY [facility] Last Admin: 07/02/19 09:02 Dose: 40 mg Polyethylene Glycol (Miralax (For Daily Use) -) 17 gm PO DAILY [facility] Last Admin: 07/02/19 09:03 Dose: 17 gm Polysaccharide Iron Complex (Niferex-150 -) 150 mg PO DAILY [facility] Last Admin: 07/02/19 09:04 Dose: 150 mg Sitagliptin Phosphate (Januvia -) 100 mg PO DAILY@0700 [facility] Last Admin: 07/02/19 06:08 Dose: 100 mg Spironolactone (Aldactone -) 25 mg PO DAILY [facility] Last Admin: 07/02/19 09:03 Dose: 25 mg Trazodone HCl (Desyrel -) 50 mg PO HS [facility] Last Admin: 07/01/19 22:11 Dose: 50 mg # COPD exac steroids / inh / PPi / mucinex pack added taper steroids has remained afebrile and no reported chills patient known to be non compliant with Inh at residence CT of chest - request Pulmonary opinion # HTN well controlled with current meds as out patint # DM tolerates current meds well last A1c 7.0 Problem List - Problems (1) COPD exacerbation Code(s): J44.1 - CHRONIC OBSTRUCTIVE PULMONARY DISEASE W (ACUTE) EXACERBATION (2) Cardiomegaly Code(s): I51.7 - CARDIOMEGALY (3) Cough Code(s): R05 - COUGH (4) Diabetes mellitus type 2 in obese Code(s): E11.69 - TYPE 2 DIABETES MELLITUS WITH OTHER SPECIFIED COMPLICATION; E66.9 - OBESITY, UNSPECIFIED (5) HTN (hypertension) Code(s): I10 - ESSENTIAL (PRIMARY) HYPERTENSION (6) Shortness of breath Code(s): R06.02 - SHORTNESS OF BREATH
--- NOTE | 2019-07-03 13:43 | PN ---
Progress Note, Physician History of Present Illness: pulmonary alert,oob-chair,c/o cough,less dyspneic - Current Medication List Current Medications: Active Medications Albuterol/Ipratropium (Duoneb -) 1 amp NEB RQID [facility] Last Admin: 07/03/19 12:18 Dose: 1 amp Albuterol/Ipratropium (Duoneb -) 1 amp NEB Q4H PRN PRN Reason: SHORTNESS OF BREATH Apixaban (Eliquis -) 5 mg PO BID [facility] Last Admin: 07/03/19 10:07 Dose: 5 mg Aspirin (Asa -) 81 mg PO DAILY [facility] Last Admin: 07/03/19 10:07 Dose: 81 mg Atorvastatin Calcium (Lipitor -) 80 mg PO HS [facility] Last Admin: 07/02/19 21:11 Dose: 80 mg Azithromycin (Zithromax -) 250 mg PO DAILY [facility] Stop: 07/05/19 11:00 Last Admin: 07/03/19 10:06 Dose: 250 mg Budesonide/Formoterol Fumarate (Symbicort 80/4.5mcg -) 2 puff IH BID [facility] Last Admin: 07/02/19 21:12 Dose: 2 puff Furosemide (Lasix Injection -) 40 mg IVPUSH DAILY [facility] Last Admin: 07/03/19 10:07 Dose: 40 mg Guaifenesin (Mucinex -) 600 mg PO BID [facility] Last Admin: 07/03/19 10:07 Dose: 600 mg Insulin Aspart (Novolog Vial Sliding Scale -) 1 vial SQ ACHS [facility]; Protocol Last Admin: 07/03/19 12:47 Dose: 8 units Levothyroxine Sodium (Synthroid -) 50 mcg PO AM [facility] Last Admin: 07/03/19 06:11 Dose: 50 mcg Lisinopril (Prinivil) 10 mg PO AM [facility] Last Admin: 07/03/19 06:11 Dose: 10 mg Methylprednisolone Sodium Succinate (Solu-Medrol -) 40 mg IVPUSH BID [facility] Non-Formulary Medication (Desvenlafaxine [Desvenlafaxine Er]) 50 mg PO AM [facility] Oxybutynin Chloride (Ditropan -) 5 mg PO AM [facility] Last Admin: 07/03/19 06:10 Dose: 5 mg Pancrelipase (Creon Dr 36,000 Units Capsule) 2 cap PO ASDIR [facility] Pantoprazole Sodium (Protonix -) 40 mg PO DAILY [facility] Last Admin: 07/03/19 10:06 Dose: 40 mg Polyethylene Glycol (Miralax (For Daily Use) -) 17 gm PO DAILY [facility] Last Admin: 07/02/19 09:03 Dose: 17 gm Polysaccharide Iron Complex (Niferex-150 -) 150 mg PO DAILY [facility] Last Admin: 07/03/19 10:07 Dose: 150 mg Sitagliptin Phosphate (Januvia -) 100 mg PO DAILY@0700 [facility] Last Admin: 07/03/19 06:10 Dose: 100 mg Spironolactone (Aldactone -) 25 mg PO DAILY [facility] Last Admin: 07/03/19 10:06 Dose: 25 mg Trazodone HCl (Desyrel -) 50 mg PO HS [facility] Last Admin: 07/02/19 21:11 Dose: 50 mg - Objective Vital Signs: Vital Signs Temperature 98.2 F 07/03/19 07:00 Pulse Rate 73 07/03/19 07:00 Respiratory Rate 24 H 07/03/19 10:00 Blood Pressure 115/66 07/03/19 07:00 O2 Sat by Pulse Oximetry (%) 98 07/03/19 10:00 Constitutional: Yes: Well Nourished, Calm Eyes: Yes: WNL HENT: Yes: WNL Neck: Yes: WNL Cardiovascular: Yes: Regular Rate and Rhythm, S1, S2 Respiratory: Yes: Rhonchi (few rhonchi) Gastrointestinal: Yes: Normal Bowel Sounds, Soft Extremities: Yes: WNL Edema: Yes Labs: CBC, BMP Assessment/Plan Problem List - Problems (1) COPD exacerbation Code(s): J44.1 - CHRONIC OBSTRUCTIVE PULMONARY DISEASE W (ACUTE) EXACERBATION (2) Acute bronchitis Code(s): J20.9 - ACUTE BRONCHITIS, UNSPECIFIED (3) Atelectasis Code(s): J98.11 - ATELECTASIS Assessment/Plan Acute COPD Exacerbation improving Acute Bronchitis RML Atelectasis LV Diastolic Dysfunction Atrial Fibrillation Pulmonary HTN HTN Hypothyroidism Dementia - IV medrol same dose - inhaled bronchodilators standing and PRN - Azithromycin - CT findings more consistent with atelectasis rather than bronchiectasis - ? RML syndrome - will need outpt f/u of chest imaging in 2-[address] HUERTAS
[2019-07-03] MEDS: BUDESONIDE/FORMETEROL FUMARATE 80/4.5 mcg INHALER IH SCH ×2 (15:24→21:46)
[2019-07-03] MEDS: POLYETHYLENE GLYCOL 3350 119 GM BTL PO SCH ×2 (15:24→15:26)
[2019-07-03] MEDS: traZODone HCL 50 MG TABLET (FP) PO SCH (21:45)
[2019-07-03] MEDS: ATORVASTATIN CA 80 MG TABLET (FP) PO SCH (21:45)
[2019-07-04] MEDS: OXYBUTYNIN CHLORIDE 5 MG TABLET PO SCH (07:08)
[2019-07-04] MEDS: INSULIN SLIDING SCALE (NOVOLOG) 1 VIAL SQ SCH ×4 (07:08→21:35)
[2019-07-04] MEDS: LEVOTHYROXINE NA 50 MCG TABLET (FP) PO SCH (07:09)
[2019-07-04] MEDS: LISINOPRIL 10 MG TABLET (FP) PO SCH (07:09)
[2019-07-04] MEDS: ALBUTEROL SO4 2.5/IPRATROPIUM 0.5 INH SOL 3 ML VIAL.NEB. NEB SCH ×4 (07:41→20:20)
[2019-07-04 08:12] LABS: BASO % 0.2 % (0-2.0); EOS % 1.9 % (0-4.5); HEMATOCRIT 34.9 % (32.4-45.2); HEMOGLOBIN 11.6 GM/dL (10.7-15.3); LYMPH % 9.7 % (8-40); MCH 33.6 pg (25.7-33.7); MCHC 33.3 g/dl (32.0-36.0); MEAN CELL VOLUME 100.8 fl (80-96); MEAN PLT VOLUME 9.1 fl (7.5-11.1); MONO % 5.4 % (3.8-10.2); NEUT % 82.8 % (42.8-82.8); PLATELET COUNT 276 K/MM3 (134-434); RBC 3.46 M/mm3 (3.60-5.2); RDW 15.3 % (11.6-15.6); WHITE BLOOD COUNT 11.4 K/mm3 (4.0-10.0)
[2019-07-04 08:39] LABS: BLOOD UREA NITROGEN 48.1 mg/dL (7-18); CALCIUM 9.2 mg/dL (8.5-10.1); CREATININE 1.2 mg/dL (0.55-1.3); POTASSIUM 5.6 mmol/L (3.5-5.1)
[2019-07-04] MEDS ORDERED: PT OWN MED DRAWER 7, Y5N ONE ×4 (09:35→18:16)
[2019-07-04] MEDS: BUDESONIDE/FORMETEROL FUMARATE 80/4.5 mcg INHALER IH SCH ×2 (10:00→21:36)
[2019-07-04] MEDS: methylPREDNISolone NA SUCC 40 MG/1 ML VIAL IVPUSH SCH ×2 (10:11→21:35)
[2019-07-04] MEDS: PANTOPRAZOLE 40 MG TABLET (FP) PO SCH (10:11)
[2019-07-04] MEDS: AZITHROMYCIN 250 MG TABLET PO SCH (10:11)
[2019-07-04] MEDS: guaiFENesin 600 MG TABLET.ER (FP) PO SCH ×2 (10:11→21:36)
[2019-07-04] MEDS: FUROSEMIDE 40 MG/4 ML INJECTABLE VIAL IVPUSH SCH (10:11)
[2019-07-04] MEDS: SPIRONOLACTONE 25 MG TABLET (FP) PO SCH (10:11)
[2019-07-04] MEDS: APIXABAN 5 MG TABLET PO SCH ×2 (10:11→21:36)
[2019-07-04] MEDS: ASPIRIN 81 MG CHEWABLE TABLETS PO SCH (10:12)
[2019-07-04] MEDS: POLYETHYLENE GLYCOL 3350 119 GM BTL PO SCH (10:13)
[2019-07-04] MEDS: IRON POLYSACCHARIDES 150 MG CAPSULE PO SCH (11:35)
--- NOTE | 2019-07-04 13:46 | PN ---
Progress Note, Physician History of Present Illness: PULMONARY ALERT,LESS DYSPNEIC,LESS COUGH - Current Medication List Current Medications: Active Medications Albuterol/Ipratropium (Duoneb -) 1 amp NEB RQID [facility] Last Admin: 07/04/19 12:14 Dose: 1 amp Albuterol/Ipratropium (Duoneb -) 1 amp NEB Q4H PRN PRN Reason: SHORTNESS OF BREATH Apixaban (Eliquis -) 5 mg PO BID [facility] Last Admin: 07/04/19 10:11 Dose: 5 mg Aspirin (Asa -) 81 mg PO DAILY [facility] Last Admin: 07/04/19 10:12 Dose: 81 mg Atorvastatin Calcium (Lipitor -) 80 mg PO HS [facility] Last Admin: 07/03/19 21:45 Dose: 80 mg Azithromycin (Zithromax -) 250 mg PO DAILY [facility] Stop: 07/05/19 11:00 Last Admin: 07/04/19 10:11 Dose: 250 mg Budesonide/Formoterol Fumarate (Symbicort 80/4.5mcg -) 2 puff IH BID [facility] Last Admin: 07/04/19 10:00 Dose: 2 puff Furosemide (Lasix Injection -) 40 mg IVPUSH DAILY [facility] Last Admin: 07/04/19 10:11 Dose: 40 mg Guaifenesin (Mucinex -) 600 mg PO BID [facility] Last Admin: 07/04/19 10:11 Dose: 600 mg Insulin Aspart (Novolog Vial Sliding Scale -) 1 vial SQ ACHS [facility]; Protocol Last Admin: 07/04/19 11:41 Dose: 4 units Levothyroxine Sodium (Synthroid -) 50 mcg PO AM [facility] Last Admin: 07/04/19 07:09 Dose: 50 mcg Lisinopril (Prinivil) 10 mg PO AM [facility] Last Admin: 07/04/19 07:09 Dose: 10 mg Methylprednisolone Sodium Succinate (Solu-Medrol -) 40 mg IVPUSH BID [facility] Last Admin: 07/04/19 10:11 Dose: 40 mg Non-Formulary Medication (Desvenlafaxine [Desvenlafaxine Er]) 50 mg PO AM [facility] Oxybutynin Chloride (Ditropan -) 5 mg PO AM [facility] Last Admin: 07/04/19 07:08 Dose: 5 mg Pancrelipase (Creon Dr 36,000 Units Capsule) 2 cap PO ASDIR [facility] Pantoprazole Sodium (Protonix -) 40 mg PO DAILY [facility] Last Admin: 07/04/19 10:11 Dose: 40 mg Polyethylene Glycol (Miralax (For Daily Use) -) 17 gm PO DAILY [facility] Last Admin: 07/04/19 10:13 Dose: 17 gm Polysaccharide Iron Complex (Niferex-150 -) 150 mg PO DAILY [facility] Last Admin: 07/04/19 11:35 Dose: 150 mg Sitagliptin Phosphate (Januvia -) 100 mg PO DAILY@0700 [facility] Last Admin: 07/04/19 07:08 Dose: 100 mg Spironolactone (Aldactone -) 25 mg PO DAILY [facility] Last Admin: 07/04/19 10:11 Dose: 25 mg Trazodone HCl (Desyrel -) 50 mg PO HS [facility] Last Admin: 07/03/19 21:45 Dose: 50 mg - Objective Vital Signs: Vital Signs Temperature 97.4 F L 07/04/19 10:00 Pulse Rate 76 07/04/19 10:00 Respiratory Rate 20 07/04/19 10:00 Blood Pressure 121/57 L 07/04/19 10:00 O2 Sat by Pulse Oximetry (%) 97 07/04/19 10:00 Constitutional: Yes: Well Nourished, Calm Eyes: Yes: WNL HENT: Yes: WNL Neck: Yes: WNL Cardiovascular: Yes: Regular Rate and Rhythm, S1, S2 Respiratory: Yes: Rhonchi (SCATTERED RHONCHI) Gastrointestinal: Yes: Normal Bowel Sounds, Soft Extremities: Yes: WNL Edema: Yes Labs: CBC, BMP 07/04/19 07:45 07/04/19 06:00 Assessment/Plan Problem List - Problems (1) COPD exacerbation Code(s): J44.1 - CHRONIC OBSTRUCTIVE PULMONARY DISEASE W (ACUTE) EXACERBATION (2) Acute bronchitis Code(s): J20.9 - ACUTE BRONCHITIS, UNSPECIFIED (3) Atelectasis Code(s): J98.11 - ATELECTASIS Assessment/Plan Acute COPD Exacerbation improving Acute Bronchitis RML Atelectasis LV Diastolic Dysfunction Atrial Fibrillation Pulmonary HTN HTN Hypothyroidism Dementia - Taper IV medrol - inhaled bronchodilators standing and PRN - Azithromycin - CT findings more consistent with atelectasis rather than bronchiectasis - ? RML syndrome - will need outpt f/u of chest imaging in 2-[address] HUERTAS
--- NOTE | 2019-07-04 14:44 | PN ---
Progress Note (short form) - Note Progress Note: Patient seen and examined in room had breakfast / I am coughing ! Vital Signs Period Temp Pulse Resp BP Sys/Fox Pulse Ox Last 24 Hr 98.1 F-98.8 F 77-98 20-20 109-144/46-96 96-96 neck - jvd heart s1/S2 Lungs rhonchi on right mid field good air movement abd soft non tender ext - calf tenderness / trace edema CBC, BMP 07/04/19 07:45 07/04/19 06:00 CBC, BMP 07/01/19 08:27 07/01/19 08:27 CBC, BMP 06/30/19 07:25 06/30/19 07:[address] reviewed partial atelectasis and possible bronchiectasis right middle lobe ill defined ground glass opacity medial left apical region Active Medications Acetaminophen (Tylenol -) 650 mg PO TID [facility] Stop: 07/02/19 23:59 Last Admin: 07/02/19 06:07 Dose: 650 mg Albuterol/Ipratropium (Duoneb -) 1 amp NEB RQID [facility] Last Admin: 07/02/19 07:45 Dose: 1 amp Albuterol/Ipratropium (Duoneb -) 1 amp NEB Q4H PRN PRN Reason: SHORTNESS OF BREATH Apixaban (Eliquis -) 5 mg PO BID [facility] Last Admin: 07/02/19 09:02 Dose: 5 mg Aspirin (Asa -) 81 mg PO DAILY [facility] Last Admin: 07/02/19 09:03 Dose: 81 mg Atorvastatin Calcium (Lipitor -) 80 mg PO HS [facility] Last Admin: 07/01/19 22:11 Dose: 80 mg Azithromycin (Zithromax -) 250 mg PO DAILY [facility] Stop: 07/05/19 11:00 Last Admin: 07/02/19 09:02 Dose: 250 mg Budesonide/Formoterol Fumarate (Symbicort 80/4.5mcg -) 2 puff IH BID [facility] Last Admin: 07/02/19 09:04 Dose: 2 puff Furosemide (Lasix Injection -) 40 mg IVPUSH DAILY [facility] Last Admin: 07/02/19 09:02 Dose: 40 mg Guaifenesin (Mucinex -) 600 mg PO BID [facility] Last Admin: 07/02/19 09:02 Dose: 600 mg Insulin Aspart (Novolog Vial Sliding Scale -) 1 vial SQ ACHS [facility]; Protocol Last Admin: 07/02/19 06:07 Dose: Not Given Levothyroxine Sodium (Synthroid -) 50 mcg PO AM [facility] Last Admin: 07/02/19 06:08 Dose: 50 mcg Lisinopril (Prinivil) 10 mg PO AM [facility] Last Admin: 07/02/19 06:08 Dose: 10 mg Methylprednisolone Sodium Succinate (Solu-Medrol -) 40 mg IVPUSH Q8H-IV [facility] Last Admin: 07/02/19 09:01 Dose: 40 mg Non-Formulary Medication (Desvenlafaxine [Desvenlafaxine Er]) 50 mg PO AM [facility] Oxybutynin Chloride (Ditropan -) 5 mg PO AM [facility] Last Admin: 07/02/19 06:08 Dose: 5 mg Pancrelipase (Creon Dr 36,000 Units Capsule) 2 cap PO ASDIR [facility] Pantoprazole Sodium (Protonix -) 40 mg PO DAILY [facility] Last Admin: 07/02/19 09:02 Dose: 40 mg Polyethylene Glycol (Miralax (For Daily Use) -) 17 gm PO DAILY [facility] Last Admin: 07/02/19 09:03 Dose: 17 gm Polysaccharide Iron Complex (Niferex-150 -) 150 mg PO DAILY [facility] Last Admin: 07/02/19 09:04 Dose: 150 mg Sitagliptin Phosphate (Januvia -) 100 mg PO DAILY@0700 [facility] Last Admin: 07/02/19 06:08 Dose: 100 mg Spironolactone (Aldactone -) 25 mg PO DAILY [facility] Last Admin: 07/02/19 09:03 Dose: 25 mg Trazodone HCl (Desyrel -) 50 mg PO HS [facility] Last Admin: 07/01/19 22:11 Dose: 50 mg # COPD exac steroids / inh / PPi / mucinex pack added taper steroids has remained afebrile and no reported chills patient known to be non compliant with Inh at residence CT of chest - CT findings more consistent with atelectasis rather than bronchiectasis # HTN well controlled with current meds as out patint # DM tolerates current meds well last A1c 7.0 Problem List - Problems (1) COPD exacerbation Code(s): J44.1 - CHRONIC OBSTRUCTIVE PULMONARY DISEASE W (ACUTE) EXACERBATION (2) Cardiomegaly Code(s): I51.7 - CARDIOMEGALY (3) Cough Code(s): R05 - COUGH (4) Diabetes mellitus type 2 in obese Code(s): E11.69 - TYPE 2 DIABETES MELLITUS WITH OTHER SPECIFIED COMPLICATION; E66.9 - OBESITY, UNSPECIFIED (5) HTN (hypertension) Code(s): I10 - ESSENTIAL (PRIMARY) HYPERTENSION (6) Shortness of breath Code(s): R06.02 - SHORTNESS OF BREATH
[2019-07-04] MEDS: traZODone HCL 50 MG TABLET (FP) PO SCH (21:35)
[2019-07-04] MEDS: ATORVASTATIN CA 80 MG TABLET (FP) PO SCH (21:35)
[2019-07-05] MEDS ORDERED: PT OWN MED DRAWER 7, Y5N ONE ×3 (06:04→16:58)
[2019-07-05] MEDS: INSULIN SLIDING SCALE (NOVOLOG) 1 VIAL SQ SCH ×4 (06:44→21:38)
[2019-07-05] MEDS: LISINOPRIL 10 MG TABLET (FP) PO SCH (06:45)
[2019-07-05] MEDS: OXYBUTYNIN CHLORIDE 5 MG TABLET PO SCH (06:45)
[2019-07-05] MEDS: LEVOTHYROXINE NA 50 MCG TABLET (FP) PO SCH (06:45)
[2019-07-05] MEDS: ALBUTEROL SO4 2.5/IPRATROPIUM 0.5 INH SOL 3 ML VIAL.NEB. NEB SCH ×4 (07:54→19:52)
--- NOTE | 2019-07-05 10:15 | EKG ---
Test Reason : Blood Pressure : / mmHG Vent. Rate : 069 BPM Atrial Rate : 069 BPM P-R Int : 170 ms QRS Dur : 116 ms QT Int : 362 ms P-R-T Axes : 017 -45 084 degrees QTc Int : 387 ms SINUS RHYTHM WITH MARKED SINUS ARRHYTHMIA LEFT ANTERIOR FASCICULAR BLOCK ABNORMAL ECG WHEN COMPARED WITH ECG OF 29-JUN-2019 11:15, NO SIGNIFICANT CHANGE WAS FOUND Confirmed by KRYSTA JIMENEZ, BRITTNEY ([id number]) on 07/05/2019 10:15:06 AM Referred By: Emma FIGUEROA Confirmed By:BRITTNEY CHAPARRO MD
[2019-07-05] MEDS: APIXABAN 5 MG TABLET PO SCH ×2 (10:29→21:36)
[2019-07-05] MEDS: SPIRONOLACTONE 25 MG TABLET (FP) PO SCH (10:30)
[2019-07-05] MEDS: methylPREDNISolone NA SUCC 40 MG/1 ML VIAL IVPUSH SCH ×2 (10:30→21:36)
[2019-07-05] MEDS: ASPIRIN 81 MG CHEWABLE TABLETS PO SCH (10:30)
[2019-07-05] MEDS: guaiFENesin 600 MG TABLET.ER (FP) PO SCH ×2 (10:30→21:36)
[2019-07-05] MEDS: AZITHROMYCIN 250 MG TABLET PO SCH (10:30)
[2019-07-05] MEDS: PANTOPRAZOLE 40 MG TABLET (FP) PO SCH (10:30)
[2019-07-05] MEDS: FUROSEMIDE 40 MG/4 ML INJECTABLE VIAL IVPUSH SCH (10:30)
[2019-07-05] MEDS: IRON POLYSACCHARIDES 150 MG CAPSULE PO SCH (10:32)
[2019-07-05] MEDS: POLYETHYLENE GLYCOL 3350 119 GM BTL PO SCH ×2 (10:34→10:53)
[2019-07-05] MEDS: BUDESONIDE/FORMETEROL FUMARATE 80/4.5 mcg INHALER IH SCH ×2 (10:35→21:36)
--- NOTE | 2019-07-05 10:36 | PN ---
Progress Note (short form) - Note Progress Note: Patient seen and examined in room had breakfast / sleeping "still coughing " Vital Signs Period Temp Pulse Resp BP Sys/Fox Pulse Ox Last 24 Hr 98.1 F-98.8 F 77-98 20-20 109-144/46-96 96-96 kept coughing during exam neck - jvd heart s1/S2 Lungs rhonchi on right mid field good air movement abd soft non tender ext - calf tenderness / trace edema CBC, BMP 07/04/19 07:45 07/04/19 06:00 CBC, BMP 07/01/19 08:27 07/01/19 08:[address] reviewed partial atelectasis and possible bronchiectasis right middle lobe ill defined ground glass opacity medial left apical region Active Medications Albuterol/Ipratropium (Duoneb -) 1 amp NEB RQID [facility] Last Admin: 07/05/19 07:54 Dose: 1 amp Albuterol/Ipratropium (Duoneb -) 1 amp NEB Q4H PRN PRN Reason: SHORTNESS OF BREATH Apixaban (Eliquis -) 5 mg PO BID [facility] Last Admin: 07/05/19 10:29 Dose: 5 mg Aspirin (Asa -) 81 mg PO DAILY [facility] Last Admin: 07/05/19 10:30 Dose: 81 mg Atorvastatin Calcium (Lipitor -) 80 mg PO HS [facility] Last Admin: 07/04/19 21:35 Dose: 80 mg Azithromycin (Zithromax -) 250 mg PO DAILY [facility] Stop: 07/05/19 11:00 Last Admin: 07/05/19 10:30 Dose: 250 mg Budesonide/Formoterol Fumarate (Symbicort 80/4.5mcg -) 2 puff IH BID [facility] Last Admin: 07/05/19 10:35 Dose: 2 puff Furosemide (Lasix Injection -) 40 mg IVPUSH DAILY [facility] Last Admin: 07/05/19 10:30 Dose: 40 mg Guaifenesin (Mucinex -) 600 mg PO BID [facility] Last Admin: 07/05/19 10:30 Dose: 600 mg Insulin Aspart (Novolog Vial Sliding Scale -) 1 vial SQ ACHS [facility]; Protocol Last Admin: 07/05/19 06:44 Dose: 2 units Levothyroxine Sodium (Synthroid -) 50 mcg PO AM [facility] Last Admin: 07/05/19 06:45 Dose: 50 mcg Lisinopril (Prinivil) 10 mg PO AM [facility] Last Admin: 07/05/19 06:45 Dose: 10 mg Methylprednisolone Sodium Succinate (Solu-Medrol -) 40 mg IVPUSH BID [facility] Last Admin: 07/05/19 10:30 Dose: 40 mg Non-Formulary Medication (Desvenlafaxine [Desvenlafaxine Er]) 50 mg PO AM [facility] Oxybutynin Chloride (Ditropan -) 5 mg PO AM [facility] Last Admin: 07/05/19 06:45 Dose: 5 mg Pancrelipase (Creon Dr 36,000 Units Capsule) 2 cap PO ASDIR [facility] Pantoprazole Sodium (Protonix -) 40 mg PO DAILY [facility] Last Admin: 07/05/19 10:30 Dose: 40 mg Polyethylene Glycol (Miralax (For Daily Use) -) 17 gm PO DAILY [facility] Last Admin: 07/05/19 10:34 Dose: 17 gm Polysaccharide Iron Complex (Niferex-150 -) 150 mg PO DAILY [facility] Last Admin: 07/05/19 10:32 Dose: 150 mg Sitagliptin Phosphate (Januvia -) 100 mg PO DAILY@0700 [facility] Last Admin: 07/05/19 06:44 Dose: 100 mg Spironolactone (Aldactone -) 25 mg PO DAILY [facility] Last Admin: 07/05/19 10:30 Dose: 25 mg Trazodone HCl (Desyrel -) 50 mg PO HS [facility] Last Admin: 07/04/19 21:35 Dose: 50 mg # COPD exac steroids / inh / PPi / mucinex / Z pack added taper steroids has remained afebrile and no reported chills patient known to be non compliant with Inh at residence CT of chest - CT findings more consistent with atelectasis rather than bronchiectasis # HTN well controlled with current meds as out patint # DM tolerates current meds well last A1c 7.0 Problem List - Problems (1) COPD exacerbation Code(s): J44.1 - CHRONIC OBSTRUCTIVE PULMONARY DISEASE W (ACUTE) EXACERBATION (2) Cardiomegaly Code(s): I51.7 - CARDIOMEGALY (3) Cough Code(s): R05 - COUGH (4) Diabetes mellitus type 2 in obese Code(s): E11.69 - TYPE 2 DIABETES MELLITUS WITH OTHER SPECIFIED COMPLICATION; E66.9 - OBESITY, UNSPECIFIED (5) HTN (hypertension) Code(s): I10 - ESSENTIAL (PRIMARY) HYPERTENSION (6) Shortness of breath Code(s): R06.02 - SHORTNESS OF BREATH
--- NOTE | 2019-07-05 16:12 | PN ---
Progress Note, Physician History of Present Illness: pulmonary alert,comfortable,-sob - Current Medication List Current Medications: Active Medications Albuterol/Ipratropium (Duoneb -) 1 amp NEB RQID [facility] Last Admin: 07/05/19 16:05 Dose: 1 amp Albuterol/Ipratropium (Duoneb -) 1 amp NEB Q4H PRN PRN Reason: SHORTNESS OF BREATH Apixaban (Eliquis -) 5 mg PO BID [facility] Last Admin: 07/05/19 10:29 Dose: 5 mg Aspirin (Asa -) 81 mg PO DAILY [facility] Last Admin: 07/05/19 10:30 Dose: 81 mg Atorvastatin Calcium (Lipitor -) 80 mg PO HS [facility] Last Admin: 07/04/19 21:35 Dose: 80 mg Budesonide/Formoterol Fumarate (Symbicort 80/4.5mcg -) 2 puff IH BID [facility] Last Admin: 07/05/19 10:35 Dose: 2 puff Furosemide (Lasix Injection -) 40 mg IVPUSH DAILY [facility] Last Admin: 07/05/19 10:30 Dose: 40 mg Guaifenesin (Mucinex -) 600 mg PO BID [facility] Last Admin: 07/05/19 10:30 Dose: 600 mg Insulin Aspart (Novolog Vial Sliding Scale -) 1 vial SQ ACHS [facility]; Protocol Last Admin: 07/05/19 11:59 Dose: Not Given Levothyroxine Sodium (Synthroid -) 50 mcg PO AM [facility] Last Admin: 07/05/19 06:45 Dose: 50 mcg Lisinopril (Prinivil) 10 mg PO AM [facility] Last Admin: 07/05/19 06:45 Dose: 10 mg Methylprednisolone Sodium Succinate (Solu-Medrol -) 40 mg IVPUSH BID [facility] Last Admin: 07/05/19 10:30 Dose: 40 mg Non-Formulary Medication (Desvenlafaxine [Desvenlafaxine Er]) 50 mg PO HS [facility] Oxybutynin Chloride (Ditropan -) 5 mg PO AM [facility] Last Admin: 07/05/19 06:45 Dose: 5 mg Pancrelipase (Creon Dr 36,000 Units Capsule) 2 cap PO ASDIR [facility] Pantoprazole Sodium (Protonix -) 40 mg PO DAILY [facility] Last Admin: 07/05/19 10:30 Dose: 40 mg Polyethylene Glycol (Miralax (For Daily Use) -) 17 gm PO DAILY [facility] Last Admin: 07/05/19 10:53 Dose: Not Given Polysaccharide Iron Complex (Niferex-150 -) 150 mg PO DAILY [facility] Last Admin: 07/05/19 10:32 Dose: 150 mg Sitagliptin Phosphate (Januvia -) 100 mg PO DAILY@0700 [facility] Last Admin: 07/05/19 06:44 Dose: 100 mg Spironolactone (Aldactone -) 25 mg PO DAILY [facility] Last Admin: 07/05/19 10:30 Dose: 25 mg Trazodone HCl (Desyrel -) 50 mg PO HS [facility] Last Admin: 07/04/19 21:35 Dose: 50 mg - Objective Vital Signs: Vital Signs Temperature 97.6 F 07/05/19 14:00 Pulse Rate 68 07/05/19 14:00 Respiratory Rate 20 07/05/19 14:00 Blood Pressure 99/45 L 07/05/19 14:00 O2 Sat by Pulse Oximetry (%) 97 07/04/19 23:17 Constitutional: Yes: Well Nourished, Calm Eyes: Yes: WNL HENT: Yes: WNL Neck: Yes: WNL Cardiovascular: Yes: Regular Rate and Rhythm, S1, S2 Respiratory: Yes: Diminished Gastrointestinal: Yes: Normal Bowel Sounds, Soft Extremities: Yes: WNL Edema: Yes Labs: CBC, BMP Assessment/Plan Problem List - Problems (1) COPD exacerbation Code(s): J44.1 - CHRONIC OBSTRUCTIVE PULMONARY DISEASE W (ACUTE) EXACERBATION (2) Acute bronchitis Code(s): J20.9 - ACUTE BRONCHITIS, UNSPECIFIED (3) Atelectasis Code(s): J98.11 - ATELECTASIS Assessment/Plan Acute COPD Exacerbation improving Acute Bronchitis RML Atelectasis LV Diastolic Dysfunction Atrial Fibrillation Pulmonary HTN HTN Hypothyroidism Dementia - Prednisone 40 mg daily - inhaled bronchodilators standing and PRN - Azithromycin - CT findings more consistent with atelectasis rather than bronchiectasis - ? RML syndrome - will need outpt f/u of chest imaging in 2-[address] HUERTAS
[2019-07-05] MEDS: ATORVASTATIN CA 80 MG TABLET (FP) PO SCH (21:36)
[2019-07-05] MEDS: traZODone HCL 50 MG TABLET (FP) PO SCH (21:36)
[2019-07-05] MEDS ORDERED: DESVENLAFAXINE 50 MG PO SCH (22:00)
[2019-07-06] MEDS ORDERED: PT OWN MED DRAWER 7, Y5N ONE (05:54)
[2019-07-06] MEDS: LEVOTHYROXINE NA 50 MCG TABLET (FP) PO SCH (06:44)
[2019-07-06] MEDS: OXYBUTYNIN CHLORIDE 5 MG TABLET PO SCH (06:44)
[2019-07-06] MEDS: LISINOPRIL 10 MG TABLET (FP) PO SCH (06:44)
[2019-07-06] MEDS: INSULIN SLIDING SCALE (NOVOLOG) 1 VIAL SQ SCH ×3 (06:44→17:48)
[2019-07-06] MEDS: ALBUTEROL SO4 2.5/IPRATROPIUM 0.5 INH SOL 3 ML VIAL.NEB. NEB SCH ×3 (07:20→15:28)
[2019-07-06 07:45] VITALS: TEMP 98.2
[2019-07-06 08:56] LABS: BASO % 0.1 % (0-2.0); EOS % 0.1 % (0-4.5); HEMATOCRIT 34.3 % (32.4-45.2); HEMOGLOBIN 11.4 GM/dL (10.7-15.3); MCH 33.3 pg (25.7-33.7); MCHC 33.3 g/dl (32.0-36.0); MEAN CELL VOLUME 99.9 fl (80-96); MEAN PLT VOLUME 8.7 fl (7.5-11.1); MONO % 6.1 % (3.8-10.2); NEUT % 84.7 % (42.8-82.8); PLATELET COUNT 272 K/MM3 (134-434); RBC 3.43 M/mm3 (3.60-5.2); WHITE BLOOD COUNT 12.4 K/mm3 (4.0-10.0)
[2019-07-06 09:28] LABS: CALCIUM 8.8 mg/dL (8.5-10.1); CREATININE 1.3 mg/dL (0.55-1.3); POTASSIUM 4.9 mmol/L (3.5-5.1)
--- NOTE | 2019-07-06 10:21 | PN ---
Progress Note (short form) - Note Progress Note: PULMONARY States breathing is better. Still with nonproductive cough but better. Wants to go home. Vital Signs Period Temp Pulse Resp BP Sys/Fox Pulse Ox Last 24 Hr 97.3 F-98.2 F 68-88 18-22 88-106/45-55 95-95 Gen: NAD at rest Heart: RRR Lung: no wheezes appreciated Abd: soft, nontender Ext: no edema CBC, BMP 07/06/19 08:15 07/06/19 08:15 Active Medications Albuterol/Ipratropium (Duoneb -) 1 amp NEB RQID [facility] Last Admin: 07/06/19 07:20 Dose: 1 amp Albuterol/Ipratropium (Duoneb -) 1 amp NEB Q4H PRN PRN Reason: SHORTNESS OF BREATH Apixaban (Eliquis -) 5 mg PO BID [facility] Last Admin: 07/05/19 21:36 Dose: 5 mg Aspirin (Asa -) 81 mg PO DAILY [facility] Last Admin: 07/05/19 10:30 Dose: 81 mg Atorvastatin Calcium (Lipitor -) 80 mg PO HS [facility] Last Admin: 07/05/19 21:36 Dose: 80 mg Budesonide/Formoterol Fumarate (Symbicort 80/4.5mcg -) 2 puff IH BID [facility] Last Admin: 07/05/19 21:36 Dose: 2 puff Furosemide (Lasix Injection -) 40 mg IVPUSH DAILY [facility] Last Admin: 07/05/19 10:30 Dose: 40 mg Guaifenesin (Mucinex -) 600 mg PO BID [facility] Last Admin: 07/05/19 21:36 Dose: 600 mg Insulin Aspart (Novolog Vial Sliding Scale -) 1 vial SQ [facility]; Protocol Last Admin: 07/06/19 06:44 Dose: 2 units Levothyroxine Sodium (Synthroid -) 50 mcg PO AM [facility] Last Admin: 07/06/19 06:44 Dose: 50 mcg Lisinopril (Prinivil) 10 mg PO AM [facility] Last Admin: 07/06/19 06:44 Dose: 10 mg Methylprednisolone Sodium Succinate (Solu-Medrol -) 40 mg IVPUSH BID [facility] Last Admin: 07/05/19 21:36 Dose: 40 mg Non-Formulary Medication (Desvenlafaxine [Desvenlafaxine Er]) 50 mg PO HS [facility] Last Admin: 07/05/19 21:36 Dose: 50 mg Oxybutynin Chloride (Ditropan -) 5 mg PO AM [facility] Last Admin: 07/06/19 06:44 Dose: 5 mg Pancrelipase (Creon Dr 36,000 Units Capsule) 2 cap PO ASDIR [facility] Pantoprazole Sodium (Protonix -) 40 mg PO DAILY [facility] Last Admin: 07/05/19 10:30 Dose: 40 mg Polyethylene Glycol (Miralax (For Daily Use) -) 17 gm PO DAILY [facility] Last Admin: 07/05/19 10:53 Dose: Not Given Polysaccharide Iron Complex (Niferex-150 -) 150 mg PO DAILY [facility] Last Admin: 07/05/19 10:32 Dose: 150 mg Sitagliptin Phosphate (Januvia -) 100 mg PO DAILY@0700 [facility] Last Admin: 07/06/19 06:44 Dose: 100 mg Spironolactone (Aldactone -) 25 mg PO DAILY [facility] Last Admin: 07/05/19 10:30 Dose: 25 mg Trazodone HCl (Desyrel -) 50 mg PO HS [facility] Last Admin: 07/05/19 21:36 Dose: 50 mg A/P Acute COPD Exacerbation Acute Bronchitis RML Atelectasis LV Diastolic Dysfunction Atrial Fibrillation Pulmonary HTN HTN Hypothyroidism Dementia - can change steroids to PO prednisone 40mg daily and taper as outpt - inhaled bronchodilators standing and PRN - completed antibiotics - CT findings more consistent with atelectasis rather than bronchiectasis - ? RML syndrome - will need outpt f/u of chest imaging in 2-3 months to reassess - can discharge from pulmonary standpoint Problem List - Problems (1) COPD exacerbation Code(s): J44.1 - CHRONIC OBSTRUCTIVE PULMONARY DISEASE W (ACUTE) EXACERBATION (2) Acute bronchitis Code(s): J20.9 - ACUTE BRONCHITIS, UNSPECIFIED (3) Atelectasis Code(s): J98.11 - ATELECTASIS
[2019-07-06] MEDS ORDERED: predniSONE 20 MG TABLET (UD) PO SCH (10:30)
[2019-07-06] MEDS: guaiFENesin 600 MG TABLET.ER (FP) PO SCH (11:04)
[2019-07-06] MEDS: APIXABAN 5 MG TABLET PO SCH (11:04)
[2019-07-06] MEDS: SPIRONOLACTONE 25 MG TABLET (FP) PO SCH (11:04)
[2019-07-06] MEDS: PANTOPRAZOLE 40 MG TABLET (FP) PO SCH (11:04)
[2019-07-06] MEDS: ASPIRIN 81 MG CHEWABLE TABLETS PO SCH (11:04)
[2019-07-06] MEDS: BUDESONIDE/FORMETEROL FUMARATE 80/4.5 mcg INHALER IH SCH (11:05)
[2019-07-06] MEDS: IRON POLYSACCHARIDES 150 MG CAPSULE PO SCH (11:05)
[2019-07-06] MEDS: POLYETHYLENE GLYCOL 3350 119 GM BTL PO SCH (11:06)
[2019-07-06] MEDS: FUROSEMIDE 40 MG/4 ML INJECTABLE VIAL IVPUSH SCH (11:06)
--- NOTE | 2019-07-06 11:16 | DS ---
Physical Examination Vital Signs: Vital Signs Temperature 98.2 F 07/06/19 07:43 Pulse Rate 84 07/06/19 07:43 Respiratory Rate 20 07/06/19 07:43 Blood Pressure 105/55 L 07/06/19 00:00 O2 Sat by Pulse Oximetry (%) 95 07/05/19 23:10 Findings/Remarks: The patient is an 83 year old female with a significant PMH of COPD, CHF, hypertension, diverticulitis, dementia, hypothyroidism, cardiomyopathy, OA with severe pain to left shoulder and depression who presents to the emergency department [facility] [place] with c/o of SOB and Cough. I evaluated patient last week in usual state of health - she has chromic productive cough and no recent hx of fever and chills.Staff reports increased coughing over last 2 days. History obtained from her is limited, patient is an unreliable historian due to her dementia. The patient denies chest pain, headache and dizziness. Denies fever, chills, nausea, vomiting, diarrhea and constipation. Denies dysuria, frequency, urgency and hematuria. Patient transferred to ED due to BRICEÑO -- possible exacerbation of COPD. Patient treated for COPD / Asthma exacerbation - evaluiated and followed by pulmonary -- will arrange for out patient follow up in 4-6 weeks. Patient now on tapering steroids - will taper slowly as out patient. Constitutional: Yes: Well Nourished, No Distress, Calm Eyes: Yes: Conjunctiva Clear, EOM Intact HENT: Yes: Atraumatic, Normocephalic Neck: Yes: Supple, Trachea Midline Cardiovascular: Yes: Regular Rate and Rhythm Respiratory: Yes: CTA Bilaterally. No: Rales, Rhonchi, Wheezes Gastrointestinal: Yes: Normal Bowel Sounds, Abdomen, Obese ...Rectal Exam: Yes: Deferred Renal/: Yes: WNL Breast(s): Yes: WNL Musculoskeletal: Yes: WNL Extremities: Yes: WNL Edema: No Peripheral Pulses WNL: Yes Integumentary: Yes: WNL Neurological: Yes: Confusion, Pre-Existing Deficit Psychiatric: Yes: Alert, Oriented Labs: CBC, BMP 07/06/19 08:15 07/06/19 08:15 Discharge Summary Problems reviewed: Yes Reason For Visit: ACUTE EXACERBATION OF COPD Current Active Problems Acute bronchitis (Acute) tx Z pack Atelectasis (Acute) duoneb QID Persistent cough (Acute) Shortness of breath (Acute) HTN DM type 2 Hypothyroid GERD Depresssion Atrial Fibrillation OA Dementia hx of diverticulitis Obesity ( weight at d/c 202lbs) Condition: Improved - Instructions Referrals: Alondra Vidal MD [Primary Care Provider] - Disposition: HOME - Home Medications Comprehensive Discharge Medication List: Ambulatory Orders Furosemide 40 mg PO DAILY 04/16/18 Acetaminophen [Tylenol .Regular Strength -] 650 mg PO Q6H PRN tablet 05/12/18 Albuterol 2.5/Ipratropium 0.5 [Duoneb -] 1 amp NEB RQID amp 05/12/18 Apixaban [Eliquis] 5 mg PO BID 06/29/19 Aspirin 81 mg PO DAILY 06/29/19 Atorvastatin Ca [Lipitor] 80 mg PO HS 06/29/19 Desvenlafaxine [Desvenlafaxine ER] 50 mg PO AM 06/29/19 Iron Polysaccharide Complex [Ferrex 150] 150 mg PO DAILY 06/29/19 Levothyroxine [Synthroid -] 50 mcg PO DAILY 06/29/19 Lipase/Protease/Amylase [Mulugeta Carrizales 36,000 Units Capsule] 2 each PO ASDIR Lisinopril 10 mg PO AM 06/29/19 Omeprazole 20 mg PO BID 06/29/19 Oxybutynin Chloride 5 mg PO AM 06/29/19 Sitagliptin Phos/Metformin HCl [Janumet 50-1,000 mg Tablet] 1 each PO AM Spironolactone 25 mg PO DAILY 06/29/19 traZODone HCL [Trazodone HCl] 50 mg PO HS 06/29/19 added Symbicort 80/4.5 2 inh BID Prednisone 40 mg X 3 day 20 mg X 6 days 10 mg X 6 days then D/C mucinex DM BID for 4 weeks Prescription Drug Monitoring Program (I-STOP) results: I-STOP not reviewed
[2019-07-06] MEDS: methylPREDNISolone NA SUCC 40 MG/1 ML VIAL IVPUSH SCH (11:18)
[2019-07-06 14:48] VITALS: BP 115/60; PULSE 82
== END 2019-07-06 17:30 | disposition home or self-care (01) | DRG 191 ==
LOC: JER 10:57 → JERBED 16:11 → J8W 22:23
PROVIDERS: ADMIT Family Medicine; ATTEND Family Medicine
DX: J44.0 Chronic obstructive pulmonary disease with (acute) lower respiratory infection (principal); J98.11 Atelectasis; I50.30 Unspecified diastolic (congestive) heart failure; J44.1 Chronic obstructive pulmonary disease with (acute) exacerbation; F03.90 Unspecified dementia, unspecified severity, without behavioral disturbance, psychotic disturbance, mood disturbance, and anxiety; E03.9 Hypothyroidism, unspecified; F32.9 Major depressive disorder, single episode, unspecified; I25.10 Atherosclerotic heart disease of native coronary artery without angina pectoris; F41.8 Other specified anxiety disorders; R05 Cough; E66.9 Obesity, unspecified; Z68.36 Body mass index [BMI] 36.0-36.9, adult; R06.02 Shortness of breath; E11.9 Type 2 diabetes mellitus without complications; M19.012 Primary osteoarthritis, left shoulder; I27.20 Pulmonary hypertension, unspecified; I48.91 Unspecified atrial fibrillation; J20.9 Acute bronchitis, unspecified; K21.9 Gastro-esophageal reflux disease without esophagitis; I11.0 Hypertensive heart disease with heart failure
CPT/HCPCS: 36415; 71045-TC-FY; 71250-TC; 80048; 80053; 82550; 82962; 83735; 83880; 84443; 84484; 85025; 85027; 93005; 93010; 94640; 97116-GP; 97162-GP; 99285-25

== ENCOUNTER 2019-08-13 16:23 | Inpatient (IN) | payer OTHER, BC ==
--- NOTE | 2019-08-13 17:09 | PDOC ---
History of Present Illness - General Stated Complaint: ALT MENTAL STATUS Time Seen by Provider: 08/13/19 16:39 - History of Present Illness Initial Comments: Ms. Simpson is a 83 y/o female with PMH significant for COPD, CHF, a-fib, DM, HTN , sent in by [facility] today for altered mental status. long term reports that over the past couple of weeks she has become increasingly altered, including not knowing where she is, walking around naked, playing with feces, not able to answer questions. On exam, patient reports that she is in the hospital due to pain, but states that she is no longer having any pain. Oriented to person and place. Per halfway, she was recently started on a course of prednisone this past week. Past History - Past Medical History Allergies/Adverse Reactions: Allergies Allergy/AdvReac Type Severity Reaction Status Date / Time amoxicillin Allergy Verified 06/29/19 11:39 chlorhexidine Allergy Verified 06/29/19 11:39 ciprofloxacin [From Cipro] Allergy Verified 06/29/19 11:39 codeine Allergy Verified 06/29/19 11:39 Quinolones Allergy Verified 06/29/19 11:39 Sulfa (Sulfonamide Allergy Verified 06/29/19 11:39 Antibiotics) sulfamethoxazole Allergy Verified 06/29/19 11:39 [From Bactrim] trimethoprim [From Bactrim] Allergy Verified 06/29/19 11:39 Home Medications: Ambulatory Orders Furosemide 40 mg PO DAILY 04/16/18 Acetaminophen [Tylenol .Regular Strength -] 650 mg PO Q6H PRN tablet 05/12/18 Albuterol 2.5/Ipratropium 0.5 [Duoneb -] 1 amp NEB RQID amp 05/12/18 Apixaban [Eliquis] 5 mg PO BID 06/29/19 Aspirin 81 mg PO DAILY 06/29/19 Atorvastatin Ca [Lipitor] 80 mg PO HS 06/29/19 Desvenlafaxine [Desvenlafaxine ER] 50 mg PO AM 06/29/19 Levothyroxine [Synthroid -] 50 mcg PO DAILY 06/29/19 Lisinopril 10 mg PO AM 06/29/19 Omeprazole 20 mg PO BID 06/29/19 Sitagliptin Phos/Metformin HCl [Janumet 50-1,000 mg Tablet] 1 each PO AM Spironolactone 25 mg PO DAILY 06/29/19 traZODone HCL [Trazodone HCl] 50 mg PO BID 06/29/19 Budesonide/Formeterol Fumarate [SYMBICORT 80/4.5mcg -] 2 puff IH BID 30 Days #1 inhaler 07/06/19 Polyethylene Glycol 3350 [Miralax 119 gm Btl -] 17 gm PO DAILY bottle 07/06/19 predniSONE [Deltasone -] 40 mg PO DAILY 15 Days #20 tablet 07/06/19 Benzonatate [Tessalon Pearls -] 100 mg PO BID 08/13/19 Divalproex [Depakote -] 500 mg PO DAILY 08/13/19 Lipase/Protease/Amylase [Creon Dr 36,000 Units Capsule] 1 each PO DAILY Nitrofurantoin Monohyd/M-Cryst [Macrobid -] 100 mg PO BID 08/13/19 Anemia: No Asthma: No Cancer: No Cardiac Disorders: No COPD: Yes CHF: Yes Dementia: Yes Diabetes: No GI Disorders: Yes (diverticulitis) Disorders: No HTN: Yes Hypercholesterolemia: No Liver Disease: No Psychiatric Problems: Yes (depression) Seizures: No Thyroid Disease: No - Surgical History Abdominal Surgery: No Appendectomy: No Cardiac Surgery: No Cholecystectomy: No Lung Surgery: No Neurologic Surgery: No Orthopedic Surgery: Yes (bilat knee replacement) - Immunization History Immunization Up to Date: No - Psycho Social/Smoking Cessation Hx Smoking History: Never smoked Have you smoked in the past 12 months: No Hx Alcohol Use: No Drug/Substance Use Hx: No Substance Use Type: None Hx Substance Use Treatment: No Review of Systems - Review of Systems Able to Perform ROS?: No *Physical Exam - Physical Exam GENERAL: Awake, alert, disoriented in no acute distress_ HEAD: No signs of trauma, normoc ephalic, atraumatic _ EYES: PERRLA, EOMI, sclera anicteric, conjunctiva clear_ ENT: Hearing grossly normal, nares patent, oropharynx clear without exudates. No uvular deviation. Moist mucosa_ NECK: Normal ROM, supple, no lymphadenopathy, JVD, or masses_ LUNGS: No distress, speaks in full sentences, clear to auscultation bilaterally _ HEART: Regular rate and rhythm, normal S1 and S2, no murmurs appreciated, peripheral pulses normal and equal bilaterally._ ABDOMEN: Soft, nontender, normoactive bowel sounds. No guarding, no rebound. No masses_ EXTREMITIES: Normal inspection, Normal range of motion, no edema. No clubbing or cyanosis_ NEUROLOGICAL: Unable to assess SKIN: Warm, Dry, normal turgor, no rashes or lesions noted_ ED Treatment Course - LABORATORY CBC & Chemistry Diagram: 08/13/19 19:45 08/13/19 19:45 - RADIOLOGY Radiology Studies Ordered: Category Date Time Status HEAD CT WITHOUT CONTRAST [CT] Stat CT Scan 08/13/19 16:58 Ordered CHEST X-RAY PORTABLE* [RAD] Stat Radiology 08/13/19 16:59 Ordered Medical Decision Making - Medical Decision Making 08/13/19 17:07 83 y/o female with PMH significant for CHF, COPD, HTN, HLD, a-fib on eliquis, brought in today for altered mental status. Recently started on prednisone a week ago for cough. -cbc, cmp, tsh, bnp -ekg, trop, cxr -ua, ucx -ativan 08/13/19 17:11 EKG shows 69 bpm, sinus arrhythmia, left axis deviation, no ST elevation/ depression. 08/13/19 17:44 CXR shows no acute intrathoracic pathology. 08/13/19 21:00 Labs reviewed. Laboratory Last Values WBC 11.3 K/mm3 (4.0-10.0) H 08/13/19 19:45 RBC 3.24 M/mm3 (3.60-5.2) L 08/13/19 19:45 Hgb 10.9 GM/dL (10.7-15.3) 08/13/19 19:45 Hct 33.2 % (32.4-45.2) 08/13/19 19:45 MCV 102.3 fl (80-96) H 08/13/19 19:45 MCH 33.6 pg (25.7-33.7) 08/13/19 19:45 MCHC 32.9 g/dl (32.0-36.0) 08/13/19 19:45 RDW 15.0 % (11.6-15.6) 08/13/19 19:45 Plt Count 273 K/MM3 (134-434) 08/13/19 19:45 MPV 8.5 fl (7.5-11.1) 08/13/19 19:45 Absolute Neuts (auto) 7.7 K/mm3 (1.5-8.0) 08/13/19 19:45 Neutrophils % 68.4 % (42.8-82.8) 08/13/19 19:45 Lymphocytes % 21.3 % (8-40) D 08/13/19 19:45 Monocytes % 8.4 % (3.8-10.2) 08/13/19 19:45 Eosinophils % 1.0 % (0-4.5) D 08/13/19 19:45 Basophils % 0.9 % (0-2.0) D 08/13/19 19:45 Nucleated RBC % 0 % (0-0) 08/13/19 19:45 PT with INR 13.80 SEC (9.7-13.0) H 08/13/19 19:45 INR 1.17 (0.83-1.09) H 08/13/19 19:45 PTT (Actin FS) 33.3 SECONDS (25.2-36.5) 08/13/19 19:45 VBG pH 7.45 (7.31-7.41) H 08/13/19 19:45 POC VBG pCO2 40.9 mmHg (38-52) 08/13/19 19:45 POC VBG pO2 51.1 mmHg (28-48) H 08/13/19 19:45 VBG HCO3 28.1 mmol/L (23-29) 08/13/19 19:45 VBG O2 Sat (Isis) 84.9 % (70-80) H 08/13/19 19:45 VBG Base Excess 4.2 meq/l (-2-2) H 08/13/19 19:45 Sodium 138 mmol/L (136-145) 08/13/19 19:45 Potassium 4.9 mmol/L (3.5-5.1) 08/13/19 19:45 Chloride 101 mmol/L (98-107) 08/13/19 19:45 Carbon Dioxide 28 mmol/L (21-32) 08/13/19 19:45 Anion Gap 9 MMOL/L (8-16) 08/13/19 19:45 BUN 43.4 mg/dL (7-18) H 08/13/19 19:45 Creatinine 2.0 mg/dL (0.55-1.3) H 08/13/19 19:45 Est GFR (CKD-EPI)AfAm 25.92 08/13/19 19:45 Est GFR (CKD-EPI)NonAf 22.36 08/13/19 19:45 Random Glucose 105 mg/dL (74-106) 08/13/19 19:45 Lactic Acid 3.1 mmol/L (0.4-2.0) H* 08/13/19 19:45 Calcium 8.7 mg/dL (8.5-10.1) 08/13/19 19:45 Total Bilirubin 0.2 mg/dL (0.2-1) 08/13/19 19:45 AST 20 U/L (15-37) 08/13/19 19:45 ALT 20 U/L (13-61) 08/13/19 19:45 Alkaline Phosphatase 58 U/L (45-117) 08/13/19 19:45 Creatine Kinase 48 U/L (26-192) 08/13/19 19:45 Troponin I < 0.02 ng/ml (0.00-0.05) 08/13/19 19:45 B-Natriuretic Peptide 432.6 pg/ml (5-450) 08/13/19 19:45 Total Protein 6.3 g/dl (6.4-8.2) L 08/13/19 19:45 Albumin 3.2 g/dl (3.4-5.0) L 08/13/19 19:45 TSH 8.20 uIU/ml (0.358-3.74) H 08/13/19 19:45 Free T4 1.21 ng/dl (0.76-1.46) 08/13/19 19:45 08/13/19 22:00 Blayne Vidal who accepts the patient for admission. Discharge - Discharge Information Problems reviewed: Yes Clinical Impression/Diagnosis: Delirium, NIRMALA (acute kidney injury) Condition: Fair - Admission Yes - Follow up/Referral - Patient Discharge Instructions - Post Discharge Activity
--- NOTE | 2019-08-13 17:18 | PDOC ---
Attending Attestation - Resident Resident Name: Tony Dalal - ED Attending Attestation I have performed the following: I have examined & evaluated the patient, The case was reviewed & discussed with the resident, I agree w/resident's findings & plan, Exceptions are as noted - HPI HPI: 08/13/19 17:15 83yo female with copd, dementia, htn, chf, dm with altered ms from her facility. Pt aaox2- person, place. Pt agitated, yelling during interview. Pt states she just wants to go back to her facility. Pt denies all somatic complaints. Pt neuro intact. Pt denies f/c. No cp/sob. No abd pain. No n/v/d. Pt was started on trazadone and steroids about a week ago. - Physicial Exam PE: 08/13/19 17:18 Gen: aaox2, agitated, yelling heent: PERRL, EOMI, MMM, Posterior pharynx clear neck: supple heart: +s1s2 reg lungs: cta b/l abd: soft, nt/nd +bs ext: no c/c/e neuro: cn ii-xii grossly intact, muscle strength 5/5 UE and LE, sensation intact , no focal deficits - Medical Decision Making 08/13/19 17:11 a/p: 83yo female with hx of dementia with ams today -pt was started on prednisone about a week ago -pt agitated upon arrival, yelling, cursing -concern for steroid induced psychosis vs acute on chronic dementia with delirium -will send labs, ua, head ct -ekg -will send vbg -will monitor and reassess 08/13/19 18:21 cxr clear 08/13/19 19:16 pt refusing labs, imaging pt refusing care, agitated, aggressive will medicate 08/13/19 20:44 labs reviewed pt with motion artifact on head ct chem pending wbc 11 08/13/19 21:12 pt with NIRMALA will need ivf pt also with elevated lactate pt refusing straight cath ivf running will use bedpan call placed to Dr. Vidal for admission for nirmala, ams 08/13/19 22:[address] Barba who accepts pt to service Discharge - Discharge Information Problems reviewed: Yes Clinical Impression/Diagnosis: Delirium, NIRMALA (acute kidney injury) Condition: Fair - Admission Yes - Follow up/Referral Referrals: Alondra Vidal MD [Primary Care Provider] - - Patient Discharge Instructions - Post Discharge Activity Heart Score/ECG Review - ECG Intrepretation Comment:: 08/13/19 17:14 sinus at 69, l axis, nl interval, t wave inversions I avl, no acute st changes
[2019-08-13] MEDS ORDERED: LORazepam 2 MG/ML SDV VIAL ONE (19:11)
[2019-08-13 20:17] LABS: BASO % 0.9 % (0-2.0); HEMATOCRIT 33.2 % (32.4-45.2); HEMOGLOBIN 10.9 GM/dL (10.7-15.3); LYMPH % 21.3 % (8-40); MCH 33.6 pg (25.7-33.7); MCHC 32.9 g/dl (32.0-36.0); MEAN CELL VOLUME 102.3 fl (80-96); MEAN PLT VOLUME 8.5 fl (7.5-11.1); MONO % 8.4 % (3.8-10.2); NEUT % 68.4 % (42.8-82.8); PLATELET COUNT 273 K/MM3 (134-434); RBC 3.24 M/mm3 (3.60-5.2); WHITE BLOOD COUNT 11.3 K/mm3 (4.0-10.0)
[2019-08-13 20:18] LABS: VENOUS PC02 40.9 mmHg (38-52); VENOUS PH 7.45 (7.31-7.41); VENOUS PO2 51.1 mmHg (28-48)
[2019-08-13 20:27] LABS: ACTIVATED PTT 33.3 SECONDS (25.2-36.5)
[2019-08-13] MEDS ORDERED: SODIUM CHLORIDE 0.9% 1000 ML INFUS.BAG IV ONE (21:00)
[2019-08-13 21:01] LABS: INR 1.17 (0.83-1.09); PROTHROMBIN TIME (PATIENT) 13.8 SEC (9.7-13.0)
[2019-08-13 21:03] LABS: ALBUMIN 3.2 g/dl (3.4-5.0); BILIRUBIN,TOTAL 0.2 mg/dL (0.2-1); BLOOD UREA NITROGEN 43.4 mg/dL (7-18); CALCIUM 8.7 mg/dL (8.5-10.1); N-TERMINAL BNP 432.6 pg/ml (5-450); POTASSIUM 4.9 mmol/L (3.5-5.1); TOT PROT 6.3 g/dl (6.4-8.2)
[2019-08-14] MEDS ORDERED: ALBUTEROL SO4 2.5/IPRATROPIUM 0.5 INH SOL 3 ML VIAL.NEB. NEB PRN (02:10)
[2019-08-14] MEDS ORDERED: ACETAMINOPHEN 325 MG TABLET (FP) PO PRN (02:11)
[2019-08-14] MEDS ORDERED: sitaGLIPtin PHOSPHATE 50 MG TABLET PO SCH (07:00)
[2019-08-14] MEDS ORDERED: metFORMIN HCL 500 MG TABLET (FP) PO SCH (07:00)
[2019-08-14] MEDS ORDERED: LEVOTHYROXINE NA 50 MCG TABLET (FP) PO SCH (07:00)
[2019-08-14] MEDS: ALBUTEROL SO4 2.5/IPRATROPIUM 0.5 INH SOL 3 ML VIAL.NEB. NEB SCH ×4 (07:30→20:25)
[2019-08-14] MEDS ORDERED: LIPASE/PROTEASE/AMYLASE 36,000 UNIT CAPSULE PO SCH (10:00)
[2019-08-14] MEDS ORDERED: DIVALPROEX SODIUM 500 MG TABLET E.C. PO SCH (10:00)
[2019-08-14] MEDS ORDERED: traZODone HCL 50 MG TABLET (FP) PO SCH (10:00)
[2019-08-14] MEDS ORDERED: BUDESONIDE/FORMETEROL FUMARATE 80/4.5 mcg INHALER IH SCH (10:00)
[2019-08-14] MEDS ORDERED: FUROSEMIDE 40 MG TABLET (FP) PO SCH (10:00)
[2019-08-14] MEDS ORDERED: predniSONE 20 MG TABLET (UD) PO SCH (10:00)
[2019-08-14] MEDS ORDERED: NITROFURANTOIN MACROCRYSTAL 50 MG CAPSULE (FP) PO SCH (10:00)
[2019-08-14] MEDS ORDERED: APIXABAN 5 MG TABLET PO SCH (10:00)
[2019-08-14] MEDS ORDERED: LISINOPRIL 10 MG TABLET (FP) PO SCH (10:00)
[2019-08-14] MEDS ORDERED: SPIRONOLACTONE 25 MG TABLET (FP) PO SCH (10:00)
[2019-08-14] MEDS ORDERED: ASPIRIN COATED 81 MG TABLET.EC PO SCH (10:00)
[2019-08-14] MEDS ORDERED: HALOPERIDOL LACTATE 5 MG/ML IM ONE (10:30)
--- NOTE | 2019-08-14 11:18 | CON.PSY ---
Psychiatry Consult Chief Complaint: Where were you? i have been looking for you sabina. Patient is very confused and disoriented. Very poor historian.on lot of Psych meds. apparantly was behaving kamala bizzarre manner. Symptoms: reports: Memory Impairment - Previous Psychiatric Treatment Outpatient: None Inpatient: None - Previous Substance Abuse Treatment Outpatient: None Inpatient: None - Current Medications Current Medications: Active Medications Acetaminophen (Tylenol -) 650 mg PO Q6H PRN PRN Reason: pain 4-6 Albuterol/Ipratropium (Duoneb -) 1 amp NEB RQID [facility] Last Admin: 08/14/19 07:30 Dose: Not Given Apixaban (Eliquis -) 5 mg PO BID [facility] Aspirin (Ecotrin -) 81 mg PO DAILY [facility] Last Admin: 08/14/19 11:01 Dose: 81 mg Atorvastatin Calcium (Lipitor -) 80 mg PO HS [facility] Budesonide/Formoterol Fumarate (Symbicort 80/4.5mcg -) 2 puff IH BID [facility] Furosemide (Lasix -) 40 mg PO DAILY [facility] Last Admin: 08/14/19 11:00 Dose: 40 mg Levothyroxine Sodium (Synthroid -) 50 mcg PO DAILY@0700 [facility] Last Admin: 08/14/19 06:31 Dose: 50 mcg Lisinopril (Prinivil) 10 mg PO DAILY [facility] Last Admin: 08/14/19 11:00 Dose: 10 mg Metformin HCl (Glucophage -) 1,000 mg PO DAILY@0700 [facility] Last Admin: 08/14/19 06:30 Dose: Not Given Nitrofurantoin Macrocrystals (Macrodantin -) 100 mg PO BID [facility] Pancrelipase (Creon Dr 36,000 Units Capsule) 1 cap PO DAILY [facility] Prednisone (Deltasone -) 40 mg PO DAILY [facility] Last Admin: 08/14/19 11:01 Dose: 40 mg Sitagliptin Phosphate (Januvia -) 50 mg PO DAILY@0700 [facility] Last Admin: 08/14/19 06:30 Dose: Not Given Spironolactone (Aldactone -) 25 mg PO DAILY [facility] Last Admin: 08/14/19 11:01 Dose: 25 mg - Allergies Allergies: Allergies Allergy/AdvReac Type Severity Reaction Status Date / Time amoxicillin Allergy Verified 06/29/19 11:39 chlorhexidine Allergy Verified 06/29/19 11:39 ciprofloxacin [From Cipro] Allergy Verified 06/29/19 11:39 codeine Allergy Verified 06/29/19 11:39 Quinolones Allergy Verified 06/29/19 11:39 Sulfa (Sulfonamide Allergy Verified 06/29/19 11:39 Antibiotics) sulfamethoxazole Allergy Verified 06/29/19 11:39 [From Bactrim] trimethoprim [From Bactrim] Allergy Verified 06/29/19 11:39 - Current Living Status Usual Living Arrangement: Long Term - Current Mental Status Evaluation Appearance: Well Groomed Attitude: Cooperative - Affect Affect: Constrictive Appropriateness: Not Appropriate - Mood Mood: Irritable - Speech/Language Expressive: Delayed - Psychomotor Activity Psychomotor Activity: Slowed - Thought Process Thought Process: Circumstantial - Thought Content Hallucinations: Absent Delusions: Absent - Self Perception Self Perception: No Impairment - Cognition Attention: Diminished Orientation: Time Memory, Immediate Recall: Impaired Memory, Short Term: 1/3 Memory, Remote with Promptin/3 - Concentration Serial Sevens Intact: No Simple Calculations Intact: No - Abstraction Proverb Interpretation: Impaired Judgement: Moderately Impaired - Insight Insight: Impaired - Impulse Control Impulse Control: Minimally Impaired - Suicidal Ideation Suicidal Ideation: No - Homicidal Ideation Homicidal Ideation: No Assessment/Plan 1) d/c all psych meds which may be contributing to increased confusion.
--- NOTE | 2019-08-14 14:04 | EKG ---
Test Reason : Blood Pressure : / mmHG Vent. Rate : 069 BPM Atrial Rate : 069 BPM P-R Int : 174 ms QRS Dur : 112 ms QT Int : 392 ms P-R-T Axes : 043 -44 093 degrees QTc Int : 420 ms NORMAL SINUS RHYTHM WITH SINUS ARRHYTHMIA LEFT AXIS DEVIATION T WAVE ABNORMALITY, CONSIDER LATERAL ISCHEMIA NONSPECIFIC INTRAVENTRICULAR CONDUCTION DEFECT ABNORMAL ECG WHEN COMPARED WITH ECG OF 04-JUL-2019 14:46, NO SIGNIFICANT CHANGE WAS FOUND Confirmed by SOILA KUMAR MD ([id number]) on 08/14/2019 2:04:12 PM Referred By: Confirmed By:SOILA KUMAR MD
[2019-08-14 15:25] VITALS: BMI 31.6
--- NOTE | 2019-08-14 16:58 | HP ---
Admitting History and Physical - Primary Care Physician PCP: Alondra Vidal I - Admission History Source: Medical Record Limitations to Obtaining History: Dementia, Poor Historian, Uncooperative - Past Medical History CLIENT SERVICES ASSISTANT: Yes: Dementia Cardiovascular: Yes: CAD, CHF, HTN Pulmonary: Yes: COPD Renal/: Yes: Renal Inusuff Psych: Yes: Anxiety, Depression, Psychosis Musculoskeletal: Yes: Osteoarthritis (chronic left shoulder pain - seen by ortho on several occasions & followed by pain management) - Past Surgical History Past Surgical History: Yes: None, Joint Replacement - Smoking History Smoking history: Never smoked Have you smoked in the past 12 months: No - Alcohol/Substance Use Hx Alcohol Use: No History of Substance Use: reports: None - Social History Usual Living Arrangement: Yes: Assisted Living ([facility]) ADL: Support Services History of Recent Travel: No Home Medications - Allergies Allergies/Adverse Reactions: Allergies Allergy/AdvReac Type Severity Reaction Status Date / Time amoxicillin Allergy Verified 06/29/19 11:39 chlorhexidine Allergy Verified 06/29/19 11:39 ciprofloxacin [From Cipro] Allergy Verified 06/29/19 11:39 codeine Allergy Verified 06/29/19 11:39 Quinolones Allergy Verified 06/29/19 11:39 Sulfa (Sulfonamide Allergy Verified 06/29/19 11:39 Antibiotics) sulfamethoxazole Allergy Verified 06/29/19 11:39 [From Bactrim] trimethoprim [From Bactrim] Allergy Verified 06/29/19 11:39 - Home Medications Home Medications: Ambulatory Orders Furosemide 40 mg PO DAILY 04/16/18 Acetaminophen [Tylenol .Regular Strength -] 650 mg PO Q6H PRN tablet 05/12/18 Albuterol 2.5/Ipratropium 0.5 [Duoneb -] 1 amp NEB RQID amp 05/12/18 Apixaban [Eliquis] 5 mg PO BID 06/29/19 Aspirin 81 mg PO DAILY 06/29/19 Atorvastatin Ca [Lipitor] 80 mg PO HS 06/29/19 Desvenlafaxine [Desvenlafaxine ER] 50 mg PO AM 06/29/19 Levothyroxine [Synthroid -] 50 mcg PO DAILY 06/29/19 Lisinopril 10 mg PO AM 06/29/19 Omeprazole 20 mg PO BID 06/29/19 Sitagliptin Phos/Metformin HCl [Janumet 50-1,000 mg Tablet] 1 each PO AM Spironolactone 25 mg PO DAILY 06/29/19 traZODone HCL [Trazodone HCl] 50 mg PO BID 06/29/19 Budesonide/Formeterol Fumarate [SYMBICORT 80/4.5mcg -] 2 puff IH BID 30 Days #1 inhaler 07/06/19 Polyethylene Glycol 3350 [Miralax 119 gm Btl -] 17 gm PO DAILY bottle 07/06/19 predniSONE [Deltasone -] 40 mg PO DAILY 15 Days #20 tablet 07/06/19 Benzonatate [Tessalon Pearls -] 100 mg PO BID 08/13/19 Divalproex [Depakote -] 500 mg PO DAILY 08/13/19 Lipase/Protease/Amylase [Creon Dr 36,000 Units Capsule] 1 each PO DAILY Nitrofurantoin Monohyd/M-Cryst [Macrobid -] 100 mg PO BID 08/13/19 Review of Systems - Review of Systems Constitutional: reports: No Symptoms Eyes: reports: No Symptoms HENT: reports: No Symptoms Neck: reports: No Symptoms Cardiovascular: reports: No Symptoms Respiratory: reports: Cough Gastrointestinal: reports: No Symptoms Genitourinary: reports: No Symptoms Breasts: reports: No Symptoms Reported Musculoskeletal: reports: No Symptoms Integumentary: reports: No Symptoms Neurological: reports: Confusion Endocrine: reports: No Symptoms Hematology/Lymphatic: reports: No Symptoms Psychiatric: reports: No Symptoms Physical Examination Vital Signs: Vital Signs Temperature 98.4 F 08/14/19 15:23 Pulse Rate 74 08/14/19 15:23 Respiratory Rate 18 08/14/19 15:23 Blood Pressure 127/67 08/14/19 15:23 O2 Sat by Pulse Oximetry (%) 98 08/14/19 03:00 Constitutional: Yes: Well Nourished Eyes: Yes: Conjunctiva Clear HENT: Yes: Normocephalic Neck: Yes: Supple, Trachea Midline Cardiovascular: Yes: Regular Rate and Rhythm Respiratory: Yes: Regular, CTA Bilaterally Gastrointestinal: Yes: Normal Bowel Sounds, Soft ...Rectal Exam: Yes: Deferred Renal/: Yes: WNL Breast(s): Yes: WNL Musculoskeletal: Yes: WNL Edema: No Peripheral Pulses WNL: No Integumentary: Yes: WNL Neurological: Yes: Confusion ...Motor Strength: WNL Psychiatric: Yes: Alert Labs: CBC, BMP 08/13/19 19:45 08/13/19 19:45 Imaging - Results Chest X-ray: Report Reviewed Cat Scan: Report Reviewed Assessment/Plan Resident with Dementia, HTN, CAD, COPD and CHF admitted for change in mental status, cough and elevated lactic acid level. Chest xray neg for PNA. Lactic acid level returned to normal. Pt agitated in unfamiliar environment. Evaluated by Psych. Psych meds dc'd. Return to [facility].
[2019-08-14 20:04] LABS: ALBUMIN 3.3 g/dl (3.4-5.0); BILIRUBIN,TOTAL 0.1 mg/dL (0.2-1); BLOOD UREA NITROGEN 33.4 mg/dL (7-18); CALCIUM 9.2 mg/dL (8.5-10.1); CREATININE 1.6 mg/dL (0.55-1.3); POTASSIUM 5.2 mmol/L (3.5-5.1); TOT PROT 6.6 g/dl (6.4-8.2)
[2019-08-14 21:12] VITALS: BP 126/63; PULSE 79; TEMP 97.4
[2019-08-14] MEDS ORDERED: ATORVASTATIN CA 80 MG TABLET (FP) PO SCH (22:00)
[2019-08-15] MEDS ORDERED: LEVOTHYROXINE NA 75 MCG TABLET (FP) PO SCH (07:00)
== END 2019-08-14 21:44 | disposition home or self-care (01) | DRG 683 ==
LOC: JER 16:23 → JERBED 22:03 → J5S 08-14 01:22
PROVIDERS: ADMIT Internal Medicine; ATTEND Internal Medicine
DX: N17.9 Acute kidney failure, unspecified (principal); F03.91 Unspecified dementia, unspecified severity, with behavioral disturbance; F19.921 Other psychoactive substance use, unspecified with intoxication with delirium; J44.9 Chronic obstructive pulmonary disease, unspecified; I50.9 Heart failure, unspecified; E11.9 Type 2 diabetes mellitus without complications; I10 Essential (primary) hypertension; I25.10 Atherosclerotic heart disease of native coronary artery without angina pectoris
CPT/HCPCS: 36415; 70450-TC; 71045-TC-FY; 72125-TC; 80053; 82272; 82550; 82607; 82803; 82962; 83605; 83880; 84439; 84443; 84484; 85025; 85610; 85730; 93005; 93010; 94640; 99285-25; J7030